=== PATIENT | male | born 1965 | race Caucasian/White ===

== ENCOUNTER 2017-02-21 15:13 | Inpatient (IN) | payer MEDICAID ==
[~2017-02-21] VITALS: Ht 124.5 cm; Wt 61.9 kg
[2017-02-21] MEDS ORDERED: morphine 4 MG/ML VIAL IV STA (15:54)
[2017-02-21] MEDS ORDERED: KETOROLAC 30 MG INJ IV STA (15:54)
[2017-02-21] MEDS ORDERED: HYDR-906 PO (16:14)
[2017-02-21] MEDS ORDERED: NAPR-685 PO (16:14)
--- NOTE | 2017-02-21 16:21 | ERD ---
ER Documentation Chief Complaint Date/Time DATE: 02/21/17 TIME: 16:16 Chief Complaint Chronic pain exacerbated by bed at his new residential. HPI This 52-year-old male comes emergency room from his residential facility complaining of pain. He says that the beds that are not very good and he has chronic back pain. Also complains of whole body pain. This is pain is chronic and this is not new for him. He denies any fevers chills specific chest pain, nausea and vomiting. States he does not want a shot for the pain he wants an IV started to get pain medication. He has chronic debility with multiple amputations. States that he feels somewhat lightheaded. Denies any history of blood in his stool. Does not know if his hemoglobin is ever been low. ROS All systems reviewed and are negative except as per history of present illness. Medications Home Meds Active Scripts Hydrocodone/Acetaminophen ([place] 5-325 Tablet) 1 Each Tablet, 1 EACH PO Q6, #10 TAB Prov:CHINA BRADLEY DO 02/21/17 Naproxen* (Naproxen*) 375 Mg Tablet, 375 MG PO BID Y for PAIN, #10 TAB Prov:CHINA BRADLEY DO 02/21/17 Reported Medications Rivaroxaban* (Xarelto*) 15 Mg Tablet, 15 MG PO WITH DINNER, TAB 02/21/17 Pantoprazole* (Pantoprazole*) 40 Mg Tablet.dr, 40 MG PO AC BREAKFAST, TAB 02/21/17 Ondansetron Hcl* (Ondansetron Hcl*) 4 Mg Tablet, 4 MG PO Q6H Y for NAUSEA AND/ OR VOMITING, TAB 02/21/17 Morphine Sulfate* (Morphine* Liq) 10 Mg/5 Ml Solution, 2.5 MG PO Q6H Y for NEEDED, ML FOR SEVERE PAIN 7-10 SCALE 02/21/17 Magnesium Hydroxide* (Milk Of Magnesia*) 400 Mg/5 Ml Oral.susp, 30 ML PO DAILY, ML 02/21/17 Metoprolol Tartrate* (Lopressor*) 25 Mg Tab, 12.5 MG PO BID, #60 TAB HOLD FOR BP<100 OR HR<60 02/21/17 Magnesium Oxide* (Magnesium Oxide*) 400 Mg Tablet, 400 MG PO DAILY, TAB 02/21/17 Lorazepam* (Lorazepam*) 0.5 Mg Tablet, 0.5 MG PO Q4 Y for ANXIETY, TAB 02/21/17 Ibuprofen* (Ibuprofen*) 400 Mg Tablet, 400 MG PO Q6H Y for PAIN, TAB MAILD PAIN 02/21/17 Furosemide* (Furosemide*) 20 Mg Tablet, 20 MG PO DAILY, #60 TAB 02/21/17 Docusate Sodium* (Docusate Sodium*) 100 Mg Capsule, 100 MG PO BID, #60 CAP 02/21/17 Aspirin* (Aspirin* EC) 81 Mg Tablet.dr, 81 MG PO DAILY, TAB 02/21/17 Amiodarone Hcl* (Amiodarone Hcl*) 200 Mg Tablet, 200 MG PO BID, #60 TAB HOLD FOR SBP<100 02/21/17 Albuterol Sulfate* (Albuterol Sulfate* Neb) 0.083%-3 Ml Neb, 1.25 MG NEB Q4H, # 30 VIAL 02/21/17 Acetaminophen* (Acetaminophen*) 325 Mg Tablet, 325 MG PO Q4H Y for PAIN AND OR ELEVATED TEMP, #30 TAB FOR TEMP.>100F 02/21/17 Allergies Allergies: Coded Allergies: vancomycin (Verified Allergy, Unknown, 02/21/17) Physical Exam Vitals Vital Signs Date Time Temp Pulse Resp B/P Pulse Ox O2 Delivery O2 Flow Rate FiO2 02/21/17 22:58 98.4 98 16 125/90 98 Room Air 02/21/17 21:00 98 16 121/81 98 Room Air 02/21/17 18:27 98.6 98 20 110/69 98 Room Air 02/21/17 16:05 97.9 106 22 146/74 95 Physical Exam Const: [] No distress Head: Atraumatic Eyes: Normal Conjunctiva ENT: Normal External Ears, Nose and Mouth. Neck: Full range of motion..~ No meningismus. Resp: Clear to auscultation bilaterally Cardio: Regular rate and rhythm, no murmurs Abd: Soft, non tender, non distended. Normal bowel sounds Skin: No petechiae or rashes Back: No midline or flank tenderness Ext: No cyanosis, or edema, amputations of all 4 extremities with no signs of infection and good capillary refill. Neur: Awake and alert and oriented 3, no focal deficits Psych: Normal Mood and Affect Result Diagram: 02/21/17 1835 02/21/17 1835 Results 24 hrs Laboratory Tests Test 02/21/17 18:35 White Blood Count 7.810^3/ul Red Blood Count 3.2310^6/ul Hemoglobin 7.9g/dl Hematocrit 27.9% Mean Corpuscular Volume 86.4fl Mean Corpuscular Hemoglobin 24.5pg Mean Corpuscular Hemoglobin Concent 28.3g/dl Red Cell Distribution Width 22.6% Platelet Count 10810^3/UL Mean Platelet Volume 8.1fl Neutrophils % 75.7% Lymphocytes % 14.5% Monocytes % 7.2% Eosinophils % 1.8% Basophils % 0.4% Nucleated Red Blood Cells % 0.0/100WBC Neutrophils # (Manual) 5.910^3/ul Lymphocytes # 1.110^3/ul Monocytes # 0.610^3/ul Eosinophils # 0.110^3/ul Basophils # 0.010^3/ul Nucleated Red Blood Cells # 0.010^3/ul Sodium Level 131mmol/L Potassium Level 4.5mmol/L Chloride Level 99mmol/L Carbon Dioxide Level 24mmol/L Anion Gap 13 Blood Urea Nitrogen 27mg/dl Creatinine 0.82mg/dl Glucose Level 72mg/dl Calcium Level 9.3mg/dl Total Bilirubin 0.4mg/dl Direct Bilirubin 0.00mg/dl Indirect Bilirubin 0.4mg/dl Aspartate Amino Transf (AST/SGOT) 37IU/L Alanine Aminotransferase (ALT/SGPT) 25IU/L Alkaline Phosphatase 371IU/L Total Protein 7.8g/dl Albumin 3.1g/dl Globulin 4.70g/dl Albumin/Globulin Ratio 0.65 Salicylates Level < 1.0mg/dl Acetaminophen Level < 10.0ug/ml Ethyl Alcohol Level < 10.0mg/dl Current Medications Medications (Trade) Dose Ordered Sig/Sofia Route PRN Reason Start Time Stop Time Status Last Admin Dose Admin Ketorolac Tromethamine (Toradol) 30 mg ONCE STAT IV 02/21/17 15:54 02/21/17 16:25 DC Morphine Sulfate (morphine) 4 mg ONCE STAT IV 02/21/17 15:54 02/21/17 16:25 DC Ketorolac Tromethamine (Toradol) 60 mg ONCE STAT IM 8/15/17 16:23 02/21/17 18:57 DC Morphine Sulfate (morphine) 4 mg ONCE ONCE IM 02/21/17 16:30 02/21/17 18:57 DC Haloperidol (Haldol) 5 mg ONCE STAT IM 02/21/17 17:40 02/21/17 18:57 DC Acetaminophen/ Hydrocodone Bitart ([place] (5/325)) 1 tab ONCE ONCE PO 02/21/17 19:00 02/21/17 19:01 DC 02/21/17 19:11 Ondansetron HCl (Zofran Inj) 4 mg BRIDGE ORDER PRN IV NAUSEA AND/OR VOMITING 02/21/17 22:00 02/22/17 21:59 Acetaminophen (Tylenol Tab) 650 mg ER BRIDGE PRN PO MILD PAIN/FEVER 02/21/17 22:00 02/22/17 21:59 Procedures/MDM Exacerbation of chronic pain. Patient is unfortunate debilitated patient multiple amputations however he does display some drug seeking behavior. Gave him the benefit of the doubt and administered IV Toradol and morphine. His pain is reduced. Does have mild tachycardia with a hemoglobin of 7.9. Currently he states he does not want any blood transfusion. He will be admitted for further workup of his anemia and mild tachycardia. media planner interpretation: Mild sinus tachycardia alternating with normal sinus rhythm in 90s. No arrhythmia Departure Diagnosis: Primary Impression: Chronic pain Additional Impressions: Normocytic anemia Symptomatic anemia Hyponatremia Condition: Stable Patient Instructions: Back Pain (Acute Or Chronic), Chronic Pain Additional Instructions: Call your primary care doctor TOMORROW for an appointment during the next 2-3 days.See the doctor sooner or return here if your condition worsens before your appointment time. CHINA BRADLEY DO Feb 21, 2017 16:21
[2017-02-21] MEDS ORDERED: KETOROLAC 60 MG INJ IM STA (16:23)
[2017-02-21] MEDS ORDERED: morphine 10 MG INJ IM ONE (16:30)
[2017-02-21] MEDS ORDERED: HALOPERIDOL 5 MG INJ IM STA (17:40)
[2017-02-21] MEDS ORDERED: HYDROCODONE/APAP (5/325) TAB PO ONE (19:00)
[2017-02-21 19:07] LABS: ABNORMAL IP MESSAGE 1; BASOPHILS % 0.4 % (0.0-2.0); EOSINOPHILS # 0.1 10^3/ul (0.0-0.5); EOSINOPHILS % 1.8 % (0.0-7.0); HEMATOCRIT 27.9 % (42.0-52.0); HEMOGLOBIN 7.9 g/dl (14.0-18.0); LYMPHOCYTES # 1.1 10^3/ul (0.8-2.9); LYMPHOCYTES % 14.5 % (15.0-51.0); MEAN CORPUSCULAR HEMOGLOBIN 24.5 pg (29.0-33.0); MEAN CORPUSCULAR HGB CONC 28.3 g/dl (32.0-37.0); MEAN CORPUSCULAR VOLUME 86.4 fl (82.0-101.0); MEAN PLATELET VOLUME 8.1 fl (7.4-10.4); MONOCYTE # 0.6 10^3/ul (0.3-0.9); MONOCYTES % 7.2 % (0.0-11.0); NEUTROPHILS % 75.7 % (39.0-77.0); PLATELET COUNT 546 10^3/UL (140-415); POSITIVE DIFF @See below; RED BLOOD COUNT 3.23 10^6/ul (4.70-6.10); RED CELL DISTRIBUTION WIDTH 22.6 % (11.5-14.5); WHITE BLOOD COUNT 7.8 10^3/ul (4.8-10.8)
[2017-02-21 19:26] LABS: ALANINE AMINOTRANSFERASE 25 IU/L (13-69); ALBUMIN 3.1 g/dl (3.3-4.9); ALBUMIN/GLOBULIN RATIO 0.65; ALKALINE PHOSPHATASE 371 IU/L (42-121); ANION GAP 13 (8-16); ASPARTATE AMINO TRANSFERASE 37 IU/L (15-46); BILIRUBIN,INDIRECT 0.4 mg/dl (0-1.1); BILIRUBIN,TOTAL 0.4 mg/dl (0.2-1.3); BLOOD UREA NITROGEN 27 mg/dl (7-20); CALCIUM 9.3 mg/dl (8.4-10.2); CARBON DIOXIDE 24 mmol/L (21-31); CHLORIDE 99 mmol/L (97-110); CREATININE 0.82 mg/dl (0.61-1.24); GLUCOSE 72 mg/dl (70-220); POTASSIUM 4.5 mmol/L (3.5-5.1); SODIUM 131 mmol/L (135-144); TOTAL PROTEIN 7.8 g/dl (6.1-8.1)
[2017-02-21 19:27] LABS: ACETAMINOPHEN < 10.0 ug/ml (10.0-30.0); ETHANOL < 10.0 mg/dl; SALICYLATE < 1.0 mg/dl (5.0-30.0)
[2017-02-21] MEDS ORDERED: ACET325T45 PO (21:44)
[2017-02-21] MEDS ORDERED: ALBU2.5V3 NEB (21:45)
[2017-02-21] MEDS ORDERED: AMIO200T2 PO (21:46)
[2017-02-21] MEDS ORDERED: ASPI-664 PO (21:46)
[2017-02-21] MEDS ORDERED: DOCU-159 PO (21:46)
[2017-02-21] MEDS ORDERED: FURO20TA3 PO (21:47)
[2017-02-21] MEDS ORDERED: IBUP400T22 PO (21:48)
[2017-02-21] MEDS ORDERED: MAGN400T28 PO (21:49)
[2017-02-21] MEDS ORDERED: LORA0.5T PO (21:49)
[2017-02-21] MEDS ORDERED: MAGN400O4 PO (21:51)
[2017-02-21] MEDS ORDERED: METO-448 PO (21:51)
[2017-02-21] MEDS ORDERED: ONDA4TAB95 PO (21:54)
[2017-02-21] MEDS ORDERED: MORP10SO4 PO (21:54)
[2017-02-21] MEDS ORDERED: PANT40TA4 PO (21:55)
[2017-02-21] MEDS ORDERED: RIVA15TA PO (21:56)
[2017-02-21] MEDS ORDERED: ONDANSETRON 4 MG INJ IV PRN (22:00)
[2017-02-21] MEDS ORDERED: ACETAMINOPHEN 325 MG TAB PO PRN (22:00)
[2017-02-21 22:58] VITALS: PULSE 98; TEMP 98.4
[2017-02-21 23:50] VITALS: Ht 124.5 cm; Wt 61.9 kg
[2017-02-22] MEDS ORDERED: ACETAMINOPHEN 325 MG TAB PO PRN (01:00)
[2017-02-22 03:00] VITALS: BP 99/59; RESP 18
--- NOTE | 2017-02-22 06:29 | HP ---
Date/Time of Note Date/Time of Note DATE: 02/22/17 TIME: 06:11 Assessment/Plan VTE Prophylaxis VTE Prophylaxis Intervention: other (We will hold blood thinners and given patient is anemic. No SCDs due to bilateral lower extremity amputation) Lines/Catheters IV Catheter Type (from Rust): No IV access Urinary Cath still in place: Yes (pt admitted with f/c) Reason Cath still needed: terminal illness/intractable pain Assessment/Plan Assessment/Plan 1. Chronic pain -Patient has bilateral upper and lower extremity limb amputation and has been residing at the [facility]. Patient was transferred to [facility] mainly for pain management. -Palliative care/pain management consult will be placed with Dr. Gauthier 2. Bilateral upper and lower limb amputation -Supportive care 3. CAD with a history of stent -Continue cardiac meds 4. Likely history of systolic dysfunction -will order 2D echo -Cardiology consult was needed 5. Anemia, likely secondary to chronic disease -Iron panel to evaluate for iron deficiency -FOBT to evaluate for GI blood loss especially given patient has been on rivaroxaban 6. Mild hyponatremia -NS IVF HPI/ROS Admit Date/Time Admit Date/Time Feb 21, 2017 at 21:33 Hx of Present Illness This is a 52-year-old male with history of CAD with stent, likely systolic dysfunction, bilateral upper and lower extremity limb amputation who was sent from [facility] for pain management. Patient stated that he does not like facility because his pain is not controlled, does not like the food and the bed is uncomfortable. When he presented to the ER, his heart rate was 106 otherwise rest of his vitals and limits of normal range. Labs shows hemoglobin of 7.9, sodium 131, BUN 27 and alk phos 371 otherwise CBC and CMP within acceptable range. Patient reportedly refused blood transfusion in the ER. PMH/Family/Social Past Medical History Medical History: congestive heart failure, coronary artery disease Past Surgical History Past Surgical Hx: other (Bilateral upper and lower extremity amputations) Social History Alcohol Use: none Smoking Status: Unknown if ever smoked Drug Use: none Exam/Review of Systems Vital Signs Vitals Vital Signs Date Time Temp Pulse Resp B/P Pulse Ox O2 Delivery O2 Flow Rate FiO2 02/22/17 03:00 98.0 100 18 99/59 93 02/21/17 22:58 Room Air Intake and Output 02/21/17 02/21/17 02/22/17 15:00 23:00 07:00 Intake Total 480 ml Output Total 900 ml Balance -420 ml Exam Constitutional: other (In mild distress due to pain. ) Head: atraumatic, normocephalic Eyes: PERRL Respiratory: clear to auscultation, normal air movement Cardiovascular: other (Tachycardic with regular rhythm) Gastrointestinal: soft Extremities: other (Bilateral upper and lower extremity amputations) Labs Result Diagram: 02/21/17183402/21/17 183 Medications Medications Current Medications Acetaminophen/ Hydrocodone Bitart ([place] (5/325)) 1 tab Q4H PRN PO PAIN; Start 02/22/17 at 01:00 Ondansetron HCl (Zofran Tab) 4 mg Q6H PRN PO NAUSEA AND/OR VOMITING; Start at 01:00 Acetaminophen (Tylenol Tab) 650 mg Q6H PRN PO PAIN AND OR ELEVATED TEMP; Start 02/22/17 at 01:00 Amiodarone HCl (Cordarone) 200 mg BID PO ; Start 02/22/17 at 09:00; Status UNV Aspirin (Halfprin) 81 mg DAILY PO ; Start 02/22/17 at 09:00; Status UNV Docusate Sodium (Colace) 100 mg BID PO ; Start 02/22/17 at 09:00; Status UNV Furosemide (Lasix) 20 mg DAILY PO ; Start 02/22/17 at 09:00; Status UNV Lorazepam (Ativan) 0.5 mg Q4 PRN PO ANXIETY; Start 02/22/17 at 06:30; Status UNV Magnesium Oxide (Mag-Ox 400) 400 mg DAILY PO ; Start 02/22/17 at 09:00; Status UNV Metoprolol Tartrate (Lopressor) 12.5 mg BID PO ; Start 02/22/17 at 09:00; Status UNV VENKAT CHEEMA MD Feb 22, 2017 06:25
[2017-02-22] MEDS ORDERED: LORAZEPAM 0.5 MG TAB PO PRN (06:30)
[2017-02-22] MEDS: PANTOPRAZOLE (EC) 40 MG TAB PO SCH (07:30)
[2017-02-22] MEDS: MAGNESIUM OXIDE 400 MG TAB PO SCH (09:00)
--- NOTE | 2017-02-22 11:12 | RADRPT ---
Echocardiogram Report Patient Name: CHRISTIANO GODINEZ Gender: Male Date: 1965 Study Date: 22-Feb-2017 Stringed Instrument Repairer: [facility] Location: 2266 Ref. Physician: VENKAT CHEEMA Quality: Adequate Procedures: Transthoracic echocardiogram with complete 2D, M-Mode, and doppler examination. Indications: Eval for depreessed EF. 2D/M Mode Doppler Measurement Value Normal Ranges Measurement Value Normal Ranges LVIDd 2D 6.7 3.5 - 5.6 cm AV Peak Kailash 1.1 m/sec LVIDs 2D 5.8 2.1 - 4.1 cm AV Peak PG 5.0 mmHg FS 2D 13.9 % LVOT Peak Kailash 0.9 m/sec LVPWd 2D 1.3 0.6 - 1.1 cm LVOT Peak PG 3.0 mmHg IVSd 2D 1.3 0.6 - 1.1 cm MV E Peak Kailash 1.2 m/sec IVS/LVPW 2D 1.0 TR Peak Kailash 3.3 m/sec AoR Diam 2D 2.9 2.0 - 3.7 cm TR Peak PG 44.0 mmHg LA/Ao 2D 2 0 - 1 RVSP 52.0 mmHg EDV 2D 306.0 cm3 ESV 2D 195.0 cm3 LA Dimen 2D 4.7 2.3 - 4.0 cm Findings Left Ventricle: Mild concentric left ventricular hypertrophy. Severe enlargement of left ventricle cavity. Severe global left ventricular systolic dysfunction. Ejection fraction is visually estimated at 25 %. Abnormal Diastolic Function. Right Ventricle: Normal right ventricular size. Mild to moderate right ventricular hypokinesis. Left Atrium: There is moderate enlargement of left atrium. Right Atrium: Right atrium at upper limits of normal. Mitral Valve: Mild mitral leaflet calcification. Mild mitral annular calcification. Trace mitral regurgitation. Aortic Valve: No hemodynamically significant aortic stenosis by doppler. Aortic cusps appear mildly calcified. Trace aortic valve regurgitation. Tricuspid Valve: Normal appearance of the tricuspid valve. Estimated peak PA systolic pressure 52 mmHg. There is moderate tricuspid regurgitation. Pulmonic Valve: Pulmonic valve not well visualized. There is trace pulmonic regurgitation. Pericardium: Normal pericardium with no significant pericardial effusion. Aorta: Normal aortic root. IVC: Normal size and poor respiratory collapse consistent with elevated right atrial pressure. Conclusions 1.Mild concentric left ventricular hypertrophy. Severe enlargement of left ventricle cavity. Severe global left ventricular systolic dysfunction. Ejection fraction is visually estimated at 25 %. Abnormal Diastolic Function. 2.Normal right ventricular size. Mild to moderate right ventricular hypokinesis. 3.There is moderate enlargement of left atrium. 4.Right atrium at upper limits of normal. 5.Estimated peak PA systolic pressure 52 mmHg. There is moderate tricuspid regurgitation. 6.No significant valvular stenosis or regurgitation seen of remaining visualized valves. 7.Normal pericardium with no significant pericardial effusion. Electronically Signed By: Zak Alonzo 22-Feb-2017 11:11:40 -0700 Patient Name: CHRISTIANO GODINEZ Study Date: 22-Feb-2017 [id number]
--- NOTE | 2017-02-22 14:40 | PN ---
Date/Time of Note Date/Time of Note DATE: 02/22/17 TIME: 14:36 Assessment/Plan VTE Prophylaxis VTE Prophylaxis Intervention: contraindicated Lines/Catheters IV Catheter Type (from Nrsg): No IV access Urinary Cath still in place: Yes Reason Cath still needed: urinary retention Assessment/Plan Chief Complaint/Hosp Course Assessment/Plan: 52-year-old male from nursing home facility prior history of bilateral lower extremity amputations presents with: 1. Chronic pain -Patient has bilateral upper and lower extremity limb amputation and has been residing at the [facility]. Patient was transferred to [facility] mainly for pain management. -Palliative care/pain management consult will be placed with Dr. Gauthier- follow-up recommendation 2. Bilateral upper and lower limb amputation -Supportive care 3. CAD with a history of stent -Continue cardiac meds 4. Likely history of systolic dysfunction: Echocardiogram showed ejection fraction of 25%,Mild concentric left ventricular hypertrophy. Severe enlargement of left ventricle cavity. Severe global left ventricular systolic dysfunction. And moderate aortic regurg. -2 new current meds 5. Anemia, likely secondary to chronic disease -Iron panel to evaluate for iron deficiency -FOBT to evaluate for GI blood loss especially given patient has been on rivaroxaban (we are holding this medicine) 6. Mild hyponatremia -NS IVF Problems: Subjective 24 Hr Interval Summary Free Text/Dictation Patient refused blood draw and telemetry psych eval. Exam/Review of Systems Vital Signs Vitals Vital Signs Date Time Temp Pulse Resp B/P Pulse Ox O2 Delivery O2 Flow Rate FiO2 02/22/17 03:00 98.0 100 18 99/59 93 02/21/17 22:58 Room Air Intake and Output 02/21/17 02/21/17 02/22/17 15:00 23:00 07:00 Intake Total 480 ml Output Total 900 ml Balance -420 ml Exam Constitutional: Lying in bed, no acute distress Head: atraumatic, normocephalic Eyes: PERRL Respiratory: clear to auscultation, normal air movement Cardiovascular: S1, S2 heard Gastrointestinal: soft Extremities: other (Bilateral upper and lower extremity amputations) Results Result Diagram: 02/21/17 1835 02/21/17 1835 Results 24 hrs Laboratory Tests Test 02/21/17 18:35 White Blood Count 7.8 Red Blood Count 3.23 L Hemoglobin 7.9 L Hematocrit 27.9 L Mean Corpuscular Volume 86.4 Mean Corpuscular Hemoglobin 24.5 L Mean Corpuscular Hemoglobin Concent 28.3 L Red Cell Distribution Width 22.6 H Platelet Count 546 H Mean Platelet Volume 8.1 Neutrophils % 75.7 Lymphocytes % 14.5 L Monocytes % 7.2 Eosinophils % 1.8 Basophils % 0.4 Nucleated Red Blood Cells % 0.0 Neutrophils # (Manual) 5.9 Lymphocytes # 1.1 Monocytes # 0.6 Eosinophils # 0.1 Basophils # 0.0 Nucleated Red Blood Cells # 0.0 Sodium Level 131 L Potassium Level 4.5 Chloride Level 99 Carbon Dioxide Level 24 Anion Gap 13 Blood Urea Nitrogen 27 H Creatinine 0.82 Glucose Level 72 Calcium Level 9.3 Total Bilirubin 0.4 Direct Bilirubin 0.00 Indirect Bilirubin 0.4 Aspartate Amino Transf (AST/SGOT) 37 Alanine Aminotransferase (ALT/SGPT) 25 Alkaline Phosphatase 371 H Total Protein 7.8 Albumin 3.1 L Globulin 4.70 H Albumin/Globulin Ratio 0.65 Salicylates Level < 1.0 L Acetaminophen Level < 10.0 L Ethyl Alcohol Level < 10.0 Medications Medications Current Medications Acetaminophen/ Hydrocodone Bitart ([place] (5/325)) 1 tab Q4H PRN PO PAIN; Start 02/22/17 at 01:00 Ondansetron HCl (Zofran Tab) 4 mg Q6H PRN PO NAUSEA AND/OR VOMITING; Start at 01:00 Acetaminophen (Tylenol Tab) 650 mg Q6H PRN PO PAIN AND OR ELEVATED TEMP; Start 02/22/17 at 01:00 Amiodarone HCl (Cordarone) 200 mg BID PO ; Start 02/22/17 at 09:00 Aspirin (Halfprin) 81 mg DAILY PO ; Start 02/22/17 at 09:00 Docusate Sodium (Colace) 100 mg BID PO ; Start 02/22/17 at 09:00 Furosemide (Lasix) 20 mg DAILY PO ; Start 02/22/17 at 09:00 Lorazepam (Ativan) 0.5 mg Q4 PRN PO ANXIETY; Start 02/22/17 at 06:30 Magnesium Oxide (Mag-Ox 400) 400 mg DAILY PO ; Start 02/22/17 at 09:00 Metoprolol Tartrate (Lopressor) 12.5 mg BID PO ; Start 02/22/17 at 09:00 Magnesium Hydroxide (Milk Of Mag) 30 ml DAILY PO ; Start 02/23/17 at 09:00 LIZ MACKEY Feb 22, 2017 14:40
[2017-02-22] MEDS: ALBUTEROL 0.083% (NEB) 2.5 MG/3 ML AMP NEB SCH ×2 (16:25→20:00)
[2017-02-22] MEDS ORDERED: RIVAROXABAN 15 MG TABLET PO SCH (18:05)
[2017-02-22] MEDS: DOCUSATE SODIUM 100 MG CAP PO SCH ×2 (18:31→21:00)
[2017-02-22] MEDS: AMIODARONE 200 MG TAB PO SCH ×2 (18:32→21:00)
[2017-02-22] MEDS: FUROSEMIDE 20 MG TAB PO SCH (18:33)
[2017-02-22] MEDS: ASPIRIN (EC) 81 MG TAB PO SCH (18:33)
[2017-02-22] MEDS: METOPROLOL 25 MG TAB PO SCH ×2 (18:34→21:00)
[2017-02-22 21:09] VITALS: BP 110/76; RESP 16
[2017-02-23] MEDS: ALBUTEROL 0.083% (NEB) 2.5 MG/3 ML AMP NEB SCH ×6 (00:58→21:00)
[2017-02-23 02:00] VITALS: BP 103/70; RESP 18
[2017-02-23] MEDS: DIPHENHYDRAMINE 25 MG CAP PO PRN (02:07)
[2017-02-23] MEDS: PANTOPRAZOLE (EC) 40 MG TAB PO SCH (07:30)
[2017-02-23 08:31] VITALS: BP 102/69; RESP 18
[2017-02-23] MEDS: MAGNESIUM OXIDE 400 MG TAB PO SCH (09:00)
[2017-02-23] MEDS: MAGNESIUM HYDROXIDE 30ML CUP PO SCH (09:00)
[2017-02-23] MEDS: METOPROLOL 25 MG TAB PO SCH ×2 (09:00→21:00)
[2017-02-23] MEDS: DOCUSATE SODIUM 100 MG CAP PO SCH ×2 (10:03→21:00)
[2017-02-23] MEDS: FUROSEMIDE 20 MG TAB PO SCH (10:03)
[2017-02-23] MEDS: ASPIRIN (EC) 81 MG TAB PO SCH (10:04)
[2017-02-23] MEDS: AMIODARONE 200 MG TAB PO SCH ×2 (10:04→21:00)
[2017-02-23] MEDS: HYDROCORTISONE 1% 28 GM CR TOP SCH ×2 (12:28→21:23)
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
--- NOTE | 2017-02-23 15:37 | PN ---
Date/Time of Note Date/Time of Note DATE: 02/23/17 TIME: 15:34 Assessment/Plan VTE Prophylaxis VTE Prophylaxis Intervention: contraindicated Lines/Catheters IV Catheter Type (from Nrsg): No IV access Urinary Cath still in place: Yes Reason Cath still needed: urinary retention Assessment/Plan Chief Complaint/Hosp Course Assessment/Plan: 52-year-old male prior history of CAD with stent, sent from half-way facility prior history of bilateral lower extremity amputations presents with: 1. Chronic pain -Patient has bilateral upper and lower extremity limb amputation and has been residing at the [facility]. Patient was transferred to [facility] mainly for pain management. -Palliative care/pain management consult will be placed with Dr. Farmer-follow -up recommendation 2. Bilateral upper and lower limb amputation -Supportive care 3. CAD with a history of stent -Continue cardiac meds 4. Likely history of systolic dysfunction: Echocardiogram showed ejection fraction of 25%,Mild concentric left ventricular hypertrophy. Severe enlargement of left ventricle cavity. Severe global left ventricular systolic dysfunction. And moderate aortic regurg. -2 new current meds 5. Anemia, likely secondary to chronic disease -Iron panel to evaluate for iron deficiency -FOBT to evaluate for GI blood loss especially given patient has been on rivaroxaban (we are holding this medicine) 6. Mild hyponatremia -NS IVF Dispo: We will try to get hospice eval inpatient for this patient, after discussion with palliative care team and social work therapist today. Problems: Subjective 24 Hr Interval Summary Free Text/Dictation Patient refused IV placement and blood draws this morning. Seen by social work therapist and palliative care team today as well. Exam/Review of Systems Vital Signs Vitals Vital Signs Date Time Temp Pulse Resp B/P Pulse Ox O2 Delivery O2 Flow Rate FiO2 02/23/17 08:31 97.9 93 18 102/69 96 02/22/17 21:30 Room Air 02/22/17 20:00 21 Intake and Output 02/22/17 02/22/17 02/23/17 15:00 23:00 07:00 Intake Total 1680 ml 850 ml Output Total 900 ml 1300 ml Balance 780 ml -450 ml Exam Constitutional: Lying in bed, no acute distress Head: atraumatic, normocephalic Eyes: PERRL Respiratory: clear to auscultation, normal air movement Cardiovascular: S1, S2 heard Gastrointestinal: soft Extremities: other (Bilateral upper and lower extremity amputations) Results Result Diagram: 02/21/175 02/21/17 183 Medications Medications Current Medications Acetaminophen/ Hydrocodone Bitart ([place] (5/325)) 1 tab Q4H PRN PO PAIN; Start 02/22/17 at 01:00 Ondansetron HCl (Zofran Tab) 4 mg Q6H PRN PO NAUSEA AND/OR VOMITING; Start at 01:00 Acetaminophen (Tylenol Tab) 650 mg Q6H PRN PO PAIN AND OR ELEVATED TEMP; Start 02/22/17 at 01:00 Amiodarone HCl (Cordarone) 200 mg BID PO Last administered on 02/23/17 10:04; Admin Dose 200 MG; Start 02/22/17 at 09:00 Aspirin (Halfprin) 81 mg DAILY PO Last administered on 02/23/17 10:04; Admin Dose 81 MG; Start 02/22/17 at 09:00 Docusate Sodium (Colace) 100 mg BID PO Last administered on 02/23/17 10:03; Admin Dose 100 MG; Start 02/22/17 at 09:00 Furosemide (Lasix) 20 mg DAILY PO Last administered on 02/23/17 10:03; Admin Dose 20 MG; Start 02/22/17 at 09:00 Magnesium Oxide (Mag-Ox 400) 400 mg DAILY PO ; Start 02/22/17 at 09:00 Metoprolol Tartrate (Lopressor) 12.5 mg BID PO Last administered on 02/22/17 18:34; Admin Dose 12.5 MG; Start 02/22/17 at 09:00 Magnesium Hydroxide (Milk Of Mag) 30 ml DAILY PO ; Start 02/23/17 at 09:00 Diphenhydramine HCl (Benadryl) 25 mg Q6H PRN PO ITCHING Last administered on 02:07; Admin Dose 25 MG; Start 02/23/17 at 02:00 Hydrocortisone (Hydrocortisone 1% Cr) 1 applic BID TOP Last administered on 12:28; Admin Dose 1 APPLIC; Start 02/23/17 at 10:30 LIZ MACKEY Feb 23, 2017 15:37
[2017-02-23 15:38] VITALS: BP 107/62; RESP 18
[2017-02-23 20:41] VITALS: BP 127/71; RESP 19
[2017-02-23] MEDS: HYDROCODONE/APAP (5/325) TAB PO PRN (22:44)
[2017-02-24] MEDS: ALBUTEROL 0.083% (NEB) 2.5 MG/3 ML AMP NEB SCH ×6 (01:00→20:52)
[2017-02-24 02:50] VITALS: BP 110/75; RESP 19
[2017-02-24] MEDS: PANTOPRAZOLE (EC) 40 MG TAB PO SCH (07:30)
[2017-02-24] MEDS: MAGNESIUM OXIDE 400 MG TAB PO SCH (09:00)
[2017-02-24] MEDS: MAGNESIUM HYDROXIDE 30ML CUP PO SCH (09:00)
[2017-02-24] MEDS: DOCUSATE SODIUM 100 MG CAP PO SCH ×2 (09:00→21:00)
[2017-02-24] MEDS: HYDROCORTISONE 1% 28 GM CR TOP SCH ×2 (09:00→21:00)
[2017-02-24] MEDS: AMIODARONE 200 MG TAB PO SCH ×2 (09:00→21:00)
[2017-02-24] MEDS: ASPIRIN (EC) 81 MG TAB PO SCH (09:00)
[2017-02-24] MEDS: METOPROLOL 25 MG TAB PO SCH ×2 (09:00→21:00)
[2017-02-24] MEDS: FUROSEMIDE 20 MG TAB PO SCH (09:00)
[2017-02-24 09:45] VITALS: BP 104/69; RESP 22
[2017-02-24] MEDS: HYDROCODONE/APAP (5/325) TAB PO PRN ×2 (10:16→21:54)
--- NOTE | 2017-02-24 14:02 | PN ---
Date/Time of Note Date/Time of Note DATE: 02/24/17 TIME: 14:01 Assessment/Plan VTE Prophylaxis VTE Prophylaxis Intervention: contraindicated Lines/Catheters IV Catheter Type (from Nrsg): No IV access Urinary Cath still in place: Yes Reason Cath still needed: urinary retention Assessment/Plan Chief Complaint/Hosp Course Assessment/Plan: 52-year-old male prior history of CAD with stent, sent from nursing home facility prior history of bilateral lower extremity amputations presents with: 1. Chronic pain -Patient has bilateral upper and lower extremity limb amputation and has been residing at the [facility]. Patient was transferred to [facility] mainly for pain management. -Palliative care/pain management consult will be placed with Dr. Farmer-follow -up recommendation 2. Bilateral upper and lower limb amputation -Supportive care 3. CAD with a history of stent -Continue cardiac meds 4. Likely history of systolic dysfunction: Echocardiogram showed ejection fraction of 25%,Mild concentric left ventricular hypertrophy. Severe enlargement of left ventricle cavity. Severe global left ventricular systolic dysfunction. And moderate aortic regurg. -2 new current meds 5. Anemia, likely secondary to chronic disease -Iron panel to evaluate for iron deficiency -FOBT to evaluate for GI blood loss especially given patient has been on rivaroxaban (we are holding this medicine) 6. Mild hyponatremia -NS IVF Dispo: We will try to get hospice eval inpatient for this patient, after discussion with palliative care team and healthcare social worker today-they are arranging with santi from hospice to come reevaluate the patient, patient was under their care before this admission. Her showcase trimmer notes, they will send a novelties sales representative today to come visit with the patient to reevaluate. Problems: Subjective 24 Hr Interval Summary Free Text/Dictation Patient had some agitation last night. Per nursing staff agreeing to take some but not all of his medications. Exam/Review of Systems Vital Signs Vitals Vital Signs Date Time Temp Pulse Resp B/P Pulse Ox O2 Delivery O2 Flow Rate FiO2 02/24/17 09:45 97.8 92 22 104/69 02/24/17 09:30 95 Room Air 02/24/17 05:06 21 Intake and Output 02/23/17 02/23/17 02/24/17 15:00 23:00 07:00 Intake Total 500 ml 500 ml Output Total 550 ml 950 ml Balance -50 ml -450 ml Exam Constitutional: Lying in bed, no acute distress Head: atraumatic, normocephalic Eyes: PERRL Respiratory: clear to auscultation, normal air movement Cardiovascular: S1, S2 heard Gastrointestinal: soft Extremities: other (Bilateral upper and lower extremity amputations) Results Result Diagram: 02/21/17183402/21/171834 Medications Medications Current Medications Acetaminophen/ Hydrocodone Bitart ([place] (5/325)) 1 tab Q4H PRN PO PAIN Last administered on 02/24/17 10:16; Admin Dose 1 TAB; Start 02/22/17 at 01:00 Ondansetron HCl (Zofran Tab) 4 mg Q6H PRN PO NAUSEA AND/OR VOMITING; Start at 01:00 Acetaminophen (Tylenol Tab) 650 mg Q6H PRN PO PAIN AND OR ELEVATED TEMP; Start 02/22/17 at 01:00 Amiodarone HCl (Cordarone) 200 mg BID PO Last administered on 02/24/17 09:00; Admin Dose 200 MG; Start 02/22/17 at 09:00 Aspirin (Halfprin) 81 mg DAILY PO Last administered on 02/24/17 09:00; Admin Dose 81 MG; Start 02/22/17 at 09:00 Docusate Sodium (Colace) 100 mg BID PO Last administered on 02/24/17 09:00; Admin Dose 100 MG; Start 02/22/17 at 09:00 Furosemide (Lasix) 20 mg DAILY PO Last administered on 02/24/17 09:00; Admin Dose 20 MG; Start 02/22/17 at 09:00 Magnesium Oxide (Mag-Ox 400) 400 mg DAILY PO ; Start 02/22/17 at 09:00 Metoprolol Tartrate (Lopressor) 12.5 mg BID PO Last administered on 02/22/17 18:34; Admin Dose 12.5 MG; Start 02/22/17 at 09:00 Magnesium Hydroxide (Milk Of Mag) 30 ml DAILY PO ; Start 02/23/17 at 09:00 Diphenhydramine HCl (Benadryl) 25 mg Q6H PRN PO ITCHING Last administered on 02:07; Admin Dose 25 MG; Start 02/23/17 at 02:00 Hydrocortisone (Hydrocortisone 1% Cr) 1 applic BID TOP Last administered on t 09:00; Admin Dose 1 APPLIC; Start 02/23/17 at 10:30 LIZ MACKEY Feb 24, 2017 14:02
[2017-02-24 16:32] VITALS: BP 103/56; RESP 20
[2017-02-24 20:00] VITALS: BP 101/72; RESP 18
[2017-02-25] MEDS: ALBUTEROL 0.083% (NEB) 2.5 MG/3 ML AMP NEB SCH ×6 (00:41→21:00)
[2017-02-25] MEDS: PANTOPRAZOLE (EC) 40 MG TAB PO SCH (06:30)
[2017-02-25] MEDS: MAGNESIUM HYDROXIDE 30ML CUP PO SCH (09:00)
[2017-02-25] MEDS: HYDROCORTISONE 1% 28 GM CR TOP SCH ×3 (09:00→21:00)
[2017-02-25] MEDS: MAGNESIUM OXIDE 400 MG TAB PO SCH (09:00)
[2017-02-25] MEDS: METOPROLOL 25 MG TAB PO SCH ×2 (09:00→21:00)
[2017-02-25] MEDS: AMIODARONE 200 MG TAB PO SCH ×2 (09:18→21:00)
[2017-02-25] MEDS: ASPIRIN (EC) 81 MG TAB PO SCH (09:18)
[2017-02-25] MEDS: FUROSEMIDE 20 MG TAB PO SCH (09:18)
[2017-02-25] MEDS: DOCUSATE SODIUM 100 MG CAP PO SCH ×2 (09:19→21:00)
[2017-02-25 10:14] VITALS: BP 101/63; RESP 20
--- NOTE | 2017-02-25 13:00 | PN ---
Date/Time of Note Date/Time of Note DATE: 02/25/17 TIME: 12:56 Assessment/Plan VTE Prophylaxis VTE Prophylaxis Intervention: contraindicated Lines/Catheters IV Catheter Type (from Nrsg): No IV access Urinary Cath still in place: Yes Reason Cath still needed: urinary retention Assessment/Plan Chief Complaint/Hosp Course Assessment/Plan: 52-year-old male prior history of CAD with stent, [facility] prior history of bilateral lower extremity amputations presents with: 1. Chronic pain-somewhat improved symptoms now -Patient has bilateral upper and lower extremity limb amputation and has been residing at the [facility]. Patient was transferred to [facility] mainly for pain management. -Palliative care/pain management consult appreciated, follow-up with them and lining caser regarding possible placement options for patient 2. Bilateral upper and lower limb amputation -Supportive care 3. CAD with a history of stent -Continue cardiac meds 4. Likely history of systolic dysfunction: Echocardiogram showed ejection fraction of 25%,Mild concentric left ventricular hypertrophy. Severe enlargement of left ventricle cavity. Severe global left ventricular systolic dysfunction. And moderate aortic regurg. -Continue current medications 5. Anemia, likely secondary to chronic disease -Iron panel to evaluate for iron deficiency -FOBT to evaluate for GI blood loss especially given patient has been on rivaroxaban (we are holding this medicine) 6. Mild hyponatremia -NS IVF Dispo: We are awaiting final decision on hospice placement options as inpatient for this patient. Again, [facility] hospice care team and social services coordinator evaluated patient yesterday. wash house worker also trying to contact son of patient as well. Problems: Subjective 24 Hr Interval Summary Free Text/Dictation Patient complaining of some scalp itching today. Patient met with [facility] hospice service liaison representative yesterday. Exam/Review of Systems Vital Signs Vitals Vital Signs Date Time Temp Pulse Resp B/P Pulse Ox O2 Delivery O2 Flow Rate FiO2 02/25/17 10:14 97.6 92 20 101/63 02/24/17 09:30 95 Room Air 02/24/17 05:06 21 Intake and Output 02/24/17 02/24/17 02/25/17 15:00 23:00 07:00 Intake Total 2160 ml 720 ml Output Total 650 ml 800 ml Balance 1510 ml -80 ml Exam Constitutional: Lying in bed, no acute distress Head: atraumatic, normocephalic Eyes: PERRL Respiratory: clear to auscultation, normal air movement Cardiovascular: S1, S2 heard Gastrointestinal: soft Extremities: other (Bilateral upper and lower extremity amputations) Results Result Diagram: 02/21/17183402/21/171834 Medications Medications Current Medications Acetaminophen/ Hydrocodone Bitart ([place] (5/325)) 1 tab Q4H PRN PO PAIN Last administered on 02/24/17 21:54; Admin Dose 1 TAB; Start 02/22/17 at 01:00 Ondansetron HCl (Zofran Tab) 4 mg Q6H PRN PO NAUSEA AND/OR VOMITING; Start at 01:00 Acetaminophen (Tylenol Tab) 650 mg Q6H PRN PO PAIN AND OR ELEVATED TEMP; Start 02/22/17 at 01:00 Amiodarone HCl (Cordarone) 200 mg BID PO Last administered on 02/25/17 09:18; Admin Dose 200 MG; Start 02/22/17 at 09:00 Aspirin (Halfprin) 81 mg DAILY PO Last administered on 02/25/17 09:18; Admin Dose 81 MG; Start 02/22/17 at 09:00 Docusate Sodium (Colace) 100 mg BID PO Last administered on 02/25/17 09:19; Admin Dose 100 MG; Start 02/22/17 at 09:00 Furosemide (Lasix) 20 mg DAILY PO Last administered on 02/25/17 09:18; Admin Dose 20 MG; Start 02/22/17 at 09:00 Magnesium Oxide (Mag-Ox 400) 400 mg DAILY PO ; Start 02/22/17 at 09:00 Metoprolol Tartrate (Lopressor) 12.5 mg BID PO Last administered on 02/22/17 18:34; Admin Dose 12.5 MG; Start 02/22/17 at 09:00 Magnesium Hydroxide (Milk Of Mag) 30 ml DAILY PO ; Start 02/23/17 at 09:00 Diphenhydramine HCl (Benadryl) 25 mg Q6H PRN PO ITCHING Last administered on 02:07; Admin Dose 25 MG; Start 02/23/17 at 02:00 Hydrocortisone (Hydrocortisone 1% Cr) 1 applic BID TOP ; Start 02/24/17 at 21:00 LIZ MACKEY Feb 25, 2017 13:00
[2017-02-25 17:14] VITALS: BP 96/69; RESP 20
[2017-02-25 19:53] VITALS: BP 110/68; RESP 18
[2017-02-25] MEDS: DIPHENHYDRAMINE 25 MG CAP PO PRN (21:21)
[2017-02-26] MEDS: ALBUTEROL 0.083% (NEB) 2.5 MG/3 ML AMP NEB SCH ×6 (00:09→20:51)
[2017-02-26] MEDS: HYDROCODONE/APAP (5/325) TAB PO PRN (04:52)
[2017-02-26] MEDS: PANTOPRAZOLE (EC) 40 MG TAB PO SCH (06:48)
[2017-02-26] MEDS: HYDROCORTISONE 1% 28 GM CR TOP SCH ×2 (09:00→21:00)
[2017-02-26] MEDS: FUROSEMIDE 20 MG TAB PO SCH (09:00)
[2017-02-26] MEDS: MAGNESIUM HYDROXIDE 30ML CUP PO SCH (09:00)
[2017-02-26] MEDS: MAGNESIUM OXIDE 400 MG TAB PO SCH (09:00)
[2017-02-26] MEDS: ASPIRIN (EC) 81 MG TAB PO SCH (09:00)
[2017-02-26] MEDS: METOPROLOL 25 MG TAB PO SCH ×2 (09:00→21:00)
--- NOTE | 2017-02-26 13:24 | PN ---
Date/Time of Note Date/Time of Note DATE: 02/26/17 TIME: 13:20 Assessment/Plan VTE Prophylaxis VTE Prophylaxis Intervention: contraindicated Lines/Catheters IV Catheter Type (from Nrsg): No IV access Urinary Cath still in place: Yes Reason Cath still needed: urinary retention Assessment/Plan Chief Complaint/Hosp Course Assessment/Plan: 52-year-old male prior history of CAD with stent, sent from half-way facility prior history of bilateral lower extremity amputations presents with: 1. Chronic pain-somewhat improved symptoms now -Patient has bilateral upper and lower extremity limb amputation and has been residing at the [facility]. Patient was transferred to [facility] mainly for pain management. -Palliative care/pain management consult appreciated, follow-up with them and renal case manager regarding possible placement options for patient. 2. Bilateral upper and lower limb amputation-possibly secondary to "poisoning" in the past with possible subsequent skin infections leading to amputations, per patient. We are trying to get medical records from [facility] where the patient states the procedure was performed about 10 years ago to confirm this. -Supportive care 3. CAD with a history of stent -Continue cardiac meds 4. Likely history of systolic dysfunction: Echocardiogram showed ejection fraction of 25%,Mild concentric left ventricular hypertrophy. Severe enlargement of left ventricle cavity. Severe global left ventricular systolic dysfunction. And moderate aortic regurg. -Continue current medications 5. Anemia, likely secondary to chronic disease-last blood draw was on February 21 -FOBT is still pending, to evaluate for GI blood loss especially given patient has been on rivaroxaban (we are holding this medicine) 6. Mild hyponatremia -NS IVF Dispo: We are awaiting final decision on hospice placement options as inpatient for this patient. Again, [facility] hospice care team (the facility was caring for him before) and social work associate evaluated patient 2 days ago. delivery sales worker also trying to contact son of patient as well to help with decision making on this. Problems: Subjective 24 Hr Interval Summary Free Text/Dictation Patient complaining of some scalp facial itchiness. States he got amputations performed mainly at [facility] about 10 years ago because of "skin infection" from poisoning, possible gangrene formation as well. Exam/Review of Systems Vital Signs Vitals Vital Signs Date Time Temp Pulse Resp B/P Pulse Ox O2 Delivery O2 Flow Rate FiO2 02/25/17 19:53 97.7 99 18 110/68 02/24/17 09:30 95 Room Air 02/24/17 05:06 21 Intake and Output 02/25/17 02/25/17 02/26/17 15:00 23:00 07:00 Intake Total 960 ml 750 ml Output Total 800 ml 600 ml Balance 160 ml 150 ml Exam Constitutional: Lying in bed, no acute distress Head: atraumatic, normocephalic Eyes: PERRL Respiratory: clear to auscultation, normal air movement Cardiovascular: S1, S2 heard Gastrointestinal: soft Extremities: other (Bilateral upper and lower extremity amputations) Medications Medications Current Medications Acetaminophen/ Hydrocodone Bitart ([place] (5/325)) 1 tab Q4H PRN PO PAIN Last administered on 02/26/17 04:52; Admin Dose 1 TAB; Start 02/22/17 at 01:00 Ondansetron HCl (Zofran Tab) 4 mg Q6H PRN PO NAUSEA AND/OR VOMITING; Start at 01:00 Acetaminophen (Tylenol Tab) 650 mg Q6H PRN PO PAIN AND OR ELEVATED TEMP; Start 02/22/17 at 01:00 Amiodarone HCl (Cordarone) 200 mg BID PO Last administered on 02/25/17 09:18; Admin Dose 200 MG; Start 02/22/17 at 09:00 Aspirin (Halfprin) 81 mg DAILY PO Last administered on 02/25/17 09:18; Admin Dose 81 MG; Start 02/22/17 at 09:00 Docusate Sodium (Colace) 100 mg BID PO Last administered on 02/25/17 09:19; Admin Dose 100 MG; Start 02/22/17 at 09:00 Furosemide (Lasix) 20 mg DAILY PO Last administered on 02/25/17 09:18; Admin Dose 20 MG; Start 02/22/17 at 09:00 Magnesium Oxide (Mag-Ox 400) 400 mg DAILY PO ; Start 02/22/17 at 09:00 Metoprolol Tartrate (Lopressor) 12.5 mg BID PO Last administered on 02/22/17 18:34; Admin Dose 12.5 MG; Start 02/22/17 at 09:00 Magnesium Hydroxide (Milk Of Mag) 30 ml DAILY PO ; Start 02/23/17 at 09:00 Diphenhydramine HCl (Benadryl) 25 mg Q6H PRN PO ITCHING Last administered on t 21:21; Admin Dose 25 MG; Start 02/23/17 at 02:00 Hydrocortisone (Hydrocortisone 1% Cr) 1 applic BID TOP ; Start 02/24/17 at 21:00 LIZ MACKEY Feb 26, 2017 13:24
[2017-02-26] MEDS: AMIODARONE 200 MG TAB PO SCH ×2 (15:00→21:00)
[2017-02-26] MEDS: DOCUSATE SODIUM 100 MG CAP PO SCH ×2 (15:00→21:00)
[2017-02-26 17:06] VITALS: BP 115/71; RESP 18
[2017-02-26 19:58] VITALS: BP 107/72; RESP 18
[2017-02-26 20:30] VITALS: BP 158/70
[2017-02-26] MEDS: FLUOCINOLONE TOP SCH (21:00)
[2017-02-27] MEDS: DIPHENHYDRAMINE 25 MG CAP PO PRN (00:50)
[2017-02-27] MEDS: ALBUTEROL 0.083% (NEB) 2.5 MG/3 ML AMP NEB SCH ×6 (01:00→20:48)
[2017-02-27 02:15] VITALS: BP 113/84; RESP 20
[2017-02-27] MEDS: PANTOPRAZOLE (EC) 40 MG TAB PO SCH (07:30)
[2017-02-27] MEDS: ASPIRIN (EC) 81 MG TAB PO SCH (08:50)
[2017-02-27] MEDS: AMIODARONE 200 MG TAB PO SCH ×2 (08:51→21:00)
[2017-02-27] MEDS: FUROSEMIDE 20 MG TAB PO SCH (08:51)
[2017-02-27] MEDS: DOCUSATE SODIUM 100 MG CAP PO SCH ×2 (08:51→21:00)
[2017-02-27] MEDS: MAGNESIUM HYDROXIDE 30ML CUP PO SCH (08:56)
[2017-02-27] MEDS: MAGNESIUM OXIDE 400 MG TAB PO SCH (08:56)
[2017-02-27] MEDS: METOPROLOL 25 MG TAB PO SCH ×2 (08:56→21:00)
[2017-02-27] MEDS: HYDROCORTISONE 1% 28 GM CR TOP SCH ×2 (08:56→21:00)
[2017-02-27] MEDS: FLUOCINOLONE TOP SCH ×2 (09:45→21:00)
[2017-02-27] MEDS ORDERED: SELENIUM SULFIDE TOP SCH (10:00)
[2017-02-27 11:06] VITALS: BP 109/78; RESP 20
[2017-02-27 17:16] VITALS: BP 104/66; RESP 20
--- NOTE | 2017-02-27 18:24 | PN ---
Date/Time of Note Date/Time of Note DATE: 02/27/17 TIME: 18:21 Assessment/Plan VTE Prophylaxis VTE Prophylaxis Intervention: SCD's Lines/Catheters IV Catheter Type (from Nrsg): No IV access Urinary Cath still in place: Yes Reason Cath still needed: other (indicate) Assessment/Plan Assessment/Plan 52-year-old male with pmhx bl UE and LE amputations sent from [facility] for placement at new [facility] cont pain meds cont CV meds SW assisting with dispo rivaroxaban on hold for anemia, of note pt refusing all labs. FOBT was ordered ATC on hold hyponatremia: pt refusing labs to check on Na status Subjective 24 Hr Interval Summary Free Text/Dictation Awaiting new placement. Exam/Review of Systems Vital Signs Vitals Vital Signs Date Time Temp Pulse Resp B/P Pulse Ox O2 Delivery O2 Flow Rate FiO2 02/27/17 17:16 97.6 94 20 104/66 02/26/17 17:06 95 02/24/17 09:30 Room Air 02/24/17 05:06 21 Intake and Output 02/26/17 02/26/17 02/27/17 14:59 22:59 06:59 Intake Total 1100 ml 420 ml Output Total 700 ml 750 ml Balance 400 ml -330 ml Exam frustrated no mrg lungs clear abd soft all 4 stump sites c/d/i Medications Medications Current Medications Acetaminophen/ Hydrocodone Bitart ([place] (5/325)) 1 tab Q4H PRN PO PAIN Last administered on 02/26/17 04:52; Admin Dose 1 TAB; Start 02/22/17 at 01:00 Ondansetron HCl (Zofran Tab) 4 mg Q6H PRN PO NAUSEA AND/OR VOMITING; Start at 01:00 Acetaminophen (Tylenol Tab) 650 mg Q6H PRN PO PAIN AND OR ELEVATED TEMP; Start 02/22/17 at 01:00 Amiodarone HCl (Cordarone) 200 mg BID PO Last administered on 02/27/17 08:51; Admin Dose 200 MG; Start 02/22/17 at 09:00 Aspirin (Halfprin) 81 mg DAILY PO Last administered on 02/27/17 08:50; Admin Dose 81 MG; Start 02/22/17 at 09:00 Docusate Sodium (Colace) 100 mg BID PO Last administered on 02/27/17 08:51; Admin Dose 100 MG; Start 02/22/17 at 09:00 Furosemide (Lasix) 20 mg DAILY PO Last administered on 02/27/17 08:51; Admin Dose 20 MG; Start 02/22/17 at 09:00 Magnesium Oxide (Mag-Ox 400) 400 mg DAILY PO ; Start 02/22/17 at 09:00 Metoprolol Tartrate (Lopressor) 12.5 mg BID PO Last administered on 02/22/17 18:34; Admin Dose 12.5 MG; Start 02/22/17 at 09:00 Magnesium Hydroxide (Milk Of Mag) 30 ml DAILY PO ; Start 02/23/17 at 09:00 Diphenhydramine HCl (Benadryl) 25 mg Q6H PRN PO ITCHING Last administered on 00:50; Admin Dose 25 MG; Start 02/23/17 at 02:00 Hydrocortisone (Hydrocortisone 1% Cr) 1 applic BID TOP Last administered on 08:56; Admin Dose 1 APPLIC; Start 02/24/17 at 21:00 Fluocinolone Acetonide ([place] 0.01% Cr) 1 applic BID TOP Last administered on 02/27/17 09:45; Admin Dose 1 APPLIC; Start 02/26/17 at 21:00 CRISTIANO URBINA MD Feb 27, 2017 18:24
[2017-02-27 21:05] VITALS: BP 109/78; RESP 18
[2017-02-28] MEDS: DIPHENHYDRAMINE 25 MG CAP PO PRN (00:29)
[2017-02-28] MEDS: ALBUTEROL 0.083% (NEB) 2.5 MG/3 ML AMP NEB SCH ×6 (01:00→20:35)
[2017-02-28 02:24] VITALS: BP 108/73; RESP 18
[2017-02-28] MEDS: HYDROCODONE/APAP (5/325) TAB PO PRN (02:48)
[2017-02-28] MEDS: PANTOPRAZOLE (EC) 40 MG TAB PO SCH (06:31)
[2017-02-28 08:00] VITALS: BP 100/73; RESP 22
[2017-02-28] MEDS: AMIODARONE 200 MG TAB PO SCH ×2 (08:18→21:00)
[2017-02-28] MEDS: METOPROLOL 25 MG TAB PO SCH ×2 (08:18→21:00)
[2017-02-28] MEDS: MAGNESIUM OXIDE 400 MG TAB PO SCH (08:18)
[2017-02-28] MEDS: FUROSEMIDE 20 MG TAB PO SCH (08:18)
[2017-02-28] MEDS: DOCUSATE SODIUM 100 MG CAP PO SCH ×2 (08:18→21:00)
[2017-02-28] MEDS: ASPIRIN (EC) 81 MG TAB PO SCH (08:18)
[2017-02-28] MEDS: FLUOCINOLONE TOP SCH ×2 (08:19→22:10)
[2017-02-28] MEDS: MAGNESIUM HYDROXIDE 30ML CUP PO SCH (08:19)
[2017-02-28] MEDS: HYDROCORTISONE 1% 28 GM CR TOP SCH ×2 (08:19→22:10)
[2017-02-28 14:00] VITALS: BP 107/73; RESP 22
--- NOTE | 2017-02-28 14:25 | PN ---
Date/Time of Note Date/Time of Note DATE: 02/28/17 TIME: 14:24 Assessment/Plan VTE Prophylaxis VTE Prophylaxis Intervention: SCD's Lines/Catheters IV Catheter Type (from Nrsg): No IV access Urinary Cath still in place: Yes Reason Cath still needed: other (indicate) (RN request?) Assessment/Plan Assessment/Plan 52-year-old male with pmhx bl UE and LE amputations sent from [facility] for placement at new [facility] cont pain meds cont CV meds SW assisting with dispo rivaroxaban on hold for anemia, of note pt refusing all labs. FOBT was ordered ATC on hold hyponatremia: pt refusing labs to check on Na status Subjective 24 Hr Interval Summary Free Text/Dictation Pt sleeping when I saw him this AM, later shouting for MANAGER BABY Exam/Review of Systems Vital Signs Vitals Vital Signs Date Time Temp Pulse Resp B/P Pulse Ox O2 Delivery O2 Flow Rate FiO2 02/28/17 08:00 97.6 88 22 100/73 97 02/24/17 09:30 Room Air Intake and Output 02/27/17 02/27/17 02/28/17 15:00 23:00 07:00 Intake Total 440 ml Output Total 650 ml 700 ml Balance -650 ml -260 ml Exam nad resp nonlabored no abd distension no rashes stump sites c/d/i Medications Medications Current Medications Acetaminophen/ Hydrocodone Bitart ([place] (5/325)) 1 tab Q4H PRN PO PAIN Last administered on 02/28/17 02:48; Admin Dose 1 TAB; Start 02/22/17 at 01:00 Ondansetron HCl (Zofran Tab) 4 mg Q6H PRN PO NAUSEA AND/OR VOMITING; Start at 01:00 Acetaminophen (Tylenol Tab) 650 mg Q6H PRN PO PAIN AND OR ELEVATED TEMP; Start 02/22/17 at 01:00 Amiodarone HCl (Cordarone) 200 mg BID PO Last administered on 02/27/17 08:51; Admin Dose 200 MG; Start 02/22/17 at 09:00 Aspirin (Halfprin) 81 mg DAILY PO Last administered on 02/27/17 08:50; Admin Dose 81 MG; Start 02/22/17 at 09:00 Docusate Sodium (Colace) 100 mg BID PO Last administered on 02/27/17 08:51; Admin Dose 100 MG; Start 02/22/17 at 09:00 Furosemide (Lasix) 20 mg DAILY PO Last administered on 02/27/17 08:51; Admin Dose 20 MG; Start 02/22/17 at 09:00 Magnesium Oxide (Mag-Ox 400) 400 mg DAILY PO ; Start 02/22/17 at 09:00 Metoprolol Tartrate (Lopressor) 12.5 mg BID PO Last administered on 02/22/17 18:34; Admin Dose 12.5 MG; Start 02/22/17 at 09:00 Magnesium Hydroxide (Milk Of Mag) 30 ml DAILY PO ; Start 02/23/17 at 09:00 Diphenhydramine HCl (Benadryl) 25 mg Q6H PRN PO ITCHING Last administered on 00:29; Admin Dose 25 MG; Start 02/23/17 at 02:00 Hydrocortisone (Hydrocortisone 1% Cr) 1 applic BID TOP Last administered on 08:19; Admin Dose 1 APPLIC; Start 02/24/17 at 21:00 Fluocinolone Acetonide (Synalar 0.01% Cr) 1 applic BID TOP Last administered on 02/28/17 08:19; Admin Dose 1 APPLIC; Start 02/26/17 at 21:00 CRISTIANO URBINA MD Feb 28, 2017 14:25
[2017-02-28 20:16] VITALS: BP 107/77; RESP 18
[2017-03-01] MEDS: ALBUTEROL 0.083% (NEB) 2.5 MG/3 ML AMP NEB SCH ×5 (00:25→16:28)
[2017-03-01] MEDS: DIPHENHYDRAMINE 25 MG CAP PO PRN (00:44)
[2017-03-01 02:01] VITALS: BP 110/79; RESP 18
[2017-03-01] MEDS: HYDROCODONE/APAP (5/325) TAB PO PRN (04:57)
[2017-03-01] MEDS: PANTOPRAZOLE (EC) 40 MG TAB PO SCH (07:30)
[2017-03-01 08:32] VITALS: BP 115/81; RESP 20
[2017-03-01] MEDS: MAGNESIUM OXIDE 400 MG TAB PO SCH (09:00)
[2017-03-01] MEDS: HYDROCORTISONE 1% 28 GM CR TOP SCH ×2 (09:00→21:00)
[2017-03-01] MEDS: FLUOCINOLONE TOP SCH ×2 (09:00→21:00)
[2017-03-01] MEDS: METOPROLOL 25 MG TAB PO SCH ×2 (09:00→21:00)
[2017-03-01] MEDS: MAGNESIUM HYDROXIDE 30ML CUP PO SCH (09:00)
[2017-03-01] MEDS: AMIODARONE 200 MG TAB PO SCH ×2 (09:30→21:00)
[2017-03-01] MEDS: ASPIRIN (EC) 81 MG TAB PO SCH (09:30)
[2017-03-01] MEDS: DOCUSATE SODIUM 100 MG CAP PO SCH ×2 (09:30→21:00)
[2017-03-01] MEDS: FUROSEMIDE 20 MG TAB PO SCH (09:31)
--- NOTE | 2017-03-01 15:15 | PN ---
Date/Time of Note Date/Time of Note DATE: 03/01/17 TIME: 15:14 Assessment/Plan VTE Prophylaxis VTE Prophylaxis Intervention: SCD's Lines/Catheters IV Catheter Type (from Nrsg): No IV access Urinary Cath still in place: Yes Reason Cath still needed: other (indicate) (not indicated. pt refused dc) Assessment/Plan Assessment/Plan 52-year-old male with pmhx bl UE and LE amputations sent from [facility] for placement at new [facility] cont pain meds cont CV meds SW assisting with dispo rivaroxaban on hold for anemia, of note pt refusing all labs. FOBT negative ATC on hold hyponatremia: pt refusing labs to check on Na status Subjective 24 Hr Interval Summary Free Text/Dictation refused labs even after I discussed rationale with the patient Exam/Review of Systems Vital Signs Vitals Vital Signs Date Time Temp Pulse Resp B/P Pulse Ox O2 Delivery O2 Flow Rate FiO2 03/01/17 08:32 97.5 86 20 115/81 02/28/17 14:00 97 Intake and Output 02/28/17 02/28/17 03/01/17 14:59 22:59 06:59 Intake Total 1020 ml 490 ml Output Total 700 ml 700 ml Balance 320 ml -210 ml Exam nad no mrg lungs clear abd soft priest in place Medications Medications Current Medications Acetaminophen/ Hydrocodone Bitart ([place] (5/325)) 1 tab Q4H PRN PO PAIN Last administered on 03/01/17 04:57; Admin Dose 1 TAB; Start 02/22/17 at 01:00 Ondansetron HCl (Zofran Tab) 4 mg Q6H PRN PO NAUSEA AND/OR VOMITING; Start at 01:00 Acetaminophen (Tylenol Tab) 650 mg Q6H PRN PO PAIN AND OR ELEVATED TEMP; Start 02/22/17 at 01:00 Amiodarone HCl (Cordarone) 200 mg BID PO Last administered on 03/01/17 09:30; Admin Dose 200 MG; Start 02/22/17 at 09:00 Aspirin (Halfprin) 81 mg DAILY PO Last administered on 03/01/17 09:30; Admin Dose 81 MG; Start 02/22/17 at 09:00 Docusate Sodium (Colace) 100 mg BID PO Last administered on 03/01/17 09:30; Admin Dose 100 MG; Start 02/22/17 at 09:00 Furosemide (Lasix) 20 mg DAILY PO Last administered on 03/01/17 09:31; Admin Dose 20 MG; Start 02/22/17 at 09:00 Magnesium Oxide (Mag-Ox 400) 400 mg DAILY PO ; Start 02/22/17 at 09:00 Metoprolol Tartrate (Lopressor) 12.5 mg BID PO Last administered on 02/22/17 18:34; Admin Dose 12.5 MG; Start 02/22/17 at 09:00 Magnesium Hydroxide (Milk Of Mag) 30 ml DAILY PO ; Start 02/23/17 at 09:00 Diphenhydramine HCl (Benadryl) 25 mg Q6H PRN PO ITCHING Last administered on 00:44; Admin Dose 25 MG; Start 02/23/17 at 02:00 Hydrocortisone (Hydrocortisone 1% Cr) 1 applic BID TOP Last administered on 22:10; Admin Dose 1 APPLIC; Start 02/24/17 at 21:00 Fluocinolone Acetonide (Synalar 0.01% Cr) 1 applic BID TOP Last administered on 02/28/17 22:10; Admin Dose 1 APPLIC; Start 02/26/17 at 21:00 CRISTIANO URBINA MD Mar 01, 2017 15:15
[2017-03-01 17:08] VITALS: BP 101/71; RESP 22
[2017-03-01] MEDS: ONDANSETRON 4 MG TAB PO PRN (19:07)
[2017-03-01] MEDS ORDERED: ALBUTEROL 0.083% (NEB) 2.5 MG/3 ML AMP NEB PRN (19:30)
[2017-03-01 20:00] VITALS: BP 112/78; RESP 18
[2017-03-02 02:00] VITALS: BP 128/97; RESP 19
[2017-03-02] MEDS: DIPHENHYDRAMINE 25 MG CAP PO PRN ×2 (02:07→21:49)
[2017-03-02] MEDS: HYDROCODONE/APAP (5/325) TAB PO PRN (05:56)
[2017-03-02] MEDS: PANTOPRAZOLE (EC) 40 MG TAB PO SCH (07:30)
[2017-03-02] MEDS: METOPROLOL 25 MG TAB PO SCH ×2 (09:00→21:00)
[2017-03-02] MEDS: FLUOCINOLONE TOP SCH ×2 (09:00→21:49)
[2017-03-02] MEDS: HYDROCORTISONE 1% 28 GM CR TOP SCH ×2 (09:00→21:49)
[2017-03-02] MEDS: AMIODARONE 200 MG TAB PO SCH ×2 (09:00→21:00)
[2017-03-02] MEDS: MAGNESIUM OXIDE 400 MG TAB PO SCH (09:00)
[2017-03-02] MEDS: MAGNESIUM HYDROXIDE 30ML CUP PO SCH (09:00)
[2017-03-02] MEDS: ASPIRIN (EC) 81 MG TAB PO SCH (10:03)
[2017-03-02] MEDS: DOCUSATE SODIUM 100 MG CAP PO SCH ×2 (10:03→21:00)
[2017-03-02] MEDS: FUROSEMIDE 20 MG TAB PO SCH (10:09)
--- NOTE | 2017-03-02 12:38 | PN ---
Date/Time of Note Date/Time of Note DATE: 03/02/17 TIME: 12:37 Assessment/Plan VTE Prophylaxis VTE Prophylaxis Intervention: SCD's Lines/Catheters IV Catheter Type (from Nrsg): No IV access Urinary Cath still in place: Yes Reason Cath still needed: other (indicate) (pt refuses removal. NOT NEEDED) Assessment/Plan Assessment/Plan 52-year-old male with pmhx bl UE and LE amputations sent from [facility] for placement at new [facility] cont pain meds cont CV meds SW assisting with dispo rivaroxaban on hold for anemia, of note pt refusing all labs. FOBT negative ATC on hold hyponatremia: pt refusing labs to check on Na status Subjective 24 Hr Interval Summary Free Text/Dictation Sleeping Exam/Review of Systems Vital Signs Vitals Vital Signs Date Time Temp Pulse Resp B/P Pulse Ox O2 Delivery O2 Flow Rate FiO2 03/02/17 02:00 97.5 95 19 128/97 03/01/17 17:08 94 Intake and Output 03/01/17 03/01/17 03/02/17 15:00 23:00 07:00 Intake Total 1020 ml 850 ml Output Total 880 ml 400 ml Balance 140 ml 450 ml Exam sleeping resp nonlabored no gross abd distension no rashes no edema Medications Medications Current Medications Acetaminophen/ Hydrocodone Bitart ([place] (5/325)) 1 tab Q4H PRN PO PAIN Last administered on 03/02/17 05:56; Admin Dose 1 TAB; Start 02/22/17 at 01:00 Ondansetron HCl (Zofran Tab) 4 mg Q6H PRN PO NAUSEA AND/OR VOMITING Last administered on 03/01/17 19:07; Admin Dose 4 MG; Start 02/22/17 at 01:00 Acetaminophen (Tylenol Tab) 650 mg Q6H PRN PO PAIN AND OR ELEVATED TEMP; Start 02/22/17 at 01:00 Amiodarone HCl (Cordarone) 200 mg BID PO Last administered on 03/01/17 09:30; Admin Dose 200 MG; Start 02/22/17 at 09:00 Aspirin (Halfprin) 81 mg DAILY PO Last administered on 03/02/17 10:03; Admin Dose 81 MG; Start 02/22/17 at 09:00 Docusate Sodium (Colace) 100 mg BID PO Last administered on 03/02/17 10:03; Admin Dose 100 MG; Start 02/22/17 at 09:00 Furosemide (Lasix) 20 mg DAILY PO Last administered on 03/02/17 10:09; Admin Dose 20 MG; Start 02/22/17 at 09:00 Magnesium Oxide (Mag-Ox 400) 400 mg DAILY PO ; Start 02/22/17 at 09:00 Metoprolol Tartrate (Lopressor) 12.5 mg BID PO Last administered on 02/22/17 18:34; Admin Dose 12.5 MG; Start 02/22/17 at 09:00 Magnesium Hydroxide (Milk Of Mag) 30 ml DAILY PO ; Start 02/23/17 at 09:00 Diphenhydramine HCl (Benadryl) 25 mg Q6H PRN PO ITCHING Last administered on 02:07; Admin Dose 25 MG; Start 02/23/17 at 02:00 Hydrocortisone (Hydrocortisone 1% Cr) 1 applic BID TOP Last administered on 22:10; Admin Dose 1 APPLIC; Start 02/24/17 at 21:00 Fluocinolone Acetonide (Synalar 0.01% Cr) 1 applic BID TOP Last administered on 02/28/17 22:10; Admin Dose 1 APPLIC; Start 02/26/17 at 21:00 CRISTIANO URBINA MD Mar 02, 2017 12:37
[2017-03-02] MEDS: ONDANSETRON 4 MG TAB PO PRN (15:14)
[2017-03-02 19:55] VITALS: BP 116/75; RESP 18
[2017-03-03 02:20] VITALS: BP 117/77; RESP 18
[2017-03-03] MEDS: PANTOPRAZOLE (EC) 40 MG TAB PO SCH (07:30)
[2017-03-03] MEDS: AMIODARONE 200 MG TAB PO SCH ×2 (09:00→21:00)
[2017-03-03] MEDS: FLUOCINOLONE TOP SCH ×2 (09:00→21:00)
[2017-03-03] MEDS: METOPROLOL 25 MG TAB PO SCH ×2 (09:00→21:00)
[2017-03-03] MEDS: DOCUSATE SODIUM 100 MG CAP PO SCH ×2 (09:00→21:00)
[2017-03-03] MEDS: FUROSEMIDE 20 MG TAB PO SCH (09:00)
[2017-03-03] MEDS: MAGNESIUM HYDROXIDE 30ML CUP PO SCH (09:00)
[2017-03-03] MEDS: MAGNESIUM OXIDE 400 MG TAB PO SCH (09:00)
[2017-03-03] MEDS: HYDROCORTISONE 1% 28 GM CR TOP SCH ×2 (09:00→21:00)
[2017-03-03] MEDS: ASPIRIN (EC) 81 MG TAB PO SCH (09:00)
[2017-03-03] MEDS: HYDROCODONE/APAP (5/325) TAB PO PRN (10:04)
--- NOTE | 2017-03-03 17:19 | PN ---
Date/Time of Note Date/Time of Note DATE: 03/03/17 TIME: 17:18 Assessment/Plan VTE Prophylaxis VTE Prophylaxis Intervention: SCD's Lines/Catheters IV Catheter Type (from Nrsg): No IV access Urinary Cath still in place: Yes Reason Cath still needed: other (indicate) (pt refusal) Assessment/Plan Assessment/Plan 52-year-old male with pmhx bl UE and LE amputations sent from [facility] for placement at new [facility] cont pain meds cont CV meds SW assisting with dispo rivaroxaban on hold for anemia, of note pt refusing all labs. FOBT negative ATC on hold hyponatremia: pt refusing labs to check on Na status Subjective 24 Hr Interval Summary Free Text/Dictation Sleeping Exam/Review of Systems Vital Signs Vitals Vital Signs Date Time Temp Pulse Resp B/P Pulse Ox O2 Delivery O2 Flow Rate FiO2 03/03/17 02:20 97.5 95 18 117/77 03/01/17 17:08 94 Intake and Output 03/02/17 03/02/17 03/03/17 14:59 22:59 06:59 Intake Total 480 ml 960 ml Output Total 500 ml 600 ml Balance -20 ml 360 ml Exam nad resp nonlabored no abd distension no edema no rashes Medications Medications Current Medications Acetaminophen/ Hydrocodone Bitart ([place] (5/325)) 1 tab Q4H PRN PO PAIN Last administered on 03/03/17 10:04; Admin Dose 1 TAB; Start 02/22/17 at 01:00 Ondansetron HCl (Zofran Tab) 4 mg Q6H PRN PO NAUSEA AND/OR VOMITING Last administered on 03/02/17 15:14; Admin Dose 4 MG; Start 02/22/17 at 01:00 Acetaminophen (Tylenol Tab) 650 mg Q6H PRN PO PAIN AND OR ELEVATED TEMP; Start 02/22/17 at 01:00 Amiodarone HCl (Cordarone) 200 mg BID PO Last administered on 03/01/17 09:30; Admin Dose 200 MG; Start 02/22/17 at 09:00 Aspirin (Halfprin) 81 mg DAILY PO Last administered on 03/02/17 10:03; Admin Dose 81 MG; Start 02/22/17 at 09:00 Docusate Sodium (Colace) 100 mg BID PO Last administered on 03/02/17 10:03; Admin Dose 100 MG; Start 02/22/17 at 09:00 Furosemide (Lasix) 20 mg DAILY PO Last administered on 03/02/17 10:09; Admin Dose 20 MG; Start 02/22/17 at 09:00 Magnesium Oxide (Mag-Ox 400) 400 mg DAILY PO ; Start 02/22/17 at 09:00 Metoprolol Tartrate (Lopressor) 12.5 mg BID PO Last administered on 02/22/17 18:34; Admin Dose 12.5 MG; Start 02/22/17 at 09:00 Magnesium Hydroxide (Milk Of Mag) 30 ml DAILY PO ; Start 02/23/17 at 09:00 Diphenhydramine HCl (Benadryl) 25 mg Q6H PRN PO ITCHING Last administered on 21:49; Admin Dose 25 MG; Start 02/23/17 at 02:00 Hydrocortisone (Hydrocortisone 1% Cr) 1 applic BID TOP Last administered on 21:49; Admin Dose 1 APPLIC; Start 02/24/17 at 21:00 Fluocinolone Acetonide (Synalar 0.01% Cr) 1 applic BID TOP Last administered on 03/02/17 21:49; Admin Dose 1 APPLIC; Start 02/26/17 at 21:00 CRISTIANO URBINA MD Mar 03, 2017 17:18
[2017-03-03] MEDS: ONDANSETRON 4 MG TAB PO PRN (17:32)
[2017-03-03] MEDS: DIPHENHYDRAMINE 25 MG CAP PO PRN (23:10)
[2017-03-04 02:00] VITALS: BP 118/67; RESP 20
[2017-03-04] MEDS: HYDROCODONE/APAP (5/325) TAB PO PRN ×2 (02:04→17:05)
[2017-03-04] MEDS: PANTOPRAZOLE (EC) 40 MG TAB PO SCH (07:14)
[2017-03-04] MEDS: FLUOCINOLONE TOP SCH ×2 (09:00→21:00)
[2017-03-04] MEDS: MAGNESIUM OXIDE 400 MG TAB PO SCH (09:00)
[2017-03-04] MEDS: MAGNESIUM HYDROXIDE 30ML CUP PO SCH (09:00)
[2017-03-04] MEDS: METOPROLOL 25 MG TAB PO SCH ×2 (09:00→21:00)
[2017-03-04] MEDS: HYDROCORTISONE 1% 28 GM CR TOP SCH ×2 (09:00→21:00)
[2017-03-04] MEDS: AMIODARONE 200 MG TAB PO SCH ×2 (09:00→21:00)
[2017-03-04] MEDS: DOCUSATE SODIUM 100 MG CAP PO SCH ×2 (11:02→21:00)
[2017-03-04] MEDS: ASPIRIN (EC) 81 MG TAB PO SCH (11:02)
[2017-03-04] MEDS: FUROSEMIDE 20 MG TAB PO SCH (11:02)
--- NOTE | 2017-03-04 15:51 | PN ---
Date/Time of Note Date/Time of Note DATE: 03/04/17 TIME: 15:50 Assessment/Plan VTE Prophylaxis VTE Prophylaxis Intervention: SCD's Lines/Catheters IV Catheter Type (from Nrsg): No IV access Urinary Cath still in place: Yes Reason Cath still needed: other (indicate) (not needed) Assessment/Plan Assessment/Plan 52-year-old male with pmhx bl UE and LE amputations sent from [facility] for placement at new [facility] cont pain meds cont CV meds SW assisting with dispo rivaroxaban on hold for anemia, of note pt refusing all labs. FOBT negative ATC on hold hyponatremia: pt refusing labs to check on Na status Subjective 24 Hr Interval Summary Free Text/Dictation Sleeping this AM Exam/Review of Systems Vital Signs Vitals Vital Signs Date Time Temp Pulse Resp B/P Pulse Ox O2 Delivery O2 Flow Rate FiO2 03/04/17 02:00 98.2 20 118/67 Room Air 03/03/17 02:20 95 03/01/17 17:08 94 Intake and Output 03/03/17 03/03/17 03/04/17 15:00 23:00 07:00 Intake Total 700 ml 720 ml Output Total 750 ml 800 ml Balance -50 ml -80 ml Exam nad resp nonlabored no abd distension no rashes priest in place Medications Medications Current Medications Acetaminophen/ Hydrocodone Bitart ([place] (5/325)) 1 tab Q4H PRN PO PAIN Last administered on 03/04/17 02:04; Admin Dose 1 TAB; Start 02/22/17 at 01:00 Ondansetron HCl (Zofran Tab) 4 mg Q6H PRN PO NAUSEA AND/OR VOMITING Last administered on 03/03/17 17:32; Admin Dose 4 MG; Start 02/22/17 at 01:00 Acetaminophen (Tylenol Tab) 650 mg Q6H PRN PO PAIN AND OR ELEVATED TEMP; Start 02/22/17 at 01:00 Amiodarone HCl (Cordarone) 200 mg BID PO Last administered on 03/01/17 09:30; Admin Dose 200 MG; Start 02/22/17 at 09:00 Aspirin (Halfprin) 81 mg DAILY PO Last administered on 03/04/17 11:02; Admin Dose 81 MG; Start 02/22/17 at 09:00 Docusate Sodium (Colace) 100 mg BID PO Last administered on 03/04/17 11:02; Admin Dose 100 MG; Start 02/22/17 at 09:00 Furosemide (Lasix) 20 mg DAILY PO Last administered on 03/04/17 11:02; Admin Dose 20 MG; Start 02/22/17 at 09:00 Magnesium Oxide (Mag-Ox 400) 400 mg DAILY PO ; Start 02/22/17 at 09:00 Metoprolol Tartrate (Lopressor) 12.5 mg BID PO Last administered on 02/22/17 18:34; Admin Dose 12.5 MG; Start 02/22/17 at 09:00 Magnesium Hydroxide (Milk Of Mag) 30 ml DAILY PO ; Start 02/23/17 at 09:00 Diphenhydramine HCl (Benadryl) 25 mg Q6H PRN PO ITCHING Last administered on 23:10; Admin Dose 25 MG; Start 02/23/17 at 02:00 Hydrocortisone (Hydrocortisone 1% Cr) 1 applic BID TOP Last administered on 21:49; Admin Dose 1 APPLIC; Start 02/24/17 at 21:00 Fluocinolone Acetonide (Synalar 0.01% Cr) 1 applic BID TOP Last administered on 03/02/17 21:49; Admin Dose 1 APPLIC; Start 02/26/17 at 21:00 CRISTIANO URBINA MD Mar 04, 2017 15:51
[2017-03-04] MEDS: DIPHENHYDRAMINE 25 MG CAP PO PRN (18:45)
[2017-03-04 20:00] VITALS: BP 107/65; RESP 20
[2017-03-05 02:00] VITALS: BP 110/72; RESP 20
[2017-03-05] MEDS: PANTOPRAZOLE (EC) 40 MG TAB PO SCH (07:30)
[2017-03-05 09:00] VITALS: BP 106/62; RESP 18
[2017-03-05] MEDS: MAGNESIUM HYDROXIDE 30ML CUP PO SCH (09:00)
[2017-03-05] MEDS: METOPROLOL 25 MG TAB PO SCH ×2 (09:00→20:38)
[2017-03-05] MEDS: DOCUSATE SODIUM 100 MG CAP PO SCH ×2 (09:00→20:37)
[2017-03-05] MEDS: MAGNESIUM OXIDE 400 MG TAB PO SCH (09:00)
[2017-03-05] MEDS: FUROSEMIDE 20 MG TAB PO SCH (09:00)
[2017-03-05] MEDS: HYDROCORTISONE 1% 28 GM CR TOP SCH ×2 (09:00→20:38)
[2017-03-05] MEDS: FLUOCINOLONE TOP SCH ×2 (09:00→20:38)
[2017-03-05] MEDS: ASPIRIN (EC) 81 MG TAB PO SCH (09:00)
[2017-03-05] MEDS: AMIODARONE 200 MG TAB PO SCH ×2 (09:00→20:38)
--- NOTE | 2017-03-05 12:54 | PN ---
Date/Time of Note Date/Time of Note DATE: 03/05/17 TIME: 12:53 Assessment/Plan VTE Prophylaxis VTE Prophylaxis Intervention: SCD's Lines/Catheters IV Catheter Type (from Nrsg): No IV access Urinary Cath still in place: Yes Reason Cath still needed: other (indicate) (pt refusal) Assessment/Plan Assessment/Plan 52-year-old male with pmhx bl UE and LE amputations sent from [facility] for placement at new [facility] cont pain meds cont CV meds SW assisting with dispo rivaroxaban on hold for anemia, of note pt refusing all labs. FOBT negative ATC on hold hyponatremia: pt refusing labs to check on Na status Subjective 24 Hr Interval Summary Free Text/Dictation sleeping Exam/Review of Systems Vital Signs Vitals Vital Signs Date Time Temp Pulse Resp B/P Pulse Ox O2 Delivery O2 Flow Rate FiO2 03/05/17 09:00 98.2 87 18 106/62 03/04/17 02:00 Room Air 03/01/17 17:08 94 Intake and Output 03/04/17 03/04/17 03/05/17 15:00 23:00 07:00 Intake Total 1080 ml 360 ml Output Total 1050 ml 1000 ml Balance 30 ml -640 ml Exam asleep resp nonlabored abd nondistended priest in no rashes Medications Medications Current Medications Acetaminophen/ Hydrocodone Bitart ([place] (5/325)) 1 tab Q4H PRN PO PAIN Last administered on 03/04/17 17:05; Admin Dose 1 TAB; Start 02/22/17 at 01:00 Ondansetron HCl (Zofran Tab) 4 mg Q6H PRN PO NAUSEA AND/OR VOMITING Last administered on 03/03/17 17:32; Admin Dose 4 MG; Start 02/22/17 at 01:00 Acetaminophen (Tylenol Tab) 650 mg Q6H PRN PO PAIN AND OR ELEVATED TEMP; Start 02/22/17 at 01:00 Amiodarone HCl (Cordarone) 200 mg BID PO Last administered on 03/01/17 09:30; Admin Dose 200 MG; Start 02/22/17 at 09:00 Aspirin (Halfprin) 81 mg DAILY PO Last administered on 03/04/17 11:02; Admin Dose 81 MG; Start 02/22/17 at 09:00 Docusate Sodium (Colace) 100 mg BID PO Last administered on 03/04/17 11:02; Admin Dose 100 MG; Start 02/22/17 at 09:00 Furosemide (Lasix) 20 mg DAILY PO Last administered on 03/04/17 11:02; Admin Dose 20 MG; Start 02/22/17 at 09:00 Magnesium Oxide (Mag-Ox 400) 400 mg DAILY PO ; Start 02/22/17 at 09:00 Metoprolol Tartrate (Lopressor) 12.5 mg BID PO Last administered on 02/22/17 18:34; Admin Dose 12.5 MG; Start 02/22/17 at 09:00 Magnesium Hydroxide (Milk Of Mag) 30 ml DAILY PO ; Start 02/23/17 at 09:00 Diphenhydramine HCl (Benadryl) 25 mg Q6H PRN PO ITCHING Last administered on 18:45; Admin Dose 25 MG; Start 02/23/17 at 02:00 Hydrocortisone (Hydrocortisone 1% Cr) 1 applic BID TOP Last administered on 21:49; Admin Dose 1 APPLIC; Start 02/24/17 at 21:00 Fluocinolone Acetonide (Synalar 0.01% Cr) 1 applic BID TOP Last administered on 03/02/17 21:49; Admin Dose 1 APPLIC; Start 02/26/17 at 21:00 CRISTIANO URBINA MD Mar 05, 2017 12:54
[2017-03-05 14:15] VITALS: BP 99/57; RESP 18
[2017-03-05 20:00] VITALS: BP 108/59; RESP 20
[2017-03-05] MEDS: HYDROCODONE/APAP (5/325) TAB PO PRN (20:36)
[2017-03-05] MEDS: DIPHENHYDRAMINE 25 MG CAP PO PRN (23:36)
[2017-03-06 02:00] VITALS: BP 82/52; RESP 19
[2017-03-06 02:05] VITALS: BP 81/50; RESP 19
[2017-03-06] MEDS: PANTOPRAZOLE (EC) 40 MG TAB PO SCH (07:30)
[2017-03-06] MEDS: DOCUSATE SODIUM 100 MG CAP PO SCH ×3 (08:33→21:00)
[2017-03-06] MEDS: FUROSEMIDE 20 MG TAB PO SCH (08:33)
[2017-03-06] MEDS: AMIODARONE 200 MG TAB PO SCH ×2 (08:33→21:00)
[2017-03-06] MEDS: ASPIRIN (EC) 81 MG TAB PO SCH ×2 (08:33→12:05)
[2017-03-06] MEDS: HYDROCORTISONE 1% 28 GM CR TOP SCH ×2 (08:34→21:00)
[2017-03-06] MEDS: MAGNESIUM HYDROXIDE 30ML CUP PO SCH (08:34)
[2017-03-06] MEDS: FLUOCINOLONE TOP SCH ×2 (08:34→21:00)
[2017-03-06] MEDS: METOPROLOL 25 MG TAB PO SCH ×2 (08:34→21:00)
[2017-03-06] MEDS: MAGNESIUM OXIDE 400 MG TAB PO SCH (08:34)
[2017-03-06] MEDS: HYDROCODONE/APAP (5/325) TAB PO PRN (12:05)
[2017-03-06] MEDS: DIPHENHYDRAMINE 25 MG CAP PO PRN (12:08)
[2017-03-06 14:19] VITALS: BP 103/64; RESP 18
--- NOTE | 2017-03-06 15:53 | PN ---
Date/Time of Note Date/Time of Note DATE: 03/06/17 TIME: 15:43 Assessment/Plan VTE Prophylaxis VTE Prophylaxis Intervention: contraindicated Lines/Catheters IV Catheter Type (from Nrsg): No IV access Urinary Cath still in place: Yes Reason Cath still needed: urinary retention Assessment/Plan Chief Complaint/Hosp Course Assessment/Plan: 52-year-old male prior history of CAD with stent, sent from [facility] facility prior history of bilateral lower extremity amputations presents with: 1. Chronic pain-somewhat improved symptoms now -Patient has bilateral upper and lower extremity limb amputation and has been residing at the [facility]. Patient was transferred to [facility] mainly for pain management. -Palliative care/pain management consult appreciated, follow-up with them and case maker regarding possible placement options for patient. 2. Bilateral upper and lower limb amputation-possibly secondary to "poisoning" in the past with possible subsequent skin infections leading to amputations, per patient, at [facility] where the patient states the procedure was performed about 10 years ago -Supportive care 3. CAD with a history of stent -Continue cardiac meds 4. Likely history of systolic dysfunction: Echocardiogram showed ejection fraction of 25%,Mild concentric left ventricular hypertrophy. Severe enlargement of left ventricle cavity. Severe global left ventricular systolic dysfunction. And moderate aortic regurg. -Continue current medications 5. Anemia, likely secondary to chronic disease-last blood draw was on February 21 -FOBT is still pending, to evaluate for GI blood loss especially given patient has been on rivaroxaban (we are holding this medicine) 6. Mild hyponatremia-apparently patient refusing labs to further evaluate this , patient is asymptomatic -Monitor for now Dispo: We are awaiting final decision on hospice placement options as inpatient for this patient. Will follow up with case maker on this. Problems: Subjective 24 Hr Interval Summary Free Text/Dictation Patient still with generalized complaints. Exam/Review of Systems Vital Signs Vitals Vital Signs Date Time Temp Pulse Resp B/P Pulse Ox O2 Delivery O2 Flow Rate FiO2 03/06/17 14:19 98.1 88 18 103/64 03/04/17 02:00 Room Air Intake and Output 03/05/17 03/05/17 03/06/17 15:00 23:00 07:00 Intake Total 1620 ml 680 ml Output Total 1050 ml 1200 ml Balance 570 ml -520 ml Exam Lying in bed, asking for the nurse S1, S2 heard resp nonlabored abd nondistended priest in no rashes Medications Medications Current Medications Acetaminophen/ Hydrocodone Bitart ([place] (5/325)) 1 tab Q4H PRN PO PAIN Last administered on 03/06/17 12:05; Admin Dose 1 TAB; Start 02/22/17 at 01:00 Ondansetron HCl (Zofran Tab) 4 mg Q6H PRN PO NAUSEA AND/OR VOMITING Last administered on 03/03/17 17:32; Admin Dose 4 MG; Start 02/22/17 at 01:00 Acetaminophen (Tylenol Tab) 650 mg Q6H PRN PO PAIN AND OR ELEVATED TEMP; Start 02/22/17 at 01:00 Amiodarone HCl (Cordarone) 200 mg BID PO Last administered on 03/01/17 09:30; Admin Dose 200 MG; Start 02/22/17 at 09:00 Aspirin (Halfprin) 81 mg DAILY PO Last administered on 03/06/17 12:05; Admin Dose 81 MG; Start 02/22/17 at 09:00 Docusate Sodium (Colace) 100 mg BID PO Last administered on 03/06/17 12:05; Admin Dose 100 MG; Start 02/22/17 at 09:00 Furosemide (Lasix) 20 mg DAILY PO Last administered on 03/04/17 11:02; Admin Dose 20 MG; Start 02/22/17 at 09:00 Magnesium Oxide (Mag-Ox 400) 400 mg DAILY PO ; Start 02/22/17 at 09:00 Metoprolol Tartrate (Lopressor) 12.5 mg BID PO Last administered on 02/22/17 18:34; Admin Dose 12.5 MG; Start 02/22/17 at 09:00 Magnesium Hydroxide (Milk Of Mag) 30 ml DAILY PO ; Start 02/23/17 at 09:00 Diphenhydramine HCl (Benadryl) 25 mg Q6H PRN PO ITCHING Last administered on 12:08; Admin Dose 25 MG; Start 02/23/17 at 02:00 Hydrocortisone (Hydrocortisone 1% Cr) 1 applic BID TOP Last administered on 21:49; Admin Dose 1 APPLIC; Start 02/24/17 at 21:00 Fluocinolone Acetonide (Synalar 0.01% Cr) 1 applic BID TOP Last administered on 03/02/17t 21:49; Admin Dose 1 APPLIC; Start 02/26/17 at 21:00 LIZ MACKEY Mar 06, 2017 15:53
[2017-03-06 19:48] VITALS: BP 103/71; RESP 18
[2017-03-07] MEDS: HYDROCODONE/APAP (5/325) TAB PO PRN ×2 (00:53→23:46)
[2017-03-07 02:18] VITALS: BP 110/62; RESP 20
[2017-03-07] MEDS: PANTOPRAZOLE (EC) 40 MG TAB PO SCH (07:30)
[2017-03-07] MEDS: MAGNESIUM OXIDE 400 MG TAB PO SCH (09:00)
[2017-03-07] MEDS: ASPIRIN (EC) 81 MG TAB PO SCH (09:00)
[2017-03-07] MEDS: FLUOCINOLONE TOP SCH ×2 (09:00→23:50)
[2017-03-07] MEDS: MAGNESIUM HYDROXIDE 30ML CUP PO SCH (09:00)
[2017-03-07] MEDS: AMIODARONE 200 MG TAB PO SCH ×2 (09:00→21:00)
[2017-03-07] MEDS: HYDROCORTISONE 1% 28 GM CR TOP SCH ×3 (09:00→23:51)
[2017-03-07] MEDS: FUROSEMIDE 20 MG TAB PO SCH (09:00)
[2017-03-07] MEDS: DOCUSATE SODIUM 100 MG CAP PO SCH ×2 (09:00→21:00)
[2017-03-07] MEDS: METOPROLOL 25 MG TAB PO SCH ×2 (09:00→21:00)
--- NOTE | 2017-03-07 15:57 | PN ---
Date/Time of Note Date/Time of Note DATE: 03/07/17 TIME: 15:54 Assessment/Plan VTE Prophylaxis VTE Prophylaxis Intervention: contraindicated Lines/Catheters IV Catheter Type (from Nrsg): No IV access Urinary Cath still in place: Yes Reason Cath still needed: urinary retention Assessment/Plan Chief Complaint/Hosp Course Assessment/Plan: 52-year-old male prior history of CAD with stent, sent from assisted facility prior history of bilateral lower extremity amputations presents with: 1. Chronic pain-somewhat improved symptoms now -Patient has bilateral upper and lower extremity limb amputation and has been residing at the [facility]. Patient was transferred to [facility] mainly for pain management. -Palliative care/pain management consult appreciated, follow-up with them and rn field case manager regarding possible placement options for patient. 2. Bilateral upper and lower limb amputation-possibly secondary to "poisoning" in the past with possible subsequent skin infections leading to amputations, per patient, at [facility] where the patient states the procedure was performed about 10 years ago -Supportive care 3. CAD with a history of stent -Continue cardiac meds 4. Likely history of systolic dysfunction: Echocardiogram showed ejection fraction of 25%,Mild concentric left ventricular hypertrophy. Severe enlargement of left ventricle cavity. Severe global left ventricular systolic dysfunction. And moderate aortic regurg. -Continue current medications 5. Anemia, likely secondary to chronic disease-last blood draw was on February 21 -FOBT is still pending, to evaluate for GI blood loss especially given patient has been on rivaroxaban (we are holding this medicine) 6. Mild hyponatremia-apparently patient refusing labs to further evaluate this , patient is asymptomatic -Monitor for now Dispo: Awaiting final decision on hospice placement options as inpatient for this patient. Will follow up with rn field case manager on this. Problems: Subjective 24 Hr Interval Summary Free Text/Dictation Patient still being quite demanding and yelling out at times. Otherwise no acute events overnight Exam/Review of Systems Vital Signs Vitals Vital Signs Date Time Temp Pulse Resp B/P Pulse Ox O2 Delivery O2 Flow Rate FiO2 03/07/17 02:18 98.4 94 20 110/62 03/04/17 02:00 Room Air Intake and Output 03/06/17 03/06/17 03/07/17 15:00 23:00 07:00 Intake Total 360 ml Output Total 900 ml Balance -540 ml Exam Lying in bed, asking for the nurse S1, S2 heard resp nonlabored abd nondistended priest in no rashes Medications Medications Current Medications Acetaminophen/ Hydrocodone Bitart ([place] (5/325)) 1 tab Q4H PRN PO PAIN Last administered on 03/07/17 00:53; Admin Dose 1 TAB; Start 02/22/17 at 01:00 Ondansetron HCl (Zofran Tab) 4 mg Q6H PRN PO NAUSEA AND/OR VOMITING Last administered on 03/03/17 17:32; Admin Dose 4 MG; Start 02/22/17 at 01:00 Acetaminophen (Tylenol Tab) 650 mg Q6H PRN PO PAIN AND OR ELEVATED TEMP; Start 02/22/17 at 01:00 Amiodarone HCl (Cordarone) 200 mg BID PO Last administered on 03/01/17 09:30; Admin Dose 200 MG; Start 02/22/17 at 09:00 Aspirin (Halfprin) 81 mg DAILY PO Last administered on 03/06/17 12:05; Admin Dose 81 MG; Start 02/22/17 at 09:00 Docusate Sodium (Colace) 100 mg BID PO Last administered on 03/06/17 12:05; Admin Dose 100 MG; Start 02/22/17 at 09:00 Furosemide (Lasix) 20 mg DAILY PO Last administered on 03/04/17 11:02; Admin Dose 20 MG; Start 02/22/17 at 09:00 Magnesium Oxide (Mag-Ox 400) 400 mg DAILY PO ; Start 02/22/17 at 09:00 Metoprolol Tartrate (Lopressor) 12.5 mg BID PO Last administered on 02/22/17 18:34; Admin Dose 12.5 MG; Start 02/22/17 at 09:00 Magnesium Hydroxide (Milk Of Mag) 30 ml DAILY PO ; Start 02/23/17 at 09:00 Diphenhydramine HCl (Benadryl) 25 mg Q6H PRN PO ITCHING Last administered on 12:08; Admin Dose 25 MG; Start 02/23/17 at 02:00 Hydrocortisone (Hydrocortisone 1% Cr) 1 applic BID TOP Last administered on 15:13; Admin Dose 1 APPLIC; Start 02/24/17 at 21:00 Fluocinolone Acetonide ([place] 0.01% Cr) 1 applic BID TOP Last administered on 03/02/17t 21:49; Admin Dose 1 APPLIC; Start 02/26/17 at 21:00 LZI MACKEY Mar 07, 2017 15:56
[2017-03-07 21:39] VITALS: BP 115/83; RESP 18
[2017-03-08 02:16] VITALS: BP_SYST 112; BP_SYST 127; BP_DIAS 62; BP_DIAS 79; RESP 19
[2017-03-08] MEDS: PANTOPRAZOLE (EC) 40 MG TAB PO SCH (07:30)
[2017-03-08] MEDS: HYDROCORTISONE 1% 28 GM CR TOP SCH ×2 (09:00→21:24)
[2017-03-08] MEDS: MAGNESIUM HYDROXIDE 30ML CUP PO SCH (09:00)
[2017-03-08] MEDS: MAGNESIUM OXIDE 400 MG TAB PO SCH (09:00)
[2017-03-08] MEDS: AMIODARONE 200 MG TAB PO SCH ×2 (09:00→21:00)
[2017-03-08] MEDS: METOPROLOL 25 MG TAB PO SCH ×2 (09:00→21:00)
[2017-03-08] MEDS: FUROSEMIDE 20 MG TAB PO SCH (09:00)
[2017-03-08] MEDS: FLUOCINOLONE TOP SCH ×2 (09:00→21:00)
[2017-03-08] MEDS: DOCUSATE SODIUM 100 MG CAP PO SCH ×3 (09:38→21:00)
[2017-03-08] MEDS: HYDROCODONE/APAP (5/325) TAB PO PRN ×2 (09:38→19:03)
[2017-03-08] MEDS: ASPIRIN (EC) 81 MG TAB PO SCH (09:38)
--- NOTE | 2017-03-08 17:07 | PN ---
Date/Time of Note Date/Time of Note DATE: 03/08/17 TIME: 17:05 Assessment/Plan VTE Prophylaxis VTE Prophylaxis Intervention: contraindicated Lines/Catheters IV Catheter Type (from Nrsg): No IV access Urinary Cath still in place: Yes Reason Cath still needed: urinary retention Assessment/Plan Chief Complaint/Hosp Course Assessment/Plan: 52-year-old male prior history of CAD with stent, sent from alf facility prior history of bilateral lower extremity amputations presents with: 1. Chronic pain-somewhat improved symptoms now -Patient has bilateral upper and lower extremity limb amputation and has been residing at the [facility]. Patient was transferred to [facility] mainly for pain management. -Palliative care/pain management consult appreciated, follow-up with them and mental health case manager regarding possible placement options for patient. 2. Bilateral upper and lower limb amputation-possibly secondary to "poisoning" in the past with possible subsequent skin infections leading to amputations, per patient, at [facility] where the patient states the procedure was performed about 10 years ago -Supportive care 3. CAD with a history of stent, also CM as EF = 25% - pt asking if he qualifies for AICD, so we will discuss with CV team. -Continue cardiac meds 4. Likely history of systolic dysfunction: Echocardiogram showed ejection fraction of 25%,Mild concentric left ventricular hypertrophy. Severe enlargement of left ventricle cavity. Severe global left ventricular systolic dysfunction. And moderate aortic regurg. -Continue current medications 5. Anemia, likely secondary to chronic disease-last blood draw was on February 21 -FOBT is still pending, to evaluate for GI blood loss especially given patient has been on rivaroxaban (we are holding this medicine) 6. Mild hyponatremia-apparently patient refusing labs to further evaluate this , patient is asymptomatic -Monitor for now Dispo: Awaiting final decision on hospice placement options as inpatient for this patient. Will follow up with mental health case manager on this. Problems: Subjective 24 Hr Interval Summary Free Text/Dictation Pt complaining about not getting a proper bath today, as well as the heat in his room. Exam/Review of Systems Vital Signs Vitals Vital Signs Date Time Temp Pulse Resp B/P Pulse Ox O2 Delivery O2 Flow Rate FiO2 03/08/17 02:16 97.9 82 19 112/79 Intake and Output 03/07/17 03/07/17 03/08/17 15:00 23:00 07:00 Intake Total 1540 ml 540 ml Output Total 850 ml 700 ml Balance 690 ml -160 ml Exam Lying in bed, asking for the nurse S1, S2 heard resp nonlabored abd nondistended priest in no rashes Medications Medications Current Medications Acetaminophen/ Hydrocodone Bitart ([place] (5/325)) 1 tab Q4H PRN PO PAIN Last administered on 03/08/17 09:38; Admin Dose 1 TAB; Start 02/22/17 at 01:00 Ondansetron HCl (Zofran Tab) 4 mg Q6H PRN PO NAUSEA AND/OR VOMITING Last administered on 03/03/17 17:32; Admin Dose 4 MG; Start 02/22/17 at 01:00 Acetaminophen (Tylenol Tab) 650 mg Q6H PRN PO PAIN AND OR ELEVATED TEMP; Start 02/22/17 at 01:00 Amiodarone HCl (Cordarone) 200 mg BID PO Last administered on 03/01/17 09:30; Admin Dose 200 MG; Start 02/22/17 at 09:00 Aspirin (Halfprin) 81 mg DAILY PO Last administered on 03/08/17 09:38; Admin Dose 81 MG; Start 02/22/17 at 09:00 Docusate Sodium (Colace) 100 mg BID PO Last administered on 03/08/17 09:38; Admin Dose 100 MG; Start 02/22/17 at 09:00 Furosemide (Lasix) 20 mg DAILY PO Last administered on 03/04/17 11:02; Admin Dose 20 MG; Start 02/22/17 at 09:00 Magnesium Oxide (Mag-Ox 400) 400 mg DAILY PO ; Start 02/22/17 at 09:00 Metoprolol Tartrate (Lopressor) 12.5 mg BID PO Last administered on 02/22/17 18:34; Admin Dose 12.5 MG; Start 02/22/17 at 09:00 Magnesium Hydroxide (Milk Of Mag) 30 ml DAILY PO ; Start 02/23/17 at 09:00 Diphenhydramine HCl (Benadryl) 25 mg Q6H PRN PO ITCHING Last administered on 12:08; Admin Dose 25 MG; Start 02/23/17 at 02:00 Hydrocortisone (Hydrocortisone 1% Cr) 1 applic BID TOP Last administered on 8/ 29/17at 23:51; Admin Dose 1 APPLIC; Start 02/24/17 at 21:00 Fluocinolone Acetonide (Synalar 0.01% Cr) 1 applic BID TOP Last administered on 03/07/17t 23:50; Admin Dose 1 APPLIC; Start 02/26/17 at 21:00 LIZ MACKEY Mar 08, 2017 17:07
[2017-03-08] MEDS: DIPHENHYDRAMINE 25 MG CAP PO PRN (19:02)
[2017-03-08 20:17] VITALS: BP 109/76; RESP 18
[2017-03-09 02:45] VITALS: BP 91/57; RESP 17
[2017-03-09] MEDS: PANTOPRAZOLE (EC) 40 MG TAB PO SCH (07:30)
[2017-03-09] MEDS: ONDANSETRON 4 MG TAB PO PRN (08:30)
[2017-03-09] MEDS: FLUOCINOLONE TOP SCH ×2 (09:00→21:00)
[2017-03-09] MEDS: HYDROCORTISONE 1% 28 GM CR TOP SCH ×2 (09:00→21:00)
[2017-03-09 09:31] VITALS: BP 119/80; RESP 20
[2017-03-09] MEDS: ASPIRIN (EC) 81 MG TAB PO SCH (10:20)
[2017-03-09] MEDS: FUROSEMIDE 20 MG TAB PO SCH (10:21)
[2017-03-09] MEDS: MAGNESIUM OXIDE 400 MG TAB PO SCH (10:24)
[2017-03-09] MEDS: METOPROLOL 25 MG TAB PO SCH ×2 (10:24→21:00)
[2017-03-09] MEDS: AMIODARONE 200 MG TAB PO SCH ×2 (10:24→21:00)
[2017-03-09] MEDS: MAGNESIUM HYDROXIDE 30ML CUP PO SCH (10:24)
[2017-03-09] MEDS: HYDROCODONE/APAP (5/325) TAB PO PRN (14:18)
--- NOTE | 2017-03-09 15:09 | PN ---
Date/Time of Note Date/Time of Note DATE: 03/09/17 TIME: 15:05 Assessment/Plan VTE Prophylaxis VTE Prophylaxis Intervention: contraindicated Lines/Catheters IV Catheter Type (from Nrsg): No IV access Urinary Cath still in place: Yes Reason Cath still needed: urinary retention Assessment/Plan Chief Complaint/Hosp Course Assessment/Plan: 52-year-old male prior history of CAD with stent, sent from snf facility prior history of bilateral lower extremity amputations presents with: 1. Chronic pain-somewhat improved symptoms now -Patient has bilateral upper and lower extremity limb amputation and has been residing at the [facility]. Patient was transferred to [facility] for "pain management" -Palliative care/pain management consult appreciated, follow-up with them and case work aide regarding possible placement options for patient. 2. Bilateral upper and lower limb amputation-possibly secondary to "poisoning" in the past with possible subsequent skin infections leading to amputations, per patient, at [facility] where the patient states the procedure was performed about 10 years ago -Supportive care 3. CAD with a history of stent, also CM as EF = 25% - pt asking if he qualifies for AICD, so we will discuss with CV team soon. -Continue cardiac meds 4. Likely history of systolic dysfunction: Echocardiogram showed ejection fraction of 25%,Mild concentric left ventricular hypertrophy. Severe enlargement of left ventricle cavity. Severe global left ventricular systolic dysfunction. And moderate aortic regurg. -Continue current medications 5. Anemia, likely secondary to chronic disease-last blood draw was on February 21 -FOBT is still pending, to evaluate for GI blood loss especially given patient has been on rivaroxaban (we are holding this medicine) 6. Mild hyponatremia-apparently patient refusing labs to further evaluate this , patient is asymptomatic -Monitor for now Dispo: Awaiting final decision on hospice placement options as inpatient for this patient. Will follow up with case work aide on this. Problems: Subjective 24 Hr Interval Summary Free Text/Dictation Patient had Garza catheter removed earlier today, complaining of some mild dysuria. Otherwise no acute events overnight other than the usual complaints. Exam/Review of Systems Vital Signs Vitals Vital Signs Date Time Temp Pulse Resp B/P Pulse Ox O2 Delivery O2 Flow Rate FiO2 03/09/17 09:31 98.6 89 20 119/80 96 Intake and Output 03/08/17 03/08/17 03/09/17 15:00 23:00 07:00 Intake Total 800 ml 400 ml Output Total 700 ml 500 ml Balance 100 ml -100 ml Exam Lying in bed, presently no acute distress S1, S2 heard resp nonlabored abd nondistended no rashes Medications Medications Current Medications Acetaminophen/ Hydrocodone Bitart ([place] (5/325)) 1 tab Q4H PRN PO PAIN Last administered on 03/09/17 14:18; Admin Dose 1 TAB; Start 02/22/17 at 01:00 Ondansetron HCl (Zofran Tab) 4 mg Q6H PRN PO NAUSEA AND/OR VOMITING Last administered on 03/09/17 08:30; Admin Dose 4 MG; Start 02/22/17 at 01:00 Acetaminophen (Tylenol Tab) 650 mg Q6H PRN PO PAIN AND OR ELEVATED TEMP; Start 02/22/17 at 01:00 Amiodarone HCl (Cordarone) 200 mg BID PO Last administered on 03/01/17 09:30; Admin Dose 200 MG; Start 02/22/17 at 09:00 Aspirin (Halfprin) 81 mg DAILY PO Last administered on 03/09/17 10:20; Admin Dose 81 MG; Start 02/22/17 at 09:00 Docusate Sodium (Colace) 100 mg BID PO Last administered on 03/08/17 09:38; Admin Dose 100 MG; Start 02/22/17 at 09:00 Furosemide (Lasix) 20 mg DAILY PO Last administered on 03/09/17 10:21; Admin Dose 20 MG; Start 02/22/17 at 09:00 Magnesium Oxide (Mag-Ox 400) 400 mg DAILY PO ; Start 02/22/17 at 09:00 Metoprolol Tartrate (Lopressor) 12.5 mg BID PO Last administered on 02/22/17 18:34; Admin Dose 12.5 MG; Start 02/22/17 at 09:00 Magnesium Hydroxide (Milk Of Mag) 30 ml DAILY PO ; Start 02/23/17 at 09:00 Diphenhydramine HCl (Benadryl) 25 mg Q6H PRN PO ITCHING Last administered on 19:02; Admin Dose 25 MG; Start 02/23/17 at 02:00 Hydrocortisone (Hydrocortisone 1% Cr) 1 applic BID TOP Last administered on 21:24; Admin Dose 1 APPLIC; Start 02/24/17 at 21:00 Fluocinolone Acetonide (Synalar 0.01% Cr) 1 applic BID TOP Last administered on 03/07/17 23:50; Admin Dose 1 APPLIC; Start 02/26/17 at 21:00 LIZ MACKEY Mar 09, 2017 15:09
[2017-03-09 15:41] VITALS: BP 137/86; RESP 20
[2017-03-09 17:44] LABS: ADD UMIC YES; UR ASCORBIC ACID NEGATIVE (NEGATIVE); UR BACTERIA FEW /HPF (NONE SEEN); UR BILIRUBIN (Dip) NEGATIVE (NEGATIVE); UR BLOOD (Dip) 2+ mg/dL (NEGATIVE); UR CLARITY CLOUDY (CLEAR); UR COLOR YELLOW (YELLOW); UR GLUCOSE (Dip) NEGATIVE (NEGATIVE); UR KETONES (Dip) NEGATIVE (NEGATIVE); UR LEUKOCYTE ESTERASE (Dip) 3+ Leu/ul (NEGATIVE); UR MUCUS FEW /HPF (NONE SEEN); UR NITRITE (Dip) NEGATIVE (NEGATIVE); UR NONSQUAMOUS EPITHELIAL CELL 1 /HPF (NONE SEEN); UR RBC 107 /HPF (0-5); UR SPECIFIC GRAVITY (Dip) 1.011 (1.003-1.030); UR TOTAL PROTEIN (Dip) 2+ mg/dl (NEGATIVE); UR UROBILINOGEN (Dip) 1+ mg/dL (NEGATIVE); UR WBC CLUMPS MANY /HPF (NONE SEEN)
[2017-03-09 20:00] VITALS: BP 111/78; RESP 20
[2017-03-09] MEDS: DOCUSATE SODIUM 100 MG CAP PO SCH (21:00)
[2017-03-10 02:00] VITALS: BP 115/84; RESP 20
[2017-03-10] MEDS: ONDANSETRON 4 MG TAB PO PRN (02:34)
[2017-03-10] MEDS: DIPHENHYDRAMINE 25 MG CAP PO PRN ×2 (02:35→22:47)
[2017-03-10] MEDS: PANTOPRAZOLE (EC) 40 MG TAB PO SCH (07:30)
[2017-03-10] MEDS: HYDROCODONE/APAP (5/325) TAB PO PRN (08:15)
[2017-03-10] MEDS: METOPROLOL 25 MG TAB PO SCH (09:00)
[2017-03-10] MEDS: AMIODARONE 200 MG TAB PO SCH ×2 (09:00→21:00)
[2017-03-10] MEDS: MAGNESIUM HYDROXIDE 30ML CUP PO SCH (09:00)
[2017-03-10] MEDS: FLUOCINOLONE TOP SCH ×2 (09:00→21:00)
[2017-03-10] MEDS: DOCUSATE SODIUM 100 MG CAP PO SCH ×2 (09:00→21:00)
[2017-03-10] MEDS: MAGNESIUM OXIDE 400 MG TAB PO SCH (09:00)
[2017-03-10] MEDS: HYDROCORTISONE 1% 28 GM CR TOP SCH ×2 (09:00→21:00)
[2017-03-10] MEDS: ASPIRIN (EC) 81 MG TAB PO SCH (09:24)
[2017-03-10] MEDS: FUROSEMIDE 20 MG TAB PO SCH (09:24)
[2017-03-10 14:00] VITALS: BP 118/62; RESP 20
--- NOTE | 2017-03-10 15:31 | PN ---
Date/Time of Note Date/Time of Note DATE: 03/10/17 TIME: 15:29 Assessment/Plan VTE Prophylaxis VTE Prophylaxis Intervention: contraindicated Lines/Catheters IV Catheter Type (from Nrsg): No IV access Urinary Cath still in place: No (Removed) Assessment/Plan Chief Complaint/Hosp Course Assessment/Plan: 52-year-old male prior history of CAD with stent, sent from long-term facility prior history of bilateral lower extremity amputations presents with: 1. Chronic pain-somewhat improved symptoms now -Patient has bilateral upper and lower extremity limb amputation and has been residing at the [facility]. Patient was transferred to [facility] for "pain management" -Palliative care/pain management consult appreciated, follow-up with them and keycase assembler regarding possible placement options for patient. 2. Bilateral upper and lower limb amputation-possibly secondary to "poisoning" in the past with possible subsequent skin infections leading to amputations, per patient, at [facility] where the patient states the procedure was performed about 10 years ago -Supportive care 3. CAD with a history of stent, also CM as EF = 25% - pt asking if he qualifies for AICD, so we will discuss with CV team, will request consult -Continue cardiac meds 4. Likely history of systolic dysfunction: Echocardiogram showed ejection fraction of 25%,Mild concentric left ventricular hypertrophy. Severe enlargement of left ventricle cavity. Severe global left ventricular systolic dysfunction. And moderate aortic regurg. -Continue current medications 5. Anemia, likely secondary to chronic disease-last blood draw was on February 21 -FOBT is still pending, to evaluate for GI blood loss especially given patient has been on rivaroxaban (we are holding this medicine) -We will also check hemoglobin hematocrit and BMP today 6. Mild hyponatremia-apparently patient refusing labs to further evaluate this , patient is asymptomatic -Monitor for now Dispo: Awaiting final decision on hospice placement options as inpatient for this patient. Will follow up with keycase assembler on this. Problems: Subjective 24 Hr Interval Summary Free Text/Dictation No acute events overnight. Exam/Review of Systems Vital Signs Vitals Vital Signs Date Time Temp Pulse Resp B/P Pulse Ox O2 Delivery O2 Flow Rate FiO2 03/10/17 14:00 98.8 82 20 118/62 96 Intake and Output 03/09/17 03/09/17 03/10/17 15:00 23:00 07:00 Intake Total 840 ml 600 ml Output Total 400 ml 600 ml Balance 440 ml 0 ml Exam Lying in bed, presently no acute distress S1, S2 heard resp nonlabored abd nondistended no rashes Results Results 24 hrs Laboratory Tests Test 03/09/17 15:45 Urine Color YELLOW Urine Clarity CLOUDY A Urine pH 5.0 Urine Specific [place] 1.011 Urine Ketones NEGATIVE Urine Nitrite NEGATIVE Urine Bilirubin NEGATIVE Urine Urobilinogen 1+ H Urine Leukocyte Esterase 3+ H Urine Microscopic RBC 107 H Urine Microscopic WBC > 182 H Urine Bacteria FEW A Urine Mucus FEW A Urine Hemoglobin 2+ H Urine Glucose NEGATIVE Urine Total Protein 2+ H Medications Medications Current Medications Acetaminophen/ Hydrocodone Bitart ([place] (5/325)) 1 tab Q4H PRN PO PAIN Last administered on 03/10/17 08:15; Admin Dose 1 TAB; Start 02/22/17 at 01:00 Ondansetron HCl (Zofran Tab) 4 mg Q6H PRN PO NAUSEA AND/OR VOMITING Last administered on 03/10/17 02:34; Admin Dose 4 MG; Start 02/22/17 at 01:00 Acetaminophen (Tylenol Tab) 650 mg Q6H PRN PO PAIN AND OR ELEVATED TEMP; Start 02/22/17 at 01:00 Amiodarone HCl (Cordarone) 200 mg BID PO Last administered on 03/01/17 09:30; Admin Dose 200 MG; Start 02/22/17 at 09:00 Aspirin (Halfprin) 81 mg DAILY PO Last administered on 03/10/17 09:24; Admin Dose 81 MG; Start 02/22/17 at 09:00 Docusate Sodium (Colace) 100 mg BID PO Last administered on 03/08/17 09:38; Admin Dose 100 MG; Start 02/22/17 at 09:00 Furosemide (Lasix) 20 mg DAILY PO Last administered on 03/10/17 09:24; Admin Dose 20 MG; Start 02/22/17 at 09:00 Magnesium Oxide (Mag-Ox 400) 400 mg DAILY PO ; Start 02/22/17 at 09:00 Metoprolol Tartrate (Lopressor) 12.5 mg BID PO Last administered on 02/22/17 18:34; Admin Dose 12.5 MG; Start 02/22/17 at 09:00 Magnesium Hydroxide (Milk Of Mag) 30 ml DAILY PO ; Start 02/23/17 at 09:00 Diphenhydramine HCl (Benadryl) 25 mg Q6H PRN PO ITCHING Last administered on 02:35; Admin Dose 25 MG; Start 02/23/17 at 02:00 Hydrocortisone (Hydrocortisone 1% Cr) 1 applic BID TOP Last administered on 03/10 09:00; Admin Dose 1 APPLIC; Start 02/24/17 at 21:00 Fluocinolone Acetonide (Synalar 0.01% Cr) 1 applic BID TOP Last administered on 03/07/17 23:50; Admin Dose 1 APPLIC; Start 02/26/17 at 21:00 LIZ MACKEY Mar 10, 2017 15:31
--- NOTE | 2017-03-10 16:10 | PDOCDIS ---
Discharge Instructions CONDITION Patient Condition: Stable HOME CARE INSTRUCTIONS: Diet Instructions: Low Fat /Cholesterol ACTIVITY: Activity Restrictions: Slowly Increase Activity FOLLOW UP/APPOINTMENTS Follow-up Plan Please take your medications as prescribed. If you experience any shortness of breath or productive cough or fevers, please come to ER, call 911, or go to primary care doctor. Please follow-up with your regular doctor in the clinic in the next 1 week. LIZ MACKEY Mar 10, 2017 16:10
[2017-03-10] MEDS ORDERED: LEVO750T25 PO (16:11)
--- NOTE | 2017-03-10 16:11 | CONS ---
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 Patient with cardiomyopathy ejection fraction 25% and ECG with evidence of left bundle branch block with QRS 198 ms. Unfortunately, patient noncompliant with medications and review of records and discussion with the nurse, patient has become combative at times and has refused testing including lab work and medications. Of importance at the current time is proper medication compliance. He is receiving narcotics which does also lower his blood pressure and limits the use of CV medication regimen. At the current time, would switch his Lopressor to Coreg, would start low-dose MARIXA inhibitor with holding parameters. Would continue maintenance diuretics. If the patient does show compliance, outpatient cardiology follow-up for possible ICD with biventricular pacing. Consultation Date/Type/Reason Admit Date/Time Feb 21, 2017 at 21:33 Type of Consultation: cv Reason for Consultation AICD evaluation Hx of Present Illness This is a 52-year-old male with past medical history of cardiomyopathy, CAD with history of stent over 10 years ago, amputations of all 4 extremities with possible peripheral arterial disease who was admitted to our facility secondary to pain control. Patient also was anemic on initial evaluation but as per the notes, has been refusing medications, laboratory studies. Given his decreased ejection fraction, cardiology condition was requested for evaluation for AICD. Patient denies any chest pain, shortness of breath, palpitations or dizziness. He is on amiodarone but he does not know why. On review of transfer paperwork with a discharge summary from [facility] from April 29 1116, patient was admitted at that time with severe sepsis and bilateral upper extremity cellulitis. Echocardiogram at that time showed ejection fraction 25% with apical clot. Recommendations were made at that time for ischemic evaluation which patient refused. Patient did have bilateral upper extremity amputations at that time. Patient was put on Eliquis for anticoagulation. This has been stopped at the current admission secondary to anemia. 12 point review of systems was performed with all pertinent positives and negatives mentioned above and all else is negative Psychological: anxiety, confusion, depression Past Medical History 4 extremity amputations Medical History: congestive heart failure, coronary artery disease Past Surgical History Amputations of all 4 extremities Past Surgical Hx: other (Bilateral upper and lower extremity amputations) Family History Significant Family History: no pertinent family hx Social History Alcohol Use: none Smoking Status: Former smoker Drug Use: none Exam/Review of Systems Vital Signs Vitals Vital Signs Date Time Temp Pulse Resp B/P Pulse Ox O2 Delivery O2 Flow Rate FiO2 03/10/17 14:00 98.8 82 20 118/62 96 Intake and Output 03/09/17 03/09/17 03/10/17 15:00 23:00 07:00 Intake Total 840 ml 600 ml Output Total 400 ml 600 ml Balance 440 ml 0 ml Exam No apparent distress Constitutional: alert, oriented Head: normocephalic Respiratory: other (Coarse breath sounds bilaterally, no wheezing) Cardiovascular: other (S1-S2 heard), regular rate and rhythm Gastrointestinal: bowel sounds, non-tender, soft Extremities: edema (Amputations of all 4 extremities) Medications Medications Current Medications Acetaminophen/ Hydrocodone Bitart ([place] (5/325)) 1 tab Q4H PRN PO PAIN Last administered on 03/10/17 08:15; Admin Dose 1 TAB; Start 02/22/17 at 01:00 Ondansetron HCl (Zofran Tab) 4 mg Q6H PRN PO NAUSEA AND/OR VOMITING Last administered on 03/10/17 02:34; Admin Dose 4 MG; Start 02/22/17 at 01:00 Acetaminophen (Tylenol Tab) 650 mg Q6H PRN PO PAIN AND OR ELEVATED TEMP; Start 02/22/17 at 01:00 Amiodarone HCl (Cordarone) 200 mg BID PO Last administered on 03/01/17 09:30; Admin Dose 200 MG; Start 02/22/17 at 09:00 Aspirin (Halfprin) 81 mg DAILY PO Last administered on 03/10/17 09:24; Admin Dose 81 MG; Start 02/22/17 at 09:00 Docusate Sodium (Colace) 100 mg BID PO Last administered on 03/08/17 09:38; Admin Dose 100 MG; Start 02/22/17 at 09:00 Furosemide (Lasix) 20 mg DAILY PO Last administered on 03/10/17 09:24; Admin Dose 20 MG; Start 02/22/17 at 09:00 Magnesium Oxide (Mag-Ox 400) 400 mg DAILY PO ; Start 02/22/17 at 09:00 Metoprolol Tartrate (Lopressor) 12.5 mg BID PO Last administered on 02/22/17 18:34; Admin Dose 12.5 MG; Start 02/22/17 at 09:00 Magnesium Hydroxide (Milk Of Mag) 30 ml DAILY PO ; Start 02/23/17 at 09:00 Diphenhydramine HCl (Benadryl) 25 mg Q6H PRN PO ITCHING Last administered on 02:35; Admin Dose 25 MG; Start 02/23/17 at 02:00 Hydrocortisone (Hydrocortisone 1% Cr) 1 applic BID TOP Last administered on 03/10 09:00; Admin Dose 1 APPLIC; Start 02/24/17 at 21:00 Fluocinolone Acetonide (Synalar 0.01% Cr) 1 applic BID TOP Last administered on 03/07/17 23:50; Admin Dose 1 APPLIC; Start 02/26/17 at 21:00 Procedures Procedures ECG done today with sinus rhythm at 86 bpm with first-degree AV block [place] interval 230 ms, left bundle branch block with QRS 198 ms, nonspecific ST segment abnormalities Zak Alonzo DO Mar 10, 2017 16:10
--- NOTE | 2017-03-10 16:20 | RADRPT ---
Vent Rate: 86 bpm RR Interval: 0 msec [place] Interval: 230 msec QRS Duration: 198 msec QT Interval: 460 msec QTC Interval: 550 msec P-R-T [place]: 18 - -45 - 96 degrees Sinus rhythm with 1st degree AV block Left axis deviation Left bundle branch block Abnormal ECG Electronically Signed By: Zak Alonzo [id number]
[2017-03-10 23:00] VITALS: BP 108/70; RESP 18
--- NOTE | 2017-03-11 01:46 | DS ---
DATE OF ADMISSION: 02/21/2017 DATE OF DISCHARGE: 03/10/2017 DICTATION CANCELLED Dictated By: Rob Duckworth MD /[email or web address]/casi /Document#: [id number]
[2017-03-11 04:01] VITALS: BP 82/57; RESP 18
[2017-03-11] MEDS: HYDROCODONE/APAP (5/325) TAB PO PRN ×2 (05:20→09:51)
[2017-03-11] MEDS: PANTOPRAZOLE (EC) 40 MG TAB PO SCH (07:30)
[2017-03-11 07:59] VITALS: BP 112/71; RESP 18
[2017-03-11] MEDS: ASPIRIN (EC) 81 MG TAB PO SCH (09:00)
[2017-03-11] MEDS: LISINOPRIL 5 MG TAB PO SCH (09:00)
[2017-03-11] MEDS: HYDROCORTISONE 1% 28 GM CR TOP SCH ×2 (09:00→21:00)
[2017-03-11] MEDS: MAGNESIUM HYDROXIDE 30ML CUP PO SCH (09:00)
[2017-03-11] MEDS: DOCUSATE SODIUM 100 MG CAP PO SCH ×2 (09:00→21:00)
[2017-03-11] MEDS: FLUOCINOLONE TOP SCH ×2 (09:00→21:00)
[2017-03-11] MEDS: AMIODARONE 200 MG TAB PO SCH ×2 (09:00→21:00)
[2017-03-11] MEDS: FUROSEMIDE 20 MG TAB PO SCH (09:00)
[2017-03-11] MEDS: MAGNESIUM OXIDE 400 MG TAB PO SCH (09:00)
[2017-03-11] MEDS: DIPHENHYDRAMINE 25 MG CAP PO PRN (09:51)
--- NOTE | 2017-03-11 17:15 | PN ---
Date/Time of Note Date/Time of Note DATE: 03/11/17 TIME: 17:13 Assessment/Plan VTE Prophylaxis VTE Prophylaxis Intervention: contraindicated Lines/Catheters IV Catheter Type (from Nrs): No IV access Urinary Cath still in place: No Assessment/Plan Chief Complaint/Hosp Course Assessment/Plan: 52-year-old male prior history of CAD with stent, sent from [facility] facility prior history of bilateral lower extremity amputations presents with: 1. Chronic pain-somewhat improved symptoms now -Patient has bilateral upper and lower extremity limb amputation and has been residing at the [facility]. Patient was transferred to [facility] for "pain management" -Palliative care/pain management consult appreciated, follow-up with them and keycase assembler regarding possible placement options for patient. 2. Bilateral upper and lower limb amputation-possibly secondary to "poisoning" in the past with possible subsequent skin infections leading to amputations, per patient, at [facility] where the patient states the procedure was performed about 10 years ago -Supportive care 3. CAD with a history of stent, also CM as EF = 25% -Per cardiology team, AICD consideration for placement of this can be determined as an outpatient as long as patient becomes more compliant with his cardiac medications. -Continue MARIXA inhibitor and beta-rylee for now, 4. Likely history of systolic dysfunction: Echocardiogram showed ejection fraction of 25%,Mild concentric left ventricular hypertrophy. Severe enlargement of left ventricle cavity. Severe global left ventricular systolic dysfunction. And moderate aortic regurg. -Continue current medications -See #3 5. Anemia, likely secondary to chronic disease-last blood draw was on February 21 -FOBT is still pending, to evaluate for GI blood loss especially given patient has been on rivaroxaban (we are holding this medicine) -We will also check hemoglobin hematocrit and BMP today 6. Mild hyponatremia-apparently patient refusing labs to further evaluate this , patient is asymptomatic -Monitor for now 7. MRSA UTI: Patient reluctantly agrees to antibiotics, based on sensitivities we will start doxycycline 100 mg p.o. twice daily for 10 days Dispo: Awaiting final decision on hospice placement options as inpatient for this patient. Will follow up with keycase assembler on this. Problems: Subjective 24 Hr Interval Summary Free Text/Dictation Patient seen by cardiology team yesterday. Started on new blood pressure medicines, however patient refused to take these today. Also, positive MRSA in his urine culture test. Exam/Review of Systems Vital Signs Vitals Vital Signs Date Time Temp Pulse Resp B/P Pulse Ox O2 Delivery O2 Flow Rate FiO2 03/11/17 07:59 98.6 90 18 112/71 94 Intake and Output 03/10/17 03/10/17 03/11/17 15:00 23:00 07:00 Intake Total 500 ml 340 ml Output Total 650 ml 700 ml Balance -150 ml -360 ml Exam Lying in bed, presently no acute distress S1, S2 heard resp nonlabored abd nondistended no rashes Medications Medications Current Medications Acetaminophen/ Hydrocodone Bitart ([place] (5/325)) 1 tab Q4H PRN PO PAIN Last administered on 03/11/17 09:51; Admin Dose 1 TAB; Start 02/22/17 at 01:00 Ondansetron HCl (Zofran Tab) 4 mg Q6H PRN PO NAUSEA AND/OR VOMITING Last administered on 03/10/17 02:34; Admin Dose 4 MG; Start 02/22/17 at 01:00 Acetaminophen (Tylenol Tab) 650 mg Q6H PRN PO PAIN AND OR ELEVATED TEMP; Start 02/22/17 at 01:00 Amiodarone HCl (Cordarone) 200 mg BID PO Last administered on 03/01/17 09:30; Admin Dose 200 MG; Start 02/22/17 at 09:00 Aspirin (Halfprin) 81 mg DAILY PO Last administered on 03/10/17 09:24; Admin Dose 81 MG; Start 02/22/17 at 09:00 Docusate Sodium (Colace) 100 mg BID PO Last administered on 03/08/17 09:38; Admin Dose 100 MG; Start 02/22/17 at 09:00 Furosemide (Lasix) 20 mg DAILY PO Last administered on 03/10/17 09:24; Admin Dose 20 MG; Start 02/22/17 at 09:00 Magnesium Oxide (Mag-Ox 400) 400 mg DAILY PO ; Start 02/22/17 at 09:00 Magnesium Hydroxide (Milk Of Mag) 30 ml DAILY PO ; Start 02/23/17 at 09:00 Diphenhydramine HCl (Benadryl) 25 mg Q6H PRN PO ITCHING Last administered on 09:51; Admin Dose 25 MG; Start 02/23/17 at 02:00 Hydrocortisone (Hydrocortisone 1% Cr) 1 applic BID TOP Last administered on 03/10 09:00; Admin Dose 1 APPLIC; Start 02/24/17 at 21:00 Fluocinolone Acetonide (Synalar 0.01% Cr) 1 applic BID TOP Last administered on 03/07/17 23:50; Admin Dose 1 APPLIC; Start 02/26/17 at 21:00 Carvedilol (Coreg) 3.125 mg BID GTB ; Start 03/10/17 at 21:00 Lisinopril (Zestril) 2.5 mg DAILY PO ; Start 03/11/17 at 09:00 LIZ MACKEY Mar 11, 2017 17:15
[2017-03-11] MEDS: DOXYCYCLINE 100 MG TAB PO SCH ×2 (19:04→21:00)
[2017-03-11] MEDS: ONDANSETRON 4 MG TAB PO PRN (19:04)
[2017-03-11 23:22] VITALS: BP 106/73; RESP 18
[2017-03-12 03:49] VITALS: BP 119/70; RESP 18
[2017-03-12 07:10] VITALS: BP 155/62; RESP 20
[2017-03-12] MEDS: PANTOPRAZOLE (EC) 40 MG TAB PO SCH (07:30)
--- NOTE | 2017-03-12 08:41 | CONS ---
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 Compensated systolic congestive failure Severe cardiomyopathy with ejection fraction 25% Left bundle branch block CAD with history of PCI Psychiatric disorder Medication noncompliance Problems: Additional Assessment/Plan continue current meds ICD deferred until medically compliant after renewed outpatient eval Consultation Date/Type/Reason Admit Date/Time Feb 21, 2017 at 21:33 Initial Consult Date Type of Consultation: cv 24 HR Interval Summary Free Text/Dictation combative at times, no chest pain or sob Detailed Summary Respiratory: no complaints Cardiovascular: no complaints Gastrointestinal: no complaints Musculoskeletal: no complaints Skin: no complaints Neurologic: no complaints Exam/Review of Systems Vital Signs Vitals Vital Signs Date Time Temp Pulse Resp B/P Pulse Ox O2 Delivery O2 Flow Rate FiO2 03/12/17 07:10 97.8 61 20 155/62 92 Intake and Output 03/11/17 03/11/17 03/12/17 15:00 23:00 07:00 Intake Total 1080 ml 680 ml Output Total 1000 ml 450 ml Balance 80 ml 230 ml Exam Constitutional: oriented Head: atraumatic, normocephalic Neck: supple Respiratory: clear to auscultation Cardiovascular: regular rate and rhythm Gastrointestinal: soft Musculoskeletal: nl extremities to inspection Extremities: normal pulses Medications Medications Current Medications Acetaminophen/ Hydrocodone Bitart ([place] (5/325)) 1 tab Q4H PRN PO PAIN Last administered on 03/11/17 09:51; Admin Dose 1 TAB; Start 02/22/17 at 01:00 Ondansetron HCl (Zofran Tab) 4 mg Q6H PRN PO NAUSEA AND/OR VOMITING Last administered on 03/11/17 19:04; Admin Dose 4 MG; Start 02/22/17 at 01:00 Acetaminophen (Tylenol Tab) 650 mg Q6H PRN PO PAIN AND OR ELEVATED TEMP; Start 02/22/17 at 01:00 Amiodarone HCl (Cordarone) 200 mg BID PO Last administered on 03/01/17 09:30; Admin Dose 200 MG; Start 02/22/17 at 09:00 Aspirin (Halfprin) 81 mg DAILY PO Last administered on 03/10/17 09:24; Admin Dose 81 MG; Start 02/22/17 at 09:00 Docusate Sodium (Colace) 100 mg BID PO Last administered on 03/08/17 09:38; Admin Dose 100 MG; Start 02/22/17 at 09:00 Furosemide (Lasix) 20 mg DAILY PO Last administered on 03/10/17 09:24; Admin Dose 20 MG; Start 02/22/17 at 09:00 Magnesium Oxide (Mag-Ox 400) 400 mg DAILY PO ; Start 02/22/17 at 09:00 Magnesium Hydroxide (Milk Of Mag) 30 ml DAILY PO ; Start 02/23/17 at 09:00 Diphenhydramine HCl (Benadryl) 25 mg Q6H PRN PO ITCHING Last administered on 09:51; Admin Dose 25 MG; Start 02/23/17 at 02:00 Hydrocortisone (Hydrocortisone 1% Cr) 1 applic BID TOP Last administered on 03/10 09:00; Admin Dose 1 APPLIC; Start 02/24/17 at 21:00 Fluocinolone Acetonide (Synalar 0.01% Cr) 1 applic BID TOP Last administered on 03/07/17 23:50; Admin Dose 1 APPLIC; Start 02/26/17 at 21:00 Carvedilol (Coreg) 3.125 mg BID GTB ; Start 03/10/17 at 21:00 Lisinopril (Zestril) 2.5 mg DAILY PO ; Start 03/11/17 at 09:00 Doxycycline Hyclate (Vibramycin) 100 mg BID PO Last administered on 03/11/17 19 :04; Admin Dose 100 MG; Start 03/11/17 at 17:30; Stop 03/20/17 at 23:55 JUAN WATTS MD Mar 12, 2017 08:41
[2017-03-12] MEDS: MAGNESIUM OXIDE 400 MG TAB PO SCH (09:00)
[2017-03-12] MEDS: HYDROCORTISONE 1% 28 GM CR TOP SCH ×2 (09:00→21:00)
[2017-03-12] MEDS: FUROSEMIDE 20 MG TAB PO SCH (09:00)
[2017-03-12] MEDS: MAGNESIUM HYDROXIDE 30ML CUP PO SCH (09:00)
[2017-03-12] MEDS: AMIODARONE 200 MG TAB PO SCH ×2 (09:00→21:00)
[2017-03-12] MEDS: FLUOCINOLONE TOP SCH ×2 (09:00→21:00)
[2017-03-12] MEDS: LISINOPRIL 5 MG TAB PO SCH (09:00)
[2017-03-12] MEDS: ASPIRIN (EC) 81 MG TAB PO SCH (09:58)
[2017-03-12] MEDS: DOCUSATE SODIUM 100 MG CAP PO SCH ×2 (09:58→21:00)
[2017-03-12] MEDS: HYDROCODONE/APAP (5/325) TAB PO PRN ×2 (09:58→22:38)
[2017-03-12] MEDS: DOXYCYCLINE 100 MG TAB PO SCH ×2 (10:01→20:59)
--- NOTE | 2017-03-12 14:04 | PN ---
Date/Time of Note Date/Time of Note DATE: 03/12/17 TIME: 14:01 Assessment/Plan VTE Prophylaxis VTE Prophylaxis Intervention: contraindicated Lines/Catheters IV Catheter Type (from Nrs): No IV access Urinary Cath still in place: No Assessment/Plan Chief Complaint/Hosp Course Assessment/Plan: 52-year-old male prior history of CAD with stent, sent from senior care facility prior history of bilateral lower extremity amputations presents with: 1. Chronic pain-somewhat improved symptoms now -Patient has bilateral upper and lower extremity limb amputation and has been residing at the [facility]. Patient was transferred to [facility] for "pain management" -Palliative care/pain management consult appreciated, follow-up with them and showcase trimmer regarding possible placement options for patient. 2. Bilateral upper and lower limb amputation-likely secondary to malignant tophaceous gout (although twisting the patient stated it was possibly secondary to "poisoning" in the past with possible subsequent skin infections). Patient states the procedure was performed about 10 years ago -Supportive care 3. CAD with a history of stent, also CM as EF = 25% -Per cardiology team, AICD consideration for placement of this can be determined as an outpatient as long as patient becomes more compliant with his cardiac medications. -Continue MARIXA inhibitor and beta-rylee for now, although patient presently refusing to take these 4. Likely history of systolic dysfunction: Echocardiogram showed ejection fraction of 25%,Mild concentric left ventricular hypertrophy. Severe enlargement of left ventricle cavity. Severe global left ventricular systolic dysfunction. And moderate aortic regurg. -Continue current medications -See #3 5. Anemia, likely secondary to chronic disease-last blood draw was on February 21 -FOBT is still pending, to evaluate for GI blood loss especially given patient has been on rivaroxaban (we are holding this medicine) -Ordered for hematocrit and BMP yesterday, but patient refused, monitor for any signs of bleeding. 6. Mild hyponatremia-apparently patient refusing labs to further evaluate this , patient is asymptomatic -Monitor for now 7. MRSA UTI: Patient reluctantly agrees to antibiotics, based on sensitivities he was started on doxycycline 100 mg p.o. twice daily yesterday, will need for 10 days total Dispo: Awaiting final decision on hospice placement options as inpatient for this patient. Will follow up with showcase trimmer on this. Problems: Subjective 24 Hr Interval Summary Free Text/Dictation Patient refusing cardiac medications, but per nursing staff is taking his antibiotics. Seen by cardiology team this morning. Exam/Review of Systems Vital Signs Vitals Vital Signs Date Time Temp Pulse Resp B/P Pulse Ox O2 Delivery O2 Flow Rate FiO2 03/12/17 07:10 97.8 61 20 155/62 92 Intake and Output 03/11/17 03/11/17 03/12/17 15:00 23:00 07:00 Intake Total 1080 ml 680 ml Output Total 1000 ml 450 ml Balance 80 ml 230 ml Exam Lying in bed, presently no acute distress S1, S2 heard resp nonlabored abd nondistended no rashes Medications Medications Current Medications Acetaminophen/ Hydrocodone Bitart ([place] (5/325)) 1 tab Q4H PRN PO PAIN Last administered on 03/12/17 09:58; Admin Dose 1 TAB; Start 02/22/17 at 01:00 Ondansetron HCl (Zofran Tab) 4 mg Q6H PRN PO NAUSEA AND/OR VOMITING Last administered on 03/11/17 19:04; Admin Dose 4 MG; Start 02/22/17 at 01:00 Acetaminophen (Tylenol Tab) 650 mg Q6H PRN PO PAIN AND OR ELEVATED TEMP; Start 02/22/17 at 01:00 Amiodarone HCl (Cordarone) 200 mg BID PO Last administered on 03/01/17 09:30; Admin Dose 200 MG; Start 02/22/17 at 09:00 Aspirin (Halfprin) 81 mg DAILY PO Last administered on 03/12/17 09:58; Admin Dose 81 MG; Start 02/22/17 at 09:00 Docusate Sodium (Colace) 100 mg BID PO Last administered on 03/12/17 09:58; Admin Dose 100 MG; Start 02/22/17 at 09:00 Furosemide (Lasix) 20 mg DAILY PO Last administered on 03/10/17 09:24; Admin Dose 20 MG; Start 02/22/17 at 09:00 Magnesium Oxide (Mag-Ox 400) 400 mg DAILY PO ; Start 02/22/17 at 09:00 Magnesium Hydroxide (Milk Of Mag) 30 ml DAILY PO ; Start 02/23/17 at 09:00 Diphenhydramine HCl (Benadryl) 25 mg Q6H PRN PO ITCHING Last administered on 09:51; Admin Dose 25 MG; Start 02/23/17 at 02:00 Hydrocortisone (Hydrocortisone 1% Cr) 1 applic BID TOP Last administered on 03/10 09:00; Admin Dose 1 APPLIC; Start 02/24/17 at 21:00 Fluocinolone Acetonide (Synalar 0.01% Cr) 1 applic BID TOP Last administered on 03/07/17 23:50; Admin Dose 1 APPLIC; Start 02/26/17 at 21:00 Carvedilol (Coreg) 3.125 mg BID GTB ; Start 03/10/17 at 21:00 Lisinopril (Zestril) 2.5 mg DAILY PO ; Start 03/11/17 at 09:00 Doxycycline Hyclate (Vibramycin) 100 mg BID PO Last administered on 03/12/17 10 :01; Admin Dose 100 MG; Start 03/11/17 at 17:30; Stop 03/20/17 at 23:55 LIZ MACKEY Mar 12, 2017 14:04
[2017-03-12 22:00] VITALS: BP 109/63; RESP 18
[2017-03-12] MEDS: ONDANSETRON 4 MG TAB PO PRN (22:38)
[2017-03-13] MEDS: DIPHENHYDRAMINE 25 MG CAP PO PRN ×2 (02:03→15:44)
[2017-03-13] MEDS: PANTOPRAZOLE (EC) 40 MG TAB PO SCH (07:30)
[2017-03-13] MEDS: MAGNESIUM HYDROXIDE 30ML CUP PO SCH (09:00)
[2017-03-13] MEDS: FLUOCINOLONE TOP SCH ×2 (09:00→21:00)
[2017-03-13] MEDS: MAGNESIUM OXIDE 400 MG TAB PO SCH (09:00)
[2017-03-13] MEDS: FUROSEMIDE 20 MG TAB PO SCH (09:00)
[2017-03-13] MEDS: HYDROCORTISONE 1% 28 GM CR TOP SCH ×2 (09:00→21:00)
[2017-03-13] MEDS: LISINOPRIL 5 MG TAB PO SCH (09:00)
[2017-03-13] MEDS: AMIODARONE 200 MG TAB PO SCH ×2 (09:00→21:00)
[2017-03-13] MEDS: ASPIRIN (EC) 81 MG TAB PO SCH (11:29)
[2017-03-13] MEDS: DOXYCYCLINE 100 MG TAB PO SCH ×2 (11:29→21:25)
[2017-03-13] MEDS: DOCUSATE SODIUM 100 MG CAP PO SCH ×2 (11:29→21:00)
[2017-03-13 12:00] VITALS: BP 107/77; RESP 20
[2017-03-13] MEDS: ONDANSETRON 4 MG TAB PO PRN (13:14)
[2017-03-13] MEDS: HYDROCODONE/APAP (5/325) TAB PO PRN (13:14)
--- NOTE | 2017-03-13 15:07 | PN ---
Date/Time of Note Date/Time of Note DATE: 03/13/17 TIME: 15:03 Assessment/Plan VTE Prophylaxis VTE Prophylaxis Intervention: SCD's Lines/Catheters IV Catheter Type (from Nrsg): No IV access Urinary Cath still in place: No Assessment/Plan Assessment/Plan 52-year-old male with pmhx bl UE and LE amputations sent from [facility] for placement at new [facility] cont pain meds cont CV meds -of note, pt seen by cardiology given low EF. outpatient f/u advised for ICD eval given extensive nonadherence hx SW assisting with dispo rivaroxaban on hold for anemia, of note pt refusing all labs. FOBT negative--PT DENIES HE WAS EVER ON THIS MEDICINE hyponatremia: pt refusing labs to check on Na status MRSA bactiuria: unclear if UTI or not as I was not on service at time of diagnosis. Cont doxycycline. priest d/c'ed medically clear for discharge pending placement 7. MRSA UTI: Patient reluctantly agrees to antibiotics, based on sensitivities he was started on doxycycline 100 mg p.o. twice daily yesterday, will need for 10 days total Dispo: Awaiting final decision on hospice placement options as inpatient for this patient. Will follow up with block and case maker on this. Subjective 24 Hr Interval Summary Free Text/Dictation States the only blood thinner he was ever on was aspirin Exam/Review of Systems Vital Signs Vitals Vital Signs Date Time Temp Pulse Resp B/P Pulse Ox O2 Delivery O2 Flow Rate FiO2 03/12/17 22:00 98.0 94 18 109/63 03/11/17 07:59 94 Intake and Output 03/12/17 03/12/17 03/13/17 15:00 23:00 07:00 Intake Total 1120 ml 570 ml Output Total 650 ml 430 ml Balance 470 ml 140 ml Exam frustrated resp nonlabored no abd distension no rashes stump sites c/d/i Medications Medications Current Medications Acetaminophen/ Hydrocodone Bitart ([place] (5/325)) 1 tab Q4H PRN PO PAIN Last administered on 03/13/17 13:14; Admin Dose 1 TAB; Start 02/22/17 at 01:00 Ondansetron HCl (Zofran Tab) 4 mg Q6H PRN PO NAUSEA AND/OR VOMITING Last administered on 03/13/17 13:14; Admin Dose 4 MG; Start 02/22/17 at 01:00 Acetaminophen (Tylenol Tab) 650 mg Q6H PRN PO PAIN AND OR ELEVATED TEMP; Start 02/22/17 at 01:00 Amiodarone HCl (Cordarone) 200 mg BID PO Last administered on 03/01/17 09:30; Admin Dose 200 MG; Start 02/22/17 at 09:00 Aspirin (Halfprin) 81 mg DAILY PO Last administered on 03/13/17 11:29; Admin Dose 81 MG; Start 02/22/17 at 09:00 Docusate Sodium (Colace) 100 mg BID PO Last administered on 03/13/17 11:29; Admin Dose 100 MG; Start 02/22/17 at 09:00 Furosemide (Lasix) 20 mg DAILY PO Last administered on 03/10/17 09:24; Admin Dose 20 MG; Start 02/22/17 at 09:00 Magnesium Oxide (Mag-Ox 400) 400 mg DAILY PO ; Start 02/22/17 at 09:00 Magnesium Hydroxide (Milk Of Mag) 30 ml DAILY PO ; Start 02/23/17 at 09:00 Diphenhydramine HCl (Benadryl) 25 mg Q6H PRN PO ITCHING Last administered on 02:03; Admin Dose 25 MG; Start 02/23/17 at 02:00 Hydrocortisone (Hydrocortisone 1% Cr) 1 applic BID TOP Last administered on 03/10 09:00; Admin Dose 1 APPLIC; Start 02/24/17 at 21:00 Fluocinolone Acetonide (Synalar 0.01% Cr) 1 applic BID TOP Last administered on 03/07/17 23:50; Admin Dose 1 APPLIC; Start 02/26/17 at 21:00 Carvedilol (Coreg) 3.125 mg BID GTB ; Start 03/10/17 at 21:00 Lisinopril (Zestril) 2.5 mg DAILY PO ; Start 03/11/17 at 09:00 Doxycycline Hyclate (Vibramycin) 100 mg BID PO Last administered on 03/13/17 11 :29; Admin Dose 100 MG; Start 03/11/17 at 17:30; Stop 03/20/17 at 23:55 CRISTIANO URBINA MD Mar 13, 2017 15:07 Dose 81 MG; Start 02/22/17 at 09:00 Docusate Sodium (Colace) 100 mg BID PO Last administered on 03/13/17 11:29; Admin Dose 100 MG; Start 02/22/17 at 09:00 Furosemide (Lasix) 20 mg DAILY PO Last administered on 03/10/17 09:24; Admin Dose 20 MG; Start 02/22/17 at 09:00 Magnesium Oxide (Mag-Ox 400) 400 mg DAILY PO ; Start 02/22/17 at 09:00 Magnesium Hydroxide (Milk Of Mag) 30 ml DAILY PO ; Start 02/23/17 at 09:00 Diphenhydramine HCl (Benadryl) 25 mg Q6H PRN PO ITCHING Last administered on 02:03; Admin Dose 25 MG; Start 02/23/17 at 02:00 Hydrocortisone (Hydrocortisone 1% Cr) 1 applic BID TOP Last administered on 03/10 09:00; Admin Dose 1 APPLIC; Start 02/24/17 at 21:00 Fluocinolone Acetonide (Synalar 0.01% Cr) 1 applic BID TOP Last administered on 03/07/17 23:50; Admin Dose 1 APPLIC; Start 02/26/17 at 21:00 Carvedilol (Coreg) 3.125 mg BID GTB ; Start 03/10/17 at 21:00 Lisinopril (Zestril) 2.5 mg DAILY PO ; Start 03/11/17 at 09:00 Doxycycline Hyclate (Vibramycin) 100 mg BID PO Last administered on 03/13/17 11 :29; Admin Dose 100 MG; Start 03/11/17 at 17:30; Stop 03/20/17 at 23:55 CRISTIANO URBINA MD Mar 13, 2017 15:07
[2017-03-13 16:21] VITALS: BP 117/70; RESP 18
[2017-03-13 19:45] VITALS: BP 102/67; RESP 18
[2017-03-14] MEDS: HYDROCODONE/APAP (5/325) TAB PO PRN ×3 (00:52→22:34)
[2017-03-14] MEDS: PANTOPRAZOLE (EC) 40 MG TAB PO SCH (07:30)
[2017-03-14 08:00] VITALS: BP 100/62; RESP 21
[2017-03-14] MEDS: DOCUSATE SODIUM 100 MG CAP PO SCH ×2 (09:00→22:30)
[2017-03-14] MEDS: ASPIRIN (EC) 81 MG TAB PO SCH (09:00)
[2017-03-14] MEDS: LISINOPRIL 5 MG TAB PO SCH (09:00)
[2017-03-14] MEDS: DOXYCYCLINE 100 MG TAB PO SCH ×3 (09:00→22:30)
[2017-03-14] MEDS: FLUOCINOLONE TOP SCH ×2 (09:00→22:31)
[2017-03-14] MEDS: MAGNESIUM HYDROXIDE 30ML CUP PO SCH (09:00)
[2017-03-14] MEDS: FUROSEMIDE 20 MG TAB PO SCH (09:00)
[2017-03-14] MEDS: AMIODARONE 200 MG TAB PO SCH ×2 (09:00→22:31)
[2017-03-14] MEDS: MAGNESIUM OXIDE 400 MG TAB PO SCH (09:00)
[2017-03-14] MEDS: HYDROCORTISONE 1% 28 GM CR TOP SCH ×2 (09:00→22:31)
[2017-03-14] MEDS: ONDANSETRON 4 MG TAB PO PRN (10:45)
[2017-03-14] MEDS: DIPHENHYDRAMINE 25 MG CAP PO PRN ×2 (13:53→22:34)
[2017-03-14 14:00] VITALS: BP 119/65; RESP 19
--- NOTE | 2017-03-14 16:58 | PN ---
Date/Time of Note Date/Time of Note DATE: 03/14/17 TIME: 16:55 Assessment/Plan VTE Prophylaxis VTE Prophylaxis Intervention: SCD's Lines/Catheters IV Catheter Type (from Nrsg): No IV access Urinary Cath still in place: No Assessment/Plan Assessment/Plan 52-year-old male with pmhx bl UE and LE amputations sent from SNF for placement at new SNF cont pain meds cont CV meds -of note, pt seen by cardiology given low EF. outpatient f/u advised for ICD eval given extensive nonadherence hx SW assisting with dispo rivaroxaban on hold for anemia, of note pt refusing all labs. FOBT negative--PT DENIES HE WAS EVER ON THIS MEDICINE hyponatremia: pt refusing labs to check on Na status MRSA bactiuria: unclear if UTI or not as I was not on service at time of diagnosis. Cont doxycycline. 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 will cs gen surg in AM talk to pt in AM about prospect of checking uric acid level, stating allopurinol medically clear for discharge pending placement Subjective 24 Hr Interval Summary Free Text/Dictation with visualized tophi in L elbow Exam/Review of Systems Vital Signs Vitals Vital Signs Date Time Temp Pulse Resp B/P Pulse Ox O2 Delivery O2 Flow Rate FiO2 03/14/17 08:00 97.7 88 21 100/62 97 Intake and Output 03/13/17 03/13/17 03/14/17 15:00 23:00 07:00 Intake Total 750 ml 520 ml Output Total 500 ml 500 ml Balance 250 ml 20 ml Exam laying in bed no mrg lungs clear abd soft stump site c/d/i L elbow with small tophi over extensor aspect, no joint swelling Medications Medications Current Medications Acetaminophen/ Hydrocodone Bitart ([place] (5/325)) 1 tab Q4H PRN PO PAIN Last administered on 03/14/17 13:54; Admin Dose 1 TAB; Start 02/22/17 at 01:00 Ondansetron HCl (Zofran Tab) 4 mg Q6H PRN PO NAUSEA AND/OR VOMITING Last administered on 03/14/17 10:45; Admin Dose 4 MG; Start 02/22/17 at 01:00 Acetaminophen (Tylenol Tab) 650 mg Q6H PRN PO PAIN AND OR ELEVATED TEMP; Start 02/22/17 at 01:00 Amiodarone HCl (Cordarone) 200 mg BID PO Last administered on 03/01/17 09:30; Admin Dose 200 MG; Start 02/22/17 at 09:00 Aspirin (Halfprin) 81 mg DAILY PO Last administered on 03/13/17 11:29; Admin Dose 81 MG; Start 02/22/17 at 09:00 Docusate Sodium (Colace) 100 mg BID PO Last administered on 03/13/17 11:29; Admin Dose 100 MG; Start 02/22/17 at 09:00 Furosemide (Lasix) 20 mg DAILY PO Last administered on 03/10/17 09:24; Admin Dose 20 MG; Start 02/22/17 at 09:00 Magnesium Oxide (Mag-Ox 400) 400 mg DAILY PO ; Start 02/22/17 at 09:00 Magnesium Hydroxide (Milk Of Mag) 30 ml DAILY PO ; Start 02/23/17 at 09:00 Diphenhydramine HCl (Benadryl) 25 mg Q6H PRN PO ITCHING Last administered on 13:53; Admin Dose 25 MG; Start 02/23/17 at 02:00 Hydrocortisone (Hydrocortisone 1% Cr) 1 applic BID TOP Last administered on 03/10 09:00; Admin Dose 1 APPLIC; Start 02/24/17 at 21:00 Fluocinolone Acetonide (Synalar 0.01% Cr) 1 applic BID TOP Last administered on 03/07/17 23:50; Admin Dose 1 APPLIC; Start 02/26/17 at 21:00 Carvedilol (Coreg) 3.125 mg BID GTB ; Start 03/10/17 at 21:00 Lisinopril (Zestril) 2.5 mg DAILY PO ; Start 03/11/17 at 09:00 Doxycycline Hyclate (Vibramycin) 100 mg BID PO Last administered on 03/14/17 10 :39; Admin Dose 100 MG; Start 03/11/17 at 17:30; Stop 03/20/17 at 23:55 CRISTIANO URBINA MD Mar 14, 2017 16:58
[2017-03-14 21:09] VITALS: BP 107/71
[2017-03-15 02:34] VITALS: BP 112/62; RESP 18
[2017-03-15] MEDS: PANTOPRAZOLE (EC) 40 MG TAB PO SCH (07:30)
[2017-03-15] MEDS: FLUOCINOLONE TOP SCH ×2 (09:00→20:42)
[2017-03-15] MEDS: MAGNESIUM OXIDE 400 MG TAB PO SCH (09:00)
[2017-03-15] MEDS: DOCUSATE SODIUM 100 MG CAP PO SCH ×2 (09:00→20:41)
[2017-03-15] MEDS: AMIODARONE 200 MG TAB PO SCH ×2 (09:00→20:41)
[2017-03-15] MEDS: HYDROCORTISONE 1% 28 GM CR TOP SCH ×2 (09:00→20:42)
[2017-03-15] MEDS: ASPIRIN (EC) 81 MG TAB PO SCH (09:00)
[2017-03-15] MEDS: MAGNESIUM HYDROXIDE 30ML CUP PO SCH (09:00)
[2017-03-15] MEDS: LISINOPRIL 5 MG TAB PO SCH (09:00)
[2017-03-15] MEDS: FUROSEMIDE 20 MG TAB PO SCH (09:00)
[2017-03-15 09:04] VITALS: BP 117/81; RESP 20
[2017-03-15] MEDS: DOXYCYCLINE 100 MG TAB PO SCH ×2 (10:02→21:40)
[2017-03-15] MEDS ORDERED: KETOCONAZOLE 2% SHAMPOO 120 ML BTL TOP PRN (12:00)
[2017-03-15] MEDS: ONDANSETRON 4 MG TAB PO PRN ×2 (12:26→21:40)
--- NOTE | 2017-03-15 18:05 | PN ---
Date/Time of Note Date/Time of Note DATE: 03/15/17 TIME: 18:04 Assessment/Plan VTE Prophylaxis VTE Prophylaxis Intervention: SCD's Lines/Catheters IV Catheter Type (from Nrsg): No IV access Urinary Cath still in place: No Assessment/Plan Assessment/Plan 52-year-old male with pmhx bl UE and LE amputations sent from [facility] for placement at new [facility] cont pain meds cont CV meds -of note, pt seen by cardiology given low EF. outpatient f/u advised for ICD eval given extensive nonadherence hx SW assisting with dispo rivaroxaban on hold for anemia, of note pt refusing all labs. FOBT negative--PT DENIES HE WAS EVER ON THIS MEDICINE hyponatremia: pt refusing labs to check on Na status MRSA bactiuria: unclear if UTI or not as I was not on service at time of diagnosis. Cont doxycycline. 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 gen surg cs placed pt refusing uric acid lowering meds medically clear for discharge pending placement Subjective 24 Hr Interval Summary Free Text/Dictation no new complaints Exam/Review of Systems Vital Signs Vitals Vital Signs Date Time Temp Pulse Resp B/P Pulse Ox O2 Delivery O2 Flow Rate FiO2 03/15/17 09:04 98.0 85 20 117/81 03/14/17 14:00 98 Intake and Output 03/14/17 03/14/17 03/15/17 15:00 23:00 07:00 Intake Total 1050 ml 500 ml Output Total 600 ml 700 ml Balance 450 ml -200 ml Exam laying in bed no mrg lungs clear abd soft no rashes Medications Medications Current Medications Acetaminophen/ Hydrocodone Bitart ([place] (5/325)) 1 tab Q4H PRN PO PAIN Last administered on 03/14/17 22:34; Admin Dose 1 TAB; Start 02/22/17 at 01:00 Ondansetron HCl (Zofran Tab) 4 mg Q6H PRN PO NAUSEA AND/OR VOMITING Last administered on 03/15/17 12:26; Admin Dose 4 MG; Start 02/22/17 at 01:00 Acetaminophen (Tylenol Tab) 650 mg Q6H PRN PO PAIN AND OR ELEVATED TEMP; Start 02/22/17 at 01:00 Amiodarone HCl (Cordarone) 200 mg BID PO Last administered on 03/01/17 09:30; Admin Dose 200 MG; Start 02/22/17 at 09:00 Aspirin (Halfprin) 81 mg DAILY PO Last administered on 03/13/17 11:29; Admin Dose 81 MG; Start 02/22/17 at 09:00 Docusate Sodium (Colace) 100 mg BID PO Last administered on 03/13/17 11:29; Admin Dose 100 MG; Start 02/22/17 at 09:00 Furosemide (Lasix) 20 mg DAILY PO Last administered on 03/10/17 09:24; Admin Dose 20 MG; Start 02/22/17 at 09:00 Magnesium Oxide (Mag-Ox 400) 400 mg DAILY PO ; Start 02/22/17 at 09:00 Magnesium Hydroxide (Milk Of Mag) 30 ml DAILY PO ; Start 02/23/17 at 09:00 Diphenhydramine HCl (Benadryl) 25 mg Q6H PRN PO ITCHING Last administered on 22:34; Admin Dose 25 MG; Start 02/23/17 at 02:00 Hydrocortisone (Hydrocortisone 1% Cr) 1 applic BID TOP Last administered on 03/10 09:00; Admin Dose 1 APPLIC; Start 02/24/17 at 21:00 Fluocinolone Acetonide (Synalar 0.01% Cr) 1 applic BID TOP Last administered on 03/07/17 23:50; Admin Dose 1 APPLIC; Start 02/26/17 at 21:00 Carvedilol (Coreg) 3.125 mg BID GTB ; Start 03/10/17 at 21:00 Lisinopril (Zestril) 2.5 mg DAILY PO ; Start 03/11/17 at 09:00 Doxycycline Hyclate (Vibramycin) 100 mg BID PO Last administered on 03/15/17 10 :02; Admin Dose 100 MG; Start 03/11/17 at 17:30; Stop 03/20/17 at 23:55 Ketoconazole (Nizoral Shampoo) 1 applic BID PRN TOP ITCHING; Start 03/15/17 at 12:00 CRISTIANO URBINA MD Mar 15, 2017 18:05
[2017-03-15 18:39] VITALS: BP 114/72; RESP 20
[2017-03-15 20:15] VITALS: BP 114/82; RESP 18
[2017-03-15] MEDS: HYDROCODONE/APAP (5/325) TAB PO PRN (20:41)
[2017-03-16 02:24] VITALS: BP 114/81; RESP 18
[2017-03-16] MEDS: ONDANSETRON 4 MG TAB PO PRN (04:59)
[2017-03-16] MEDS: PANTOPRAZOLE (EC) 40 MG TAB PO SCH (07:30)
[2017-03-16] MEDS: FUROSEMIDE 20 MG TAB PO SCH (09:00)
[2017-03-16] MEDS: AMIODARONE 200 MG TAB PO SCH ×2 (09:00→21:00)
[2017-03-16] MEDS: FLUOCINOLONE TOP SCH ×2 (09:00→21:00)
[2017-03-16] MEDS: HYDROCORTISONE 1% 28 GM CR TOP SCH ×2 (09:00→21:00)
[2017-03-16] MEDS: MAGNESIUM HYDROXIDE 30ML CUP PO SCH (09:00)
[2017-03-16] MEDS: MAGNESIUM OXIDE 400 MG TAB PO SCH (09:00)
[2017-03-16] MEDS: DOCUSATE SODIUM 100 MG CAP PO SCH ×2 (09:00→21:00)
[2017-03-16] MEDS: LISINOPRIL 5 MG TAB PO SCH (09:00)
[2017-03-16] MEDS: ASPIRIN (EC) 81 MG TAB PO SCH (09:00)
[2017-03-16] MEDS: DOXYCYCLINE 100 MG TAB PO SCH ×2 (10:40→21:37)
[2017-03-16 12:38] VITALS: BP 112/74; RESP 20
--- NOTE | 2017-03-16 13:21 | PN ---
Date/Time of Note Date/Time of Note DATE: 03/16/17 TIME: 13:20 Assessment/Plan VTE Prophylaxis VTE Prophylaxis Intervention: SCD's Lines/Catheters IV Catheter Type (from Nrsg): No IV access Urinary Cath still in place: No Assessment/Plan Assessment/Plan 52-year-old male with pmhx bl UE and LE amputations sent from [facility] for placement at new [facility] cont pain meds cont CV meds -of note, pt seen by cardiology given low EF. outpatient f/u advised for ICD eval given extensive nonadherence hx SW assisting with dispo rivaroxaban on hold for anemia, of note pt refusing all labs. FOBT negative--PT DENIES HE WAS EVER ON THIS MEDICINE hyponatremia: pt refusing labs to check on Na status MRSA bactiuria: unclear if UTI or not as I was not on service at time of diagnosis. Cont doxycycline. 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 gen surg cs placed yesterday pt refusing uric acid lowering meds medically clear for discharge pending placement Subjective 24 Hr Interval Summary Free Text/Dictation sleeping Exam/Review of Systems Vital Signs Vitals Vital Signs Date Time Temp Pulse Resp B/P Pulse Ox O2 Delivery O2 Flow Rate FiO2 03/16/17 12:38 97.7 84 20 112/74 03/14/17 14:00 98 Intake and Output 03/15/17 03/15/17 03/16/17 15:00 23:00 07:00 Intake Total 300 ml Output Total 600 ml Balance -300 ml Exam nad resp nonlabored no abd distension no le edema stump sites c/d/i Medications Medications Current Medications Acetaminophen/ Hydrocodone Bitart ([place] (5/325)) 1 tab Q4H PRN PO PAIN Last administered on 03/15/17 20:41; Admin Dose 1 TAB; Start 02/22/17 at 01:00 Ondansetron HCl (Zofran Tab) 4 mg Q6H PRN PO NAUSEA AND/OR VOMITING Last administered on 03/16/17 04:59; Admin Dose 4 MG; Start 02/22/17 at 01:00 Acetaminophen (Tylenol Tab) 650 mg Q6H PRN PO PAIN AND OR ELEVATED TEMP; Start 02/22/17 at 01:00 Amiodarone HCl (Cordarone) 200 mg BID PO Last administered on 03/01/17 09:30; Admin Dose 200 MG; Start 02/22/17 at 09:00 Aspirin (Halfprin) 81 mg DAILY PO Last administered on 03/13/17 11:29; Admin Dose 81 MG; Start 02/22/17 at 09:00 Docusate Sodium (Colace) 100 mg BID PO Last administered on 03/13/17 11:29; Admin Dose 100 MG; Start 02/22/17 at 09:00 Furosemide (Lasix) 20 mg DAILY PO Last administered on 03/10/17 09:24; Admin Dose 20 MG; Start 02/22/17 at 09:00 Magnesium Oxide (Mag-Ox 400) 400 mg DAILY PO ; Start 02/22/17 at 09:00 Magnesium Hydroxide (Milk Of Mag) 30 ml DAILY PO ; Start 02/23/17 at 09:00 Diphenhydramine HCl (Benadryl) 25 mg Q6H PRN PO ITCHING Last administered on 22:34; Admin Dose 25 MG; Start 02/23/17 at 02:00 Hydrocortisone (Hydrocortisone 1% Cr) 1 applic BID TOP Last administered on 03/10 09:00; Admin Dose 1 APPLIC; Start 02/24/17 at 21:00 Fluocinolone Acetonide (Synalar 0.01% Cr) 1 applic BID TOP Last administered on 03/07/17 23:50; Admin Dose 1 APPLIC; Start 02/26/17 at 21:00 Carvedilol (Coreg) 3.125 mg BID GTB ; Start 03/10/17 at 21:00 Lisinopril (Zestril) 2.5 mg DAILY PO ; Start 03/11/17 at 09:00 Doxycycline Hyclate (Vibramycin) 100 mg BID PO Last administered on 03/16/17 10 :40; Admin Dose 100 MG; Start 03/11/17 at 17:30; Stop 03/20/17 at 23:55 Ketoconazole (Nizoral Shampoo) 1 applic BID PRN TOP ITCHING Last administered on 03/15/17 15:30; Admin Dose 1 APPLIC; Start 03/15/17 at 12:00 CRISTIANO URBINA MD Mar 16, 2017 13:21
[2017-03-16 17:06] VITALS: BP 112/73; RESP 20
[2017-03-16] MEDS: DIPHENHYDRAMINE 25 MG CAP PO PRN (21:37)
[2017-03-16] MEDS: HYDROCODONE/APAP (5/325) TAB PO PRN (21:37)
[2017-03-17 02:20] VITALS: BP 108/76; RESP 18
[2017-03-17] MEDS: PANTOPRAZOLE (EC) 40 MG TAB PO SCH ×2 (04:58→10:12)
[2017-03-17] MEDS: LISINOPRIL 5 MG TAB PO SCH (09:00)
[2017-03-17] MEDS: FUROSEMIDE 20 MG TAB PO SCH (09:00)
[2017-03-17] MEDS: DOXYCYCLINE 100 MG TAB PO SCH ×3 (09:00→20:40)
[2017-03-17] MEDS: AMIODARONE 200 MG TAB PO SCH ×2 (09:00→20:55)
[2017-03-17] MEDS: MAGNESIUM OXIDE 400 MG TAB PO SCH (09:00)
[2017-03-17] MEDS: FLUOCINOLONE TOP SCH ×2 (09:00→20:56)
[2017-03-17] MEDS: ASPIRIN (EC) 81 MG TAB PO SCH (09:00)
[2017-03-17] MEDS: MAGNESIUM HYDROXIDE 30ML CUP PO SCH (09:00)
[2017-03-17] MEDS: DOCUSATE SODIUM 100 MG CAP PO SCH ×2 (09:00→20:52)
[2017-03-17] MEDS: HYDROCORTISONE 1% 28 GM CR TOP SCH ×2 (09:00→20:56)
[2017-03-17 10:03] VITALS: BP 108/75; RESP 18
--- NOTE | 2017-03-17 18:11 | PN ---
Date/Time of Note Date/Time of Note DATE: 03/17/17 TIME: 18:10 Assessment/Plan VTE Prophylaxis VTE Prophylaxis Intervention: SCD's Lines/Catheters IV Catheter Type (from Nrsg): No IV access Urinary Cath still in place: No Assessment/Plan Assessment/Plan 52-year-old male with pmhx bl UE and LE amputations sent from [facility] for placement at new [facility] cont pain meds cont CV meds -of note, pt seen by cardiology given low EF. outpatient f/u advised for ICD eval given extensive nonadherence hx SW assisting with dispo rivaroxaban on hold for anemia, of note pt refusing all labs. FOBT negative--PT DENIES HE WAS EVER ON THIS MEDICINE hyponatremia: pt refusing labs to check on Na status MRSA bactiuria: unclear if UTI or not as I was not on service at time of diagnosis. Cont doxycycline. 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 this can be addressed in the outpatient setting with a general surgeon. No compelling indication for inpatient evaluation that would preclude discharge to lower level of care pt refusing uric acid lowering meds medically clear for discharge pending placement Subjective 24 Hr Interval Summary Free Text/Dictation Still rude. Yelling at staff frequently Exam/Review of Systems Vital Signs Vitals Vital Signs Date Time Temp Pulse Resp B/P Pulse Ox O2 Delivery O2 Flow Rate FiO2 03/17/17 10:03 97.6 18 108/75 95 03/17/17 02:20 80 Intake and Output 03/16/17 03/16/17 03/17/17 15:00 23:00 07:00 Intake Total 750 ml 850 ml Output Total 500 ml 550 ml Balance 250 ml 300 ml Exam nad, yells often resp nonlabored no gross abd distension no rashes stump sites healed Medications Medications Current Medications Acetaminophen/ Hydrocodone Bitart ([place] (5/325)) 1 tab Q4H PRN PO PAIN Last administered on 03/16/17 21:37; Admin Dose 1 TAB; Start 02/22/17 at 01:00 Ondansetron HCl (Zofran Tab) 4 mg Q6H PRN PO NAUSEA AND/OR VOMITING Last administered on 03/16/17 04:59; Admin Dose 4 MG; Start 02/22/17 at 01:00 Acetaminophen (Tylenol Tab) 650 mg Q6H PRN PO PAIN AND OR ELEVATED TEMP; Start 02/22/17 at 01:00 Amiodarone HCl (Cordarone) 200 mg BID PO Last administered on 03/01/17 09:30; Admin Dose 200 MG; Start 02/22/17 at 09:00 Aspirin (Halfprin) 81 mg DAILY PO Last administered on 03/13/17 11:29; Admin Dose 81 MG; Start 02/22/17 at 09:00 Docusate Sodium (Colace) 100 mg BID PO Last administered on 03/13/17 11:29; Admin Dose 100 MG; Start 02/22/17 at 09:00 Furosemide (Lasix) 20 mg DAILY PO Last administered on 03/10/17 09:24; Admin Dose 20 MG; Start 02/22/17 at 09:00 Magnesium Oxide (Mag-Ox 400) 400 mg DAILY PO ; Start 02/22/17 at 09:00 Magnesium Hydroxide (Milk Of Mag) 30 ml DAILY PO ; Start 02/23/17 at 09:00 Diphenhydramine HCl (Benadryl) 25 mg Q6H PRN PO ITCHING Last administered on 21:37; Admin Dose 25 MG; Start 02/23/17 at 02:00 Hydrocortisone (Hydrocortisone 1% Cr) 1 applic BID TOP Last administered on 03/10 09:00; Admin Dose 1 APPLIC; Start 02/24/17 at 21:00 Fluocinolone Acetonide (Synalar 0.01% Cr) 1 applic BID TOP Last administered on 03/07/17 23:50; Admin Dose 1 APPLIC; Start 02/26/17 at 21:00 Carvedilol (Coreg) 3.125 mg BID GTB ; Start 03/10/17 at 21:00 Lisinopril (Zestril) 2.5 mg DAILY PO ; Start 03/11/17 at 09:00 Doxycycline Hyclate (Vibramycin) 100 mg BID PO Last administered on 03/17/17 11 :19; Admin Dose 100 MG; Start 03/11/17 at 17:30; Stop 03/20/17 at 23:55 Ketoconazole (Nizoral Shampoo) 1 applic BID PRN TOP ITCHING Last administered on 03/15/17 15:30; Admin Dose 1 APPLIC; Start 03/15/17 at 12:00 CRISTIANO URBINA MD Mar 17, 2017 18:11
[2017-03-17 20:13] VITALS: BP 116/84; RESP 18
[2017-03-17] MEDS: HYDROCODONE/APAP (5/325) TAB PO PRN (21:31)
[2017-03-17] MEDS: DIPHENHYDRAMINE 25 MG CAP PO PRN (21:31)
[2017-03-17] MEDS: ONDANSETRON 4 MG TAB PO PRN (21:31)
[2017-03-18 03:03] VITALS: BP 113/85; RESP 18
[2017-03-18] MEDS: FLUOCINOLONE TOP SCH ×2 (09:00→21:00)
[2017-03-18] MEDS: ASPIRIN (EC) 81 MG TAB PO SCH (09:00)
[2017-03-18] MEDS: AMIODARONE 200 MG TAB PO SCH ×2 (09:00→21:00)
[2017-03-18] MEDS: MAGNESIUM HYDROXIDE 30ML CUP PO SCH (09:00)
[2017-03-18] MEDS: LISINOPRIL 5 MG TAB PO SCH (09:00)
[2017-03-18] MEDS: FUROSEMIDE 20 MG TAB PO SCH (09:00)
[2017-03-18] MEDS: MAGNESIUM OXIDE 400 MG TAB PO SCH (09:00)
[2017-03-18] MEDS: HYDROCORTISONE 1% 28 GM CR TOP SCH ×2 (09:00→21:00)
[2017-03-18] MEDS: DOCUSATE SODIUM 100 MG CAP PO SCH ×2 (09:00→21:00)
[2017-03-18] MEDS: DOXYCYCLINE 100 MG TAB PO SCH ×2 (11:45→21:41)
[2017-03-18 15:07] VITALS: BP 111/81; RESP 16
--- NOTE | 2017-03-18 16:04 | PN ---
Date/Time of Note Date/Time of Note DATE: 03/18/17 TIME: 16:02 Assessment/Plan VTE Prophylaxis VTE Prophylaxis Intervention: SCD's Lines/Catheters IV Catheter Type (from Nrsg): No IV access Urinary Cath still in place: No Assessment/Plan Assessment/Plan 52-year-old male with pmhx bl UE and LE amputations sent from [facility] for placement at [facility] cont pain meds cont CV meds -of note, pt seen by cardiology given low EF. outpatient f/u advised for ICD eval given extensive nonadherence hx rivaroxaban on hold for anemia, of note pt refusing all labs. FOBT negative--PT DENIES HE WAS EVER ON THIS MEDICINE hyponatremia: pt refusing labs to check on Na status MRSA bacteriuria: unclear if UTI or not as I was not on service at time of diagnosis. Cont doxycycline. 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 this can be addressed in the outpatient setting with a general surgeon. No compelling indication for inpatient evaluation that would preclude discharge to lower level of care pt refusing uric acid lowering meds medically clear for discharge pending placement Subjective 24 Hr Interval Summary Free Text/Dictation Frequently yelling Exam/Review of Systems Vital Signs Vitals Vital Signs Date Time Temp Pulse Resp B/P Pulse Ox O2 Delivery O2 Flow Rate FiO2 03/18/17 15:07 97.6 76 16 111/81 03/17/17 10:03 95 Intake and Output 03/17/17 03/17/17 03/18/17 15:00 23:00 07:00 Intake Total 200 ml 500 ml Output Total 250 ml 350 ml Balance -50 ml 150 ml Exam no gross resp distress no gross abd distension no reported rashes no reported edema Medications Medications Current Medications Acetaminophen/ Hydrocodone Bitart ([place] (5/325)) 1 tab Q4H PRN PO PAIN Last administered on 03/17/17 21:31; Admin Dose 1 TAB; Start 02/22/17 at 01:00 Ondansetron HCl (Zofran Tab) 4 mg Q6H PRN PO NAUSEA AND/OR VOMITING Last administered on 03/17/17 21:31; Admin Dose 4 MG; Start 02/22/17 at 01:00 Acetaminophen (Tylenol Tab) 650 mg Q6H PRN PO PAIN AND OR ELEVATED TEMP; Start 02/22/17 at 01:00 Amiodarone HCl (Cordarone) 200 mg BID PO Last administered on 03/01/17 09:30; Admin Dose 200 MG; Start 02/22/17 at 09:00 Aspirin (Halfprin) 81 mg DAILY PO Last administered on 03/13/17 11:29; Admin Dose 81 MG; Start 02/22/17 at 09:00 Docusate Sodium (Colace) 100 mg BID PO Last administered on 03/13/17 11:29; Admin Dose 100 MG; Start 02/22/17 at 09:00 Furosemide (Lasix) 20 mg DAILY PO Last administered on 03/10/17 09:24; Admin Dose 20 MG; Start 02/22/17 at 09:00 Magnesium Oxide (Mag-Ox 400) 400 mg DAILY PO ; Start 02/22/17 at 09:00 Magnesium Hydroxide (Milk Of Mag) 30 ml DAILY PO ; Start 02/23/17 at 09:00 Diphenhydramine HCl (Benadryl) 25 mg Q6H PRN PO ITCHING Last administered on 21:31; Admin Dose 25 MG; Start 02/23/17 at 02:00 Hydrocortisone (Hydrocortisone 1% Cr) 1 applic BID TOP Last administered on 03/10 09:00; Admin Dose 1 APPLIC; Start 02/24/17 at 21:00 Fluocinolone Acetonide (Synalar 0.01% Cr) 1 applic BID TOP Last administered on 03/07/17 23:50; Admin Dose 1 APPLIC; Start 02/26/17 at 21:00 Carvedilol (Coreg) 3.125 mg BID GTB ; Start 03/10/17 at 21:00 Lisinopril (Zestril) 2.5 mg DAILY PO ; Start 03/11/17 at 09:00 Doxycycline Hyclate (Vibramycin) 100 mg BID PO Last administered on 03/18/17 11 :45; Admin Dose 100 MG; Start 03/11/17 at 17:30; Stop 03/20/17 at 23:55 Ketoconazole (Nizoral Shampoo) 1 applic BID PRN TOP ITCHING Last administered on 03/15/17 15:30; Admin Dose 1 APPLIC; Start 03/15/17 at 12:00 CRISTIANO URBINA MD Mar 18, 2017 16:04
[2017-03-18] MEDS: HYDROCODONE/APAP (5/325) TAB PO PRN (17:37)
[2017-03-18] MEDS: ONDANSETRON 4 MG TAB PO PRN (17:37)
[2017-03-18] MEDS: DIPHENHYDRAMINE 25 MG CAP PO PRN (17:37)
[2017-03-18 20:00] VITALS: BP 115/89; RESP 19
[2017-03-19 04:02] VITALS: BP 91/63; RESP 18
[2017-03-19] MEDS: PANTOPRAZOLE (EC) 40 MG TAB PO SCH (07:30)
[2017-03-19 09:00] VITALS: BP 112/78; RESP 20
[2017-03-19] MEDS: AMIODARONE 200 MG TAB PO SCH ×2 (09:00→21:41)
[2017-03-19] MEDS: MAGNESIUM OXIDE 400 MG TAB PO SCH (09:00)
[2017-03-19] MEDS: FLUOCINOLONE TOP SCH ×2 (09:00→21:00)
[2017-03-19] MEDS: ASPIRIN (EC) 81 MG TAB PO SCH (09:00)
[2017-03-19] MEDS: LISINOPRIL 5 MG TAB PO SCH (09:00)
[2017-03-19] MEDS: HYDROCORTISONE 1% 28 GM CR TOP SCH ×2 (09:00→21:00)
[2017-03-19] MEDS: MAGNESIUM HYDROXIDE 30ML CUP PO SCH (09:00)
[2017-03-19] MEDS: DOCUSATE SODIUM 100 MG CAP PO SCH ×2 (09:00→21:00)
[2017-03-19] MEDS: FUROSEMIDE 20 MG TAB PO SCH (09:00)
[2017-03-19] MEDS: DOXYCYCLINE 100 MG TAB PO SCH ×2 (09:50→21:00)
--- NOTE | 2017-03-19 15:17 | PN ---
Date/Time of Note Date/Time of Note DATE: 03/19/17 TIME: 15:16 Assessment/Plan VTE Prophylaxis VTE Prophylaxis Intervention: SCD's Lines/Catheters IV Catheter Type (from Nrsg): No IV access Urinary Cath still in place: No Assessment/Plan Assessment/Plan 52-year-old male with pmhx bl UE and LE amputations sent from [facility] new [facility] cont pain meds cont CV meds -of note, pt seen by cardiology given low EF. outpatient f/u advised for ICD eval given extensive nonadherence hx rivaroxaban on hold for anemia, of note pt refusing all labs. FOBT negative--PT DENIES HE WAS EVER ON THIS MEDICINE hyponatremia: pt refusing labs to check on Na status MRSA bacteriuria: unclear if UTI or not as I was not on service at time of diagnosis. Cont doxycycline. 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 this can be addressed in the outpatient setting with a general surgeon. No compelling indication for inpatient evaluation that would preclude discharge to lower level of care pt refusing uric acid lowering meds medically clear for discharge pending placement Talked to CM which may have found a place for him to go tomorrow Subjective 24 Hr Interval Summary Free Text/Dictation sleeping Exam/Review of Systems Vital Signs Vitals Vital Signs Date Time Temp Pulse Resp B/P Pulse Ox O2 Delivery O2 Flow Rate FiO2 03/19/17 09:00 97.6 79 20 112/78 94 Intake and Output 03/18/17 03/18/17 03/19/17 15:00 23:00 07:00 Intake Total 1080 ml 300 ml Output Total 600 ml 750 ml Balance 480 ml -450 ml Exam resp nonlabored no abd distension no rashes no edema stump wounds well healed Medications Medications Current Medications Acetaminophen/ Hydrocodone Bitart ([place] (5/325)) 1 tab Q4H PRN PO PAIN Last administered on 03/18/17 17:37; Admin Dose 1 TAB; Start 02/22/17 at 01:00 Ondansetron HCl (Zofran Tab) 4 mg Q6H PRN PO NAUSEA AND/OR VOMITING Last administered on 03/18/17 17:37; Admin Dose 4 MG; Start 02/22/17 at 01:00 Acetaminophen (Tylenol Tab) 650 mg Q6H PRN PO PAIN AND OR ELEVATED TEMP; Start 02/22/17 at 01:00 Amiodarone HCl (Cordarone) 200 mg BID PO Last administered on 03/01/17 09:30; Admin Dose 200 MG; Start 02/22/17 at 09:00 Aspirin (Halfprin) 81 mg DAILY PO Last administered on 03/13/17 11:29; Admin Dose 81 MG; Start 02/22/17 at 09:00 Docusate Sodium (Colace) 100 mg BID PO Last administered on 03/13/17 11:29; Admin Dose 100 MG; Start 02/22/17 at 09:00 Furosemide (Lasix) 20 mg DAILY PO Last administered on 03/10/17 09:24; Admin Dose 20 MG; Start 02/22/17 at 09:00 Magnesium Oxide (Mag-Ox 400) 400 mg DAILY PO ; Start 02/22/17 at 09:00 Magnesium Hydroxide (Milk Of Mag) 30 ml DAILY PO ; Start 02/23/17 at 09:00 Diphenhydramine HCl (Benadryl) 25 mg Q6H PRN PO ITCHING Last administered on 17:37; Admin Dose 25 MG; Start 02/23/17 at 02:00 Hydrocortisone (Hydrocortisone 1% Cr) 1 applic BID TOP Last administered on 03/10 09:00; Admin Dose 1 APPLIC; Start 02/24/17 at 21:00 Fluocinolone Acetonide (Synalar 0.01% Cr) 1 applic BID TOP Last administered on 03/07/17 23:50; Admin Dose 1 APPLIC; Start 02/26/17 at 21:00 Carvedilol (Coreg) 3.125 mg BID GTB ; Start 03/10/17 at 21:00 Lisinopril (Zestril) 2.5 mg DAILY PO ; Start 03/11/17 at 09:00 Doxycycline Hyclate (Vibramycin) 100 mg BID PO Last administered on 03/19/17 09:50; Admin Dose 100 MG; Start 03/11/17 at 17:30; Stop 03/20/17 at 23:55 Ketoconazole (Nizoral Shampoo) 1 applic BID PRN TOP ITCHING Last administered on 03/15/17 15:30; Admin Dose 1 APPLIC; Start 03/15/17 at 12:00 CRISTIANO URBINA MD Mar 19, 2017 15:17
[2017-03-19] MEDS: DIPHENHYDRAMINE 25 MG CAP PO PRN (17:57)
[2017-03-19] MEDS: HYDROCODONE/APAP (5/325) TAB PO PRN (17:57)
[2017-03-19] MEDS: ONDANSETRON 4 MG TAB PO PRN (17:57)
[2017-03-19 20:00] VITALS: BP 115/78; RESP 18
[2017-03-20 02:00] VITALS: BP 102/79; RESP 18
[2017-03-20] MEDS: PANTOPRAZOLE (EC) 40 MG TAB PO SCH (07:30)
[2017-03-20] MEDS: ASPIRIN (EC) 81 MG TAB PO SCH ×2 (09:00→18:29)
[2017-03-20] MEDS: LISINOPRIL 5 MG TAB PO SCH (09:00)
[2017-03-20] MEDS: DOXYCYCLINE 100 MG TAB PO SCH ×2 (09:00→21:00)
[2017-03-20] MEDS: FLUOCINOLONE TOP SCH ×2 (09:00→21:00)
[2017-03-20] MEDS: FUROSEMIDE 20 MG TAB PO SCH (09:00)
[2017-03-20] MEDS: MAGNESIUM OXIDE 400 MG TAB PO SCH (09:00)
[2017-03-20] MEDS: HYDROCORTISONE 1% 28 GM CR TOP SCH ×2 (09:00→21:00)
[2017-03-20] MEDS: AMIODARONE 200 MG TAB PO SCH ×2 (09:00→21:00)
[2017-03-20] MEDS: MAGNESIUM HYDROXIDE 30ML CUP PO SCH (09:00)
[2017-03-20] MEDS: DOCUSATE SODIUM 100 MG CAP PO SCH ×2 (09:00→21:00)
[2017-03-20 14:27] VITALS: BP 131/88; RESP 17
--- NOTE | 2017-03-20 15:21 | PN ---
Date/Time of Note Date/Time of Note DATE: 03/20/17 TIME: 15:09 Assessment/Plan VTE Prophylaxis VTE Prophylaxis Intervention: other Lines/Catheters IV Catheter Type (from Nrsg): No IV access Urinary Cath still in place: No Exam/Review of Systems Vital Signs Vitals Vital Signs Date Time Temp Pulse Resp B/P Pulse Ox O2 Delivery O2 Flow Rate FiO2 03/20/17 14:27 98.2 79 17 131/88 03/19/17 09:00 94 Intake and Output 03/19/17 03/19/17 03/20/17 15:00 23:00 07:00 Intake Total 240 ml 425 ml Output Total 459 ml 200 ml Balance -219 ml 225 ml Medications Medications Current Medications Acetaminophen/ Hydrocodone Bitart ([place] (5/325)) 1 tab Q4H PRN PO PAIN Last administered on 03/19/17 17:57; Admin Dose 1 TAB; Start 02/22/17 at 01:00 Ondansetron HCl (Zofran Tab) 4 mg Q6H PRN PO NAUSEA AND/OR VOMITING Last administered on 03/19/17 17:57; Admin Dose 4 MG; Start 02/22/17 at 01:00 Acetaminophen (Tylenol Tab) 650 mg Q6H PRN PO PAIN AND OR ELEVATED TEMP; Start 02/22/17 at 01:00 Amiodarone HCl (Cordarone) 200 mg BID PO Last administered on 03/19/17 21:41; Admin Dose 200 MG; Start 02/22/17 at 09:00 Aspirin (Halfprin) 81 mg DAILY PO Last administered on 03/13/17 11:29; Admin Dose 81 MG; Start 02/22/17 at 09:00 Docusate Sodium (Colace) 100 mg BID PO Last administered on 03/13/17 11:29; Admin Dose 100 MG; Start 02/22/17 at 09:00 Furosemide (Lasix) 20 mg DAILY PO Last administered on 03/10/17 09:24; Admin Dose 20 MG; Start 02/22/17 at 09:00 Magnesium Oxide (Mag-Ox 400) 400 mg DAILY PO ; Start 02/22/17 at 09:00 Magnesium Hydroxide (Milk Of Mag) 30 ml DAILY PO ; Start 02/23/17 at 09:00 Diphenhydramine HCl (Benadryl) 25 mg Q6H PRN PO ITCHING Last administered on 17:57; Admin Dose 25 MG; Start 02/23/17 at 02:00 Hydrocortisone (Hydrocortisone 1% Cr) 1 applic BID TOP Last administered on 03/10 09:00; Admin Dose 1 APPLIC; Start 02/24/17 at 21:00 Fluocinolone Acetonide (Synalar 0.01% Cr) 1 applic BID TOP Last administered on 03/07/17 23:50; Admin Dose 1 APPLIC; Start 02/26/17 at 21:00 Carvedilol (Coreg) 3.125 mg BID GTB ; Start 03/10/17 at 21:00 Lisinopril (Zestril) 2.5 mg DAILY PO ; Start 03/11/17 at 09:00 Doxycycline Hyclate (Vibramycin) 100 mg BID PO Last administered on 03/19/17 09:50; Admin Dose 100 MG; Start 03/11/17 at 17:30; Stop 03/20/17 at 23:55 Ketoconazole (Nizoral Shampoo) 1 applic BID PRN TOP ITCHING Last administered on 03/15/17 15:30; Admin Dose 1 APPLIC; Start 03/15/17 at 12:00 NIMO MOREJON MD Mar 20, 2017 15:19
--- NOTE | 2017-03-20 16:11 | PN ---
Date/Time of Note Date/Time of Note DATE: 03/20/17 TIME: 16:04 Assessment/Plan VTE Prophylaxis VTE Prophylaxis Intervention: contraindicated Lines/Catheters IV Catheter Type (from Nrs): No IV access Urinary Cath still in place: No Assessment/Plan Chief Complaint/Hosp Course Assessment/Plan: 52-year-old male prior history of CAD with stent, sent from intermediate facility prior history of bilateral lower extremity amputations presents with: 1. Chronic pain-resolved -Patient has bilateral upper and lower extremity limb amputation and has been residing at the [facility]. Patient was transferred to [facility] for "pain management" -Palliative care/pain management consult appreciated, follow-up with them and case manager specialist regarding possible placement options for patient. 2. 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 Patient states the procedure was performed about 10 years ago -Supportive care 3. CAD with a history of stent, also CM as EF = 25% -Per cardiology team, AICD consideration for placement of this can be determined as an outpatient as long as patient becomes more compliant with his cardiac medications. -Continue MARIXA inhibitor and beta-rylee for now, although patient presently refusing to take these 4. Likely history of systolic dysfunction: Echocardiogram showed ejection fraction of 25%,Mild concentric left ventricular hypertrophy. Severe enlargement of left ventricle cavity. Severe global left ventricular systolic dysfunction. And moderate aortic regurg. -Continue current medications -See #3 5. Anemia, likely secondary to chronic disease-last blood draw was on February 21 -FOBT is still pending, to evaluate for GI blood loss especially given patient apparently has been on rivaroxaban in the past (although patient denies ever being on this medication) 6. Mild hyponatremia-apparently patient refusing labs to further evaluate this , patient is asymptomatic -Monitor for now 7. MRSA UTI: Patient has been on doxycycline PO meds, although he did refuse it this morning -we will go ahead and order repeat urine culture to make sure the MRSA has cleared out of his system -otherwise medically clear for discharge pending placement 8. gout: pt with tophi in L elbow but no effusion. this can be addressed in the outpatient setting with a general surgeon. No compelling indication for inpatient evaluation that would preclude discharge to lower level of care pt refusing uric acid lowering meds Dispo: Awaiting final decision on hospice placement options as inpatient for this patient. Will follow up with case manager specialist on this -inside outside sales representative from [facility] is actively talking to patient right now -again patient is medically clear for discharge pending placement Problems: Subjective 24 Hr Interval Summary Free Text/Dictation Patient meeting with hospice team inside outside sales representative from [place] presently. Refused doxycycline this morning. Exam/Review of Systems Vital Signs Vitals Vital Signs Date Time Temp Pulse Resp B/P Pulse Ox O2 Delivery O2 Flow Rate FiO2 03/20/17 14:27 98.2 79 17 131/88 03/19/17 09:00 94 Intake and Output 03/19/17 03/19/17 03/20/17 15:00 23:00 07:00 Intake Total 240 ml 425 ml Output Total 459 ml 200 ml Balance -219 ml 225 ml Exam resp nonlabored no abd distension no rashes no edema stump wounds well healed Medications Medications Current Medications Acetaminophen/ Hydrocodone Bitart (Jellico (5/325)) 1 tab Q4H PRN PO PAIN Last administered on 03/19/17 17:57; Admin Dose 1 TAB; Start 02/22/17 at 01:00 Ondansetron HCl (Zofran Tab) 4 mg Q6H PRN PO NAUSEA AND/OR VOMITING Last administered on 03/19/17 17:57; Admin Dose 4 MG; Start 02/22/17 at 01:00 Acetaminophen (Tylenol Tab) 650 mg Q6H PRN PO PAIN AND OR ELEVATED TEMP; Start 02/22/17 at 01:00 Amiodarone HCl (Cordarone) 200 mg BID PO Last administered on 03/19/17 21:41; Admin Dose 200 MG; Start 02/22/17 at 09:00 Aspirin (Halfprin) 81 mg DAILY PO Last administered on 03/13/17 11:29; Admin Dose 81 MG; Start 02/22/17 at 09:00 Docusate Sodium (Colace) 100 mg BID PO Last administered on 03/13/17 11:29; Admin Dose 100 MG; Start 02/22/17 at 09:00 Furosemide (Lasix) 20 mg DAILY PO Last administered on 03/10/17 09:24; Admin Dose 20 MG; Start 02/22/17 at 09:00 Magnesium Oxide (Mag-Ox 400) 400 mg DAILY PO ; Start 02/22/17 at 09:00 Magnesium Hydroxide (Milk Of Mag) 30 ml DAILY PO ; Start 02/23/17 at 09:00 Diphenhydramine HCl (Benadryl) 25 mg Q6H PRN PO ITCHING Last administered on 17:57; Admin Dose 25 MG; Start 02/23/17 at 02:00 Hydrocortisone (Hydrocortisone 1% Cr) 1 applic BID TOP Last administered on 03/10 09:00; Admin Dose 1 APPLIC; Start 02/24/17 at 21:00 Fluocinolone Acetonide (Synalar 0.01% Cr) 1 applic BID TOP Last administered on 03/07/17 23:50; Admin Dose 1 APPLIC; Start 02/26/17 at 21:00 Carvedilol (Coreg) 3.125 mg BID GTB ; Start 03/10/17 at 21:00 Lisinopril (Zestril) 2.5 mg DAILY PO ; Start 03/11/17 at 09:00 Doxycycline Hyclate (Vibramycin) 100 mg BID PO Last administered on 03/19/17 09:50; Admin Dose 100 MG; Start 03/11/17 at 17:30; Stop 03/20/17 at 23:55 Ketoconazole (Nizoral Shampoo) 1 applic BID PRN TOP ITCHING Last administered on 03/15/17 15:30; Admin Dose 1 APPLIC; Start 03/15/17 at 12:00 LIZ MACKEY Mar 20, 2017 16:11
[2017-03-20 19:54] VITALS: BP 131/86; RESP 18
[2017-03-20 23:43] LABS: ADD UMIC YES; UR ASCORBIC ACID NEGATIVE (NEGATIVE); UR BILIRUBIN (Dip) NEGATIVE (NEGATIVE); UR BLOOD (Dip) NEGATIVE (NEGATIVE); UR CLARITY CLEAR (CLEAR); UR COLOR YELLOW (YELLOW); UR GLUCOSE (Dip) NEGATIVE (NEGATIVE); UR KETONES (Dip) NEGATIVE (NEGATIVE); UR LEUKOCYTE ESTERASE (Dip) NEGATIVE Leu/ul (NEGATIVE); UR NITRITE (Dip) NEGATIVE (NEGATIVE); UR RBC 1 /HPF (0-5); UR TOTAL PROTEIN (Dip) 2+ mg/dl (NEGATIVE); UR UROBILINOGEN (Dip) 1+ mg/dL (NEGATIVE)
[2017-03-21] MEDS: HYDROCODONE/APAP (5/325) TAB PO PRN ×2 (00:41→08:36)
[2017-03-21 02:13] VITALS: BP 115/88; RESP 20
[2017-03-21] MEDS: PANTOPRAZOLE (EC) 40 MG TAB PO SCH (07:30)
[2017-03-21] MEDS: DOCUSATE SODIUM 100 MG CAP PO SCH (07:58)
[2017-03-21] MEDS: AMIODARONE 200 MG TAB PO SCH (07:58)
[2017-03-21] MEDS: ASPIRIN (EC) 81 MG TAB PO SCH (07:59)
[2017-03-21] MEDS: MAGNESIUM OXIDE 400 MG TAB PO SCH (07:59)
[2017-03-21] MEDS: FUROSEMIDE 20 MG TAB PO SCH (07:59)
[2017-03-21] MEDS: MAGNESIUM HYDROXIDE 30ML CUP PO SCH (08:01)
[2017-03-21] MEDS: LISINOPRIL 5 MG TAB PO SCH (08:02)
[2017-03-21] MEDS: HYDROCORTISONE 1% 28 GM CR TOP SCH (08:03)
[2017-03-21] MEDS: FLUOCINOLONE TOP SCH (08:03)
[2017-03-21 08:37] VITALS: BP 125/94
--- NOTE | 2017-03-21 09:38 | DS ---
Date/Time of Note Date/Time of Note DATE: 03/21/17 TIME: 09:30 Discharge Summary Admission/Discharge Info Admit Date/Time Feb 21, 2017 at 21:33 Discharge Date/Time Discharge Diagnosis 1. Chronic pain-resolved 2. 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 Patient states the procedure was performed about 10 years ago -Supportive care 3. CAD with a history of stent, also CM as EF = 25% -Per cardiology team, AICD consideration for placement of this can be determined as an outpatient as long as patient becomes more compliant with his cardiac medications. -Continue MARIXA inhibitor and beta-rylee for now 4. Likely history of systolic dysfunction: Echocardiogram showed ejection fraction of 25%,Mild concentric left ventricular hypertrophy. Severe enlargement of left ventricle cavity. Severe global left ventricular systolic dysfunction. And moderate aortic regurg. 5. Anemia, likely secondary to chronic disease 6. Mild hyponatremia- 7. MRSA UTI: 8. gout: pt with tophi in L elbow but no effusion. this can be addressed in the outpatient setting with a general surgeon. No compelling indication for inpatient evaluation that would preclude discharge to lower level of care Patient Condition: Stable Hx of Present Illness Hospital Course This is a 52-year-old male with history of CAD with stent, likely systolic dysfunction, bilateral upper and lower extremity limb amputation who was [facility]. Patient stated that he did not like that facility because his pain is not controlled, does not like the food and the bed is uncomfortable. When he presented to [facility] for this admission, his heart rate was 106 otherwise rest of his vitals and limits of normal range. Labs shows hemoglobin of 7.9, sodium 131, BUN 27 and alk phos 371 otherwise CBC and CMP within acceptable range. Patient reportedly refused blood transfusion in the ER. Patient was [facility] surgical floor. Treated for MRSA UTI with appropriate antibiotics, also seen by cardiology team because of prior history of coronary artery disease with stent, ejection fraction found to be 25% with cardiomyopathy, patient was placed on MARIXA inhibitor and beta-rylee. Patient needs to be considered for AICD placement as an outpatient if he is compliant with his cardiac medications, per cardiology team recommendations. 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 His hyponatremia resolved and he had no signs of any upper or lower GI bleeding. Patient will be transferred to long-term care facility including hospice [place]. See printed medical reconciliation list for full list of discharge medications. Home Meds Active Scripts Levofloxacin* (Levaquin*) 750 Mg Tablet, 750 MG PO DAILY for 7 Days, TAB Prov:LIZ MACKEY. 03/10/17 Hydrocodone/Acetaminophen (Argyle 5-325 Tablet) 1 Each Tablet, 1 EACH PO Q6, #10 TAB Prov:CHINA BRADLEY DO 02/21/17 Naproxen* (Naproxen*) 375 Mg Tablet, 375 MG PO BID Y for PAIN, #10 TAB Prov:KIRKCHINA DO 02/21/17 Reported Medications Rivaroxaban* (Xarelto*) 15 Mg Tablet, 15 MG PO WITH DINNER, TAB 02/21/17 Pantoprazole* (Pantoprazole*) 40 Mg Tablet.dr, 40 MG PO AC BREAKFAST, TAB 02/21/17 Ondansetron Hcl* (Ondansetron Hcl*) 4 Mg Tablet, 4 MG PO Q6H Y for NAUSEA AND/ OR VOMITING, TAB 02/21/17 Morphine Sulfate* (Morphine* Liq) 10 Mg/5 Ml Solution, 2.5 MG PO Q6H Y for NEEDED, ML FOR SEVERE PAIN 7-10 SCALE 02/21/17 Magnesium Hydroxide* (Milk Of Magnesia*) 400 Mg/5 Ml Oral.susp, 30 ML PO DAILY, ML 02/21/17 Metoprolol Tartrate* (Lopressor*) 25 Mg Tab, 12.5 MG PO BID, #60 TAB HOLD FOR BP<100 OR HR<60 02/21/17 Magnesium Oxide* (Magnesium Oxide*) 400 Mg Tablet, 400 MG PO DAILY, TAB 02/21/17 Lorazepam* (Lorazepam*) 0.5 Mg Tablet, 0.5 MG PO Q4 Y for ANXIETY, TAB 02/21/17 Ibuprofen* (Ibuprofen*) 400 Mg Tablet, 400 MG PO Q6H Y for PAIN, TAB MAILD PAIN 02/21/17 Furosemide* (Furosemide*) 20 Mg Tablet, 20 MG PO DAILY, #60 TAB 02/21/17 Docusate Sodium* (Docusate Sodium*) 100 Mg Capsule, 100 MG PO BID, #60 CAP 02/21/17 Aspirin* (Aspirin* EC) 81 Mg Tablet.dr, 81 MG PO DAILY, TAB 02/21/17 Amiodarone Hcl* (Amiodarone Hcl*) 200 Mg Tablet, 200 MG PO BID, #60 TAB HOLD FOR SBP<100 02/21/17 Albuterol Sulfate* (Albuterol Sulfate* Neb) 0.083%-3 Ml Neb, 1.25 MG NEB Q4H, # 30 VIAL 02/21/17 Acetaminophen* (Acetaminophen*) 325 Mg Tablet, 325 MG PO Q4H Y for PAIN AND OR ELEVATED TEMP, #30 TAB FOR TEMP.>100F 02/21/17 Primary Care Provider Care Physician No Primary Time spent on discharge: > 30 minutes Pending Labs Laboratory Tests Test 03/20/17 23:00 Urine Color YELLOW (YELLOW) Urine Clarity CLEAR (CLEAR) Urine pH 5.0 (5.0-9.0) Urine Specific [place] 1.010 (1.003-1.030) Urine Ketones NEGATIVEmg/dL (NEGATIVE) Urine Nitrite NEGATIVEmg/dL (NEGATIVE) Urine Bilirubin NEGATIVEmg/dL (NEGATIVE) Urine Urobilinogen 1+mg/dL (NEGATIVE) Urine Leukocyte Esterase NEGATIVELeu/ul (NEGATIVE) Urine Microscopic RBC 1/HPF (0-5) Urine Microscopic WBC 2/HPF (0-5) Urine Hemoglobin NEGATIVEmg/dL (NEGATIVE) Urine Glucose NEGATIVEmg/dL (NEGATIVE) Urine Total Protein 2+mg/dl (NEGATIVE) LIZ MACKEY Mar 21, 2017 09:38
== END 2017-03-21 11:30 | DRG 92 ==
LOC: E/R 15:13 → PP2 21:33
PROVIDERS: ADMIT Internal Medicine; ATTEND Internal Medicine
DX: G89.29 Other chronic pain (principal); E87.1 Hypo-osmolality and hyponatremia; I42.9 Cardiomyopathy, unspecified; I50.20 Unspecified systolic (congestive) heart failure; N39.0 Urinary tract infection, site not specified; Z89.9 Acquired absence of limb, unspecified; D63.8 Anemia in other chronic diseases classified elsewhere; Z91.19 Patient's noncompliance with other medical treatment and regimen; I25.10 Atherosclerotic heart disease of native coronary artery without angina pectoris; Z95.5 Presence of coronary angioplasty implant and graft; I44.7 Left bundle-branch block, unspecified; F99 Mental disorder, not otherwise specified; M1A.9XX1 Chronic gout, unspecified, with tophus (tophi); B95.62 Methicillin resistant Staphylococcus aureus infection as the cause of diseases classified elsewhere
CPT/HCPCS: 80053; 80306; 81001; 82270; 85025; 87081; 87086; 93005; 93306; J1630